=== PATIENT | female | born 1940 | race Caucasian/White ===

== ENCOUNTER 2018-12-08 07:58 | Inpatient (IN) ==
--- NOTE | 2018-11-23 13:06 | Anesthesiology Consultation ---
Date of Service November 23, 2018 Assessment & Plan (1) Encounter for pre-operative examination: Plan: Patient evaluated by PCP on 11/09/2018 and was medically cleared for surgery. Patient was added on Monday 11/20 for surgery to be done 11/24. Evaluated at PAT on 11/23/2018. Unable to reach cardiology office for most recent office note pacemaker check and cardiac testing. Was able to obtain most recent echo from PCP, as well as note from cardiology regarding patient's pacer check on . This was not a pacer check report, but does indicate that one was done. Messages left with pacemaker clinic in [place] trying to obtain pacer check. Initially, case discussed with Dr. Jernigan and patient felt to be okay surgical risk despite lack of pacemaker report. Subsequently, patient's lab work came back and showed potassium of 2.8. Discussed with Radha Spangler PA-C at surgeon's office. Patient will be postponed until potassium corrected and worked up by primary care. She will also obtain formal cardiology clearance. Most recent pacer check will need to be obtained prior to surgery when patient gets rescheduled. Chart Review Chart Review: Pending: Refer to Additional Notes / Consult section and Patient seen in Pre Admission Testing Teaching & Discussion Instructed NPO after midnight before surgery, except medications with 15 cc of water. Medication instructions provided according to the [facility] guidelines. History Surgery Operation Date: 11/24/18 08:20 Proposed Procedures p Left Foot Partial Fifth Ray Resection - Juan Hernandez MD Height/Weight Height: 5 ft 3.5 in Weight: 60.5 kg Allergies Allergy/AdvReac Type Severity Reaction Status Date / Time adhesive tape Allergy Intermediate Rash Verified 11/20/18 14:17 amoxicillin Allergy Intermediate Rash Verified 11/20/18 14:17 Medications Home Medications Medication Instructions Recorded Confirmed Last Taken diltiazem CD 240 mg 240 mg PO QPM 07/20/18 11/20/18 09/15/18 10:00 capsule,extended release 24 hr furosemide 20 mg tablet 20 mg PO QPM 07/20/18 11/20/18 09/15/18 10:00 lorazepam 1 mg tablet 0.5 mg PO BID PRN tab 07/20/18 11/20/18 Unknown metformin 500 mg tablet 500 mg PO BID 10/22/18 02/22/19 12/16/18 omeprazole 40 mg capsule,delayed 40 mg PO BID 07/20/18 11/20/18 09/15/18 18:30 release warfarin 2 mg tablet 2.5 mg PO QPM 07/20/18 11/20/18 09/13/18 guaifenesin ER 600 mg tablet, 600 mg PO Q12H PRN 07/27/18 11/20/18 09/15/18 22:00 extended release 12 hr metoprolol succinate ER 50 mg 75 mg PO HS tab 09/11/18 11/20/18 09/15/18 19:00 tablet,extended release 24 hr levothyroxine 88 mcg PO QPM 11/20/18 11/20/18 Unknown Past Medical History Medical History Osteomyelitis (Acute) Pressure ulcer (Acute) Diabetes mellitus (Chronic) On Metformin Diabetic neuropathy (Chronic) Hypothyroid (Chronic) PAD (peripheral artery disease) (Chronic) 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 ON WARFARIN. PPM placed 06/2018. Cardiac pacemaker in situ GERD (gastroesophageal reflux disease) Hypertension Mitral valve disorder Moderate mitral insufficiency and mild mitral stenosis per 12/2017 echo. On anticoagulant therapy Osteoarthritis Past Family History Family History Son Family history of diabetes mellitus Past Surgical History Surgical History S/P arterial stent (Resolved) BILAT LOWER LEGS S/P cardiac pacemaker procedure (Resolved) PLACED 3 MONTHS AGO FOR A FIB. S/P cataract extraction and insertion of intraocular lens (Resolved) R/L S/P left knee arthroscopy (Resolved) Past Anesthesia History No Hx of Anesthesia Complications and No Family Hx of Anesthesia Complications History of PONV No Motion Sickness Screening History of Motion Sickness: No Social History Smoking Status: Never smoker Do You Dip or Chew Tobacco: No Hx Alcohol Use: No Hx Substance Use: No substance use type: does not use Exercise / Class Metabolic Activity III < 4 Walking/Shop/Light housework (Denies CP with ambulation, occ SOB with ambulation, has improved since pacemaker.) Review of Systems Pt denies any recent chest pain, shortness of breath, palpitations, cough, fever or URI. +phlegm in AM, takes Mucinex, chronic. Physical Exam Vital Signs BP: 105/71 P: 72bpm SPO2: 99% RA T: 97.5 R: 16 ENMT Mouth: + dentures (full upper) and + poor dentition Thyromental Distance: > or= 3.5 Finger Breadths (3.5) Mallampati Class: II 6 teeth remain on bottom. Neck normal visual inspection and + limited neck extension Respiratory normal respiratory effort Auscultation: lungs clear to auscultation bilaterally Cardiovascular Rate/Rhythm: + abnormal rate and + abnormal rhythm Heart Sounds: no murmur Vessels: no carotid bruit Extremities: + edema (mild edema on operative foot) Testing Electrocardiogram Date: 11/23/18 Atrial fibrillation at 90 bpm with occasional ventricular paced complexes. Left axis deviation. Pulmonary disease pattern. Nonspecific ST and T wave abnormality. Prolonged QT. No previous EKGs available. *UNCONFIRMED. Echocardiogram Date: 01/26/18 ([facility]) EF: 50-55% Normal left ventricular systolic function. Mild concentric LVH. Dilated left atrium and right-sided chambers. Sclerosed mitral valve with mitral annular calcification and at least moderate 2-3+ mitral insufficiency and mild mitral stenosis. Moderate to severe tricuspid insufficiency related to dilated tricuspid annulus and evidence of mild to moderate pulmonary hypertension. Laboratory Results 11/23/18 15:02 11/23/18 15:02 PT 18.4 Seconds (9.0-12.0) H 11/23/18 15:02 INR 1.9 (0.9-1.1) H 11/23/18 15:02 APTT 31.1 Seconds (21.0-31.0) H 11/23/18 15:02
--- NOTE | 2018-11-23 14:20 | PAT Medication Instructions ---
Medication Instructions Date of Service November 23, 2018 Home Medications diltiazem CD 240 mg 240 mg PO QPM furosemide 20 mg tablet 20 mg PO QPM lorazepam 1 mg tablet 0.5 mg PO BID PRN metformin 500 mg tablet 500 mg PO BID omeprazole 40 mg capsule 40 mg PO BID warfarin 2 mg tablet 2.5 mg PO QPM guaifenesin ER 600 mg tablet, 600 mg PO Q12H PRN metoprolol succinate ER 50 mg 75 mg PO HS levothyroxine 88 mcg PO QPM ASK your surgeon for instructions warfarin 2 mg tablet 2.5 mg PO QPM DO NOT take the morning of surgery metformin 500 mg tablet 500 mg PO BID guaifenesin ER 600 mg tablet, 600 mg PO Q12H PRN Take morning of surgery With a small sip of water, OTHERWISE NOTHING TO EAT OR DRINK AFTER MIDNIGHT: lorazepam 1 mg tablet 0.5 mg PO BID PRN (if needed) omeprazole 40 mg capsule 40 mg PO BID Take evening before surgery diltiazem CD 240 mg 240 mg PO QPM furosemide 20 mg tablet 20 mg PO QPM lorazepam 1 mg tablet 0.5 mg PO BID PRN (if needed) metformin 500 mg tablet 500 mg PO BID omeprazole 40 mg capsule 40 mg PO BID guaifenesin ER 600 mg tablet, 600 mg PO Q12H PRN (if needed) metoprolol succinate ER 50 mg 75 mg PO HS levothyroxine 88 mcg PO QPM Other Notes If you have any questions please call us at [phone] or [phone] or [phone] or [phone]
[2018-11-23 15:37] LABS: Basophils # (auto) 0.01 K/uL (0-0.2); Basophils % (auto) 0.2 %; Eosinophils # (auto) 0.05 K/uL (0-0.5); Eosinophils % (auto) 1.2 %; Hematocrit (blood only) 36.3 % (37-47); Hemoglobin 11.6 g/dL (12.0-16.0); Immature Granulocytes # (auto) 0.01 K/uL (0.00-0.02); Immature Granulocytes % (auto) 0.2 %; Lymphocytes # (auto) 1.42 K/uL (1.2-3.4); Lymphocytes % (auto) 33.3 %; Mean Corpuscular Volume 80.5 fL (80-100); Mean Platelet Volume 9.6 fL (7.4-10.4); Monocytes # (auto) 0.38 K/uL (0.11-0.59); Monocytes % (auto) 8.9 %; Neutrophils # (auto) 2.39 K/uL (1.4-6.5); Neutrophils % (auto) 56.2 %; Platelet Count 162 K/uL (130-400); RDW Coefficient of Variation 20.2 % (11.5-14.5); RDW Standard Deviation 59.5 fL (36.4-46.3); Red Blood Count 4.51 M/uL (4.2-5.4); White Blood Count 4.26 K/uL (4.8-10.8)
[2018-11-23 15:42] LABS: BUN Creatinine Ratio 20.9 (10-20); Blood Urea Nitrogen 13 mg/dl (7-18); Calcium 8.7 mg/dl (8.5-10.1); Carbon Dioxide 30 mmol/L (21-32); Chloride 103 mmol/L (98-107); Creatinine Clr Calc Pharmacy 65.3 ml/min; Est GFR (African American) 101.2; Est GFR (Non-African American) 87.3; Glucose 84 mg/dl (70-99); Potassium 2.8 mmol/L (3.5-5.1); Sodium 139 mmol/L (136-145)
[2018-11-23 15:43] LABS: C Reactive Protein < 0.29 mg/dl (0-0.29)
[2018-11-23 15:55] LABS: INR 1.9 (0.9-1.1); Partial Thromboplastin Ratio 1.1; Partial Thromboplastin Time 31.1 Seconds (21.0-31.0); Prothrombin Time 18.4 Seconds (9.0-12.0)
[2018-11-23 16:00] LABS: Acanthocytes 1+; Anisocytosis Present
[2018-11-24 05:26] LABS: Estimated Average Glucose 100 mg/dl; Hemoglobin A1C 5.1 % (4.5-5.6)
[~2018-12-08 07:58] MED LIST: BUPIVACAINE/EPINEPHRINE 0.5% MPF 1:200,000 30 ML VIAL ONE; CEFAZOLIN 1000MG 1,000 MG/7.5 ML SYR IV SCH; CEFAZOLIN 2000MG 2,000 MG/15 ML SYR IV SCH; DEXAMETHASONE SOD INJ 4 MG/ML VIAL ONE; LACTATED RINGER'S 1,000 ML IV SCH
[2018-12-08 08:33] LABS: INR 1.3 (0.9-1.1); Prothrombin Time 12.9 Seconds (9.0-12.0)
[2018-12-08 08:34] LABS: Partial Thromboplastin Time 26.9 Seconds (21.0-31.0)
[2018-12-08 08:41] LABS: BUN Creatinine Ratio 17.1 (10-20); Calcium 9.1 mg/dl (8.5-10.1); Est GFR (African American) 96.2; Potassium 3.3 mmol/L (3.5-5.1)
[2018-12-08] MEDS ORDERED: BUPIVACAINE 0.5 % 5 MG/1 ML PF 10ML VIAL ONE (09:17)
--- NOTE | 2018-12-08 09:51 | History & Physical Bridge Note ---
Date of Service December 08, 2018 History & Physical Bridge Note I have examined the patient, reviewed the History & Physical and in the interval since the performance of the History & Physical I have noted the following changes of clinical significance: no changes noted
[2018-12-08] MEDS ORDERED: PROPOFOL IV EMULSION 10 MG/ML 20 ML VIAL IV ONE (10:05)
[2018-12-08] MEDS ORDERED: fentaNYL citrate 100 MCG/2 ML VIAL ONE (10:05)
[2018-12-08] MEDS ORDERED: LIDOCAINE HCL 2% 2 ML VIAL/AMP(20MG/ML) INFIL ONE (10:07)
[2018-12-08] MEDS ORDERED: SUCCINYLCHOLINE CHLORIDE 20 MG/ML 10 ML VIAL ONE (10:41)
[2018-12-08] MEDS ORDERED: DEXAMETHASONE SOD INJ 4 MG/ML VIAL ONE (10:46)
[2018-12-08] MEDS ORDERED: ONDANSETRON INJ 2 MG/ML 2 ML VIAL ONE (10:46)
[2018-12-08] MEDS ORDERED: fentaNYL citrate 100 MCG/2 ML VIAL IV PRN (10:54)
[2018-12-08] MEDS ORDERED: ePHEDrine sulfate 50 MG/ML AMP IV PRN (10:54)
[2018-12-08] MEDS ORDERED: PROMETHAZINE HCL 6.25 MG in SODIUM CHLORIDE 0.9% 50 ML IV PRN (10:54)
[2018-12-08] MEDS ORDERED: ATROPINE SULFATE 0.1 MG/ML 10ML SYR IV PRN (10:54)
[2018-12-08] MEDS ORDERED: ONDANSETRON INJ 2 MG/ML 2 ML VIAL IV PRN ×2 (10:54→12:54)
[2018-12-08] MEDS ORDERED: POVIDONE-IODINE OP SOLN 30 ML BTL ONE (11:07)
[2018-12-08] MEDS ORDERED: GLYCOPYRROLATE 0.2 MG/ML VIAL ONE (11:23)
[2018-12-08] MEDS ORDERED: NEOSTIGMINE METHYLSULFATE 5 MG/5 ML SYR ONE (11:23)
[2018-12-08] MEDS ORDERED: ESMOLOL HCL INJ 10 MG/ML 10ML VIAL IV ONE (11:23)
--- NOTE | 2018-12-08 11:23 | Post Operative Brief Note ---
Immediate Post Op Note v1 Date of Surgery December 08, 2018 Pre & Post Diagnosis Operation Date: 12/08/18 10:00 Pre-Op Diagnosis: Osteomyelitis Left Fifth Metatarsal Post-Op Diagnosis: Osteomyelitis Left Fifth Metatarsal head Procedure Operation Date: 12/08/18 10:00 Actual Procedures p Left Foot Partial Fifth Ray Resection(Left) - Juan Hernandez MD Surgeon Juan Hernandez MD Smocker benny Estimated Blood Loss 3 Findings Consistent with Post-Op Diagnosis Specimens left fooot partial fifth ray, culture Anesthesia Type General Regional Complications none Disposition Accompanied Patient To Recovery: No Disposition: Recovery Room
[2018-12-08] MEDS ORDERED: METOPROLOL TARTRATE 1 MG/ML VIAL IV ONE (11:32)
--- NOTE | 2018-12-08 11:32 | Operative Report ---
Post Operative Report Pre & Post Diagnosis Operation Date: 12/08/18 10:00 Pre-Op Diagnosis: Osteomyelitis Left Fifth Metatarsal Post-Op Diagnosis: Osteomyelitis Left Fifth Metatarsal head Procedure Operation Date: 12/08/18 10:00 Actual Procedures p Left Foot Partial Fifth Ray Resection(Left) - Juan Hernandez MD Surgeon Juan Hernandez M.D. [employer] Melissa Spangler PA-C Estimated Blood Loss 3 Findings Consistent with Post-Op Diagnosis Specimens right 5th ray Anesthesia Type General Regional Complications none Disposition Accompanied Patient To Recovery: No Disposition: Recovery Room Description of Procedure Patient was taken to the operating room, placed under general anesthesia, with peripheral nerve block. Time out performed, given 1gm IV ancef for surgical prophylaxis. She was prepped and draped in routine sterile fashion. I was present during the entire case, please see Dr. Hernandez's operative report for further detail. Patient was awakened and taken to the recovery room in stable condition. I attest to the content of the Intraoperative Record and any orders documented therein. Any exceptions are noted below.
--- NOTE | 2018-12-08 12:28 | Anesthesiology Progress Note ---
Date of Service December 08, 2018 Anesthesia Post Procedure Vital Signs Vital Signs: Temp Pulse Pulse Resp BP Pulse Ox 12/08/18 12:20 36.6 C 86 17 112/71 96 12/08/18 12:10 95 H 16 121/76 97 12/08/18 12:00 105 H 17 128/71 94 12/08/18 11:50 122 H 23 101/76 12/08/18 11:43 37.2 C 113 H 15 124/75 12/08/18 08:47 36.5 C 84 22 118/77 95 Pain Intensity Left Foot: Pain Intensity: 0 Notes Mental Status: alert / awake / arousable Patient Amnestic to Procedure: Yes Nausea / Vomiting: adequately controlled Pain: adequately controlled Airway Patency, RR, SpO2: stable & adequate BP & HR: stable & adequate Hydration State: stable & adequate Anesthetic Complications: no major complications apparent Notes: Block working well in pacu
[2018-12-08] MEDS ORDERED: SOD PHOSPHATE/SOD BIPHOSPHATE ENEMA 132 ML BTL PR PRN (12:54)
[2018-12-08] MEDS ORDERED: MAGNESIUM HYDROXIDE SUSP 30 ML UDC PO PRN (12:54)
[2018-12-08] MEDS ORDERED: LORazepam 0.5 MG TAB PO PRN (12:54)
[2018-12-08] MEDS ORDERED: TRAMADOL HCL 50 MG TABLET PO PRN (12:54)
[2018-12-08] MEDS ORDERED: HYDROmorphone INJ 0.5 MG/0.5 ML SYR IV PRN (12:54)
[2018-12-08] MEDS ORDERED: OXYCODONE HCL IR 5 MG TAB (IMMEDIATE RELEASE) PO PRN (12:54)
[2018-12-08] MEDS ORDERED: ACETAMINOPHEN 500 MG TAB PO PRN (12:54)
[2018-12-08] MEDS ORDERED: BISACODYL 10 MG SUPP PR PRN (12:54)
[2018-12-08] MEDS ORDERED: PHARMACY GLYCEMIC MGMT CONSULT SCH (13:15)
[2018-12-08] MEDS: CARBOHYDRATES FOR HYPOGLYCEMIA PO PRN ×3 (13:22→14:23)
[2018-12-08] MEDS ORDERED: GLUCOSE 40% GEL 15 GM TUBE PO PRN (13:30)
[2018-12-08] MEDS ORDERED: DEXTROSE 50% 50 ML SYRINGE IV PRN (13:30)
[2018-12-08] MEDS ORDERED: GLUCAGON FOR INJ 1 MG VIAL IM PRN (13:30)
[2018-12-08] MEDS ORDERED: GLUCOSE 10 TABS/TUBE PO PRN (13:30)
--- NOTE | 2018-12-08 14:00 | Operative Report ---
DATE OF OPERATION: 12/08/2018 PREOPERATIVE DIAGNOSES: Chronic wound left foot fifth metatarsophalangeal joint with suspected underlying osteomyelitis of the metatarsal head. POSTOPERATIVE DIAGNOSES: Chronic wound left foot fifth metatarsophalangeal joint with suspected underlying osteomyelitis of the metatarsal head. PROCEDURE: Partial resection of left foot fifth ray. SURGEON: Dr. Hernandez. HUMAN RESOURCES HR REPRESENTATIVE: Melissa Spangler PA-C. No resident or fellow available. ANESTHESIA: General with regional nerve ankle block done by Anesthesia. INDICATIONS FOR PROCEDURE: The patient is a 78-year-old female status post revascularization of her left foot and chronic treatments in the [facility] for a nonhealing fifth metatarsal ulcer. She is diabetic and dysvascular. She has a pacemaker and cannot have an MRI. CT scan suggests osteomyelitis and given the chronic nature of the wound, amputation is recommended. PROCEDURE IN DETAIL: Informed consent was obtained. The patient was identified. She identified the operative site as the left foot fifth ray which I marked with my initials. A preop surgical time out was performed and a preop dose of IV antibiotics was given. She was taken to the Operating Room, positioned supine on the OR table with a bump under the left hip. No tourniquet was applied due to her dysvascular and revascularization status. Dried skin was peeled off revealing a shallow ulceration over the fifth metatarsal head laterally about 5 mm in diameter and 3 mm deep. This probed directly down to the bone, but the bone itself was not exposed. There was no purulence, abscess or significant drainage evident. The leg was prescrubbed and prepped with Betadine in usual sterile fashion. She received a preop dose of IV antibiotics. She has been on chronic oral antibiotics. She has been seen and evaluated by Medicine preoperatively. Her Coumadin has been held for 5 days. INR is 1.4. Her potassium was low and this has been corrected and is currently 3.3. A tennis racquet type incision was made around the base of the toe ellipsing out the ulceration at its margins by several millimeters. This was then carried up the shaft dorsolaterally. Electrocautery was utilized to raise full thickness flaps subcutaneously, dorsally and plantarly. The flexor and extensor tendons were resected at the level of bone resection. Fluoroscopic image was utilized to confirm a resection about midway down the fifth metatarsal. This was cut with a saw beveling it lateral to medial and dorsal to plantar. This was then smoothed off with a rongeur. A human resources hr representative image was obtained. The toe was then removed on mass. No purulence was noted. A culture was obtained of the wound bed as well as of the deep tissues of the joint and fifth metatarsal head. The metatarsal head itself was not notably soft. Meticulous hemostasis was performed. There was minimal bleeding, but there was some punctate bleeding present. Tissue generally looked healthy. Betadine lavage irrigation was performed followed by sterile saline. The skin edges were trimmed in the mid portion to eliminate redundancy and then the wound was loosely reapproximated with 2-0 nylon using horizontal mattress and simple stitches. Abundant space was left in between stitches for drainage. I do not feel that antibiotic beads or a vacuum dressing or a drain were necessary. The leg was cleaned with wet and dry sponges and fluffs were placed between the toes along with a bulky soft sterile dressing, Xeroform, 4 x 4's, ABD, Gian wrap and a postop shoe. The patient was awakened from anesthesia without difficulty and taken to the Recovery Room in stable condition. There were no complications. Blood loss was 3 mL. The culture and resected digit were sent for specimen. Counts were correct. At the conclusion of the operation, I spoke to the patient's son and informed him of my findings and postoperative instructions were given. She will be continued on postoperative antibiotics. Her Coumadin will be restarted. Medicine and ID will be consulted. Her weightbearing will be limited and she will elevate the leg to minimize the swelling and wound problems. I attest to the content of the Intraoperative Record and any orders documented therein. Any exception s are noted below.
--- NOTE | 2018-12-08 14:21 | Infectious Disease Consult ---
Date of Consultation December 08, 2018 Assessment & Plan (1) Non-pressure chronic ulcer of other part of left foot limited to breakdown of skin: continue ancef for now, all previous cultures with skin lyudmila only. await OR culture results. History of Present Illness Attending Physician: Juan Hernandez MD pt admitted electively for left 5th toe amp. Has been following with ID for non healing wound. All previous cutlures grew corynebacterium only. She was on po abx emperically and those were stopped in late Sep. She states she has been off of abx since then. At last wound center visit a new ulceration was noted and she was sent to ortho for surgical management. She went to OR earlier today for amp. tolerated well. Intraoperative cutlure obtained, penidng. She was placed on ancef post op, tolerating well. Denies any pain, no drainage, no abx at home. no f/c. blood sugar low post op, but she denies dizziness, states she feels cold. no cp, sob, cough, n/v/d, abd pain. Allergies Allergy/AdvReac Type Severity Reaction Status Date / Time adhesive tape Allergy Intermediate Rash Verified 12/08/18 08:40 amoxicillin Allergy Intermediate Rash Verified 12/08/18 08:40 Home Medications Home Medications Medication Instructions Recorded Confirmed Type diltiazem CD 240 mg 240 mg PO QPM 07/20/18 12/08/18 History capsule,extended release 24 hr furosemide 20 mg tablet 20 mg PO QPM 07/20/18 12/08/18 History lorazepam 1 mg tablet 0.5 mg PO BID PRN tab 07/20/18 12/08/18 History metformin 500 mg tablet 500 mg PO BID 07/20/18 12/08/18 History omeprazole 40 mg capsule,delayed 40 mg PO BID 07/20/18 12/08/18 History release warfarin 2 mg tablet 2.5 mg PO QPM 07/20/18 12/08/18 History guaifenesin ER 600 mg tablet, 600 mg PO Q12H PRN 07/27/18 12/08/18 History extended release 12 hr metoprolol succinate ER 50 mg 75 mg PO HS tab 09/11/18 12/08/18 History tablet,extended release 24 hr levothyroxine 88 mcg PO QPM 11/20/18 12/08/18 History Patient History Medical History Osteomyelitis (Acute) Pressure ulcer (Acute) Diabetes mellitus (Chronic) On Metformin Diabetic neuropathy (Chronic) Hypothyroid (Chronic) PAD (peripheral artery disease) (Chronic) 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 ON WARFARIN. PPM placed 06/2018. Cardiac pacemaker in situ GERD (gastroesophageal reflux disease) Hypertension Mitral valve disorder Moderate mitral insufficiency and mild mitral stenosis per 12/2017 echo. On anticoagulant therapy Osteoarthritis Surgical History S/P arterial stent (Resolved) BILAT LOWER LEGS S/P cardiac pacemaker procedure (Resolved) PLACED 3 MONTHS AGO FOR A FIB. S/P cataract extraction and insertion of intraocular lens (Resolved) R/L S/P left knee arthroscopy (Resolved) Family History Son Family history of diabetes mellitus Social History Preferred Language: [place] Communication Ability: Effective Coordinating Producer Required: No Beliefs That Will Affect Care: None marital status: Current Living Situation: Alone Current Living Situation Comment: HAS FAMILY CLOSE TO CHECK IN , ALSO IS BEING SEEN CURRENTLY BY [facility] current occupational status: retired Other Information That Helps Us Care for You: No other: HAS A WALKER AND CANE THAT SHE DOESN'T USE OFTEN Feels Safe at Home: Yes Safety Concerns: Feels Safe At This Time Smoking Status: Never smoker Hx Alcohol Use: No Hx Substance Use: No well-balanced diet: about half the time during the past year weight has: remained stable Review of Systems all remaining ros reviewed and are negative Physical Exam Vital Signs (Past 24 Hours): Last Vital Signs Temp 36.4 C L 12/08/18 12:54 Pulse 74 12/08/18 13:40 Resp 18 12/08/18 13:40 BP 114/75 12/08/18 13:40 Pulse Ox 100 12/08/18 13:40 Constitutional: WD/WN, vitals as above Eyes: PERRL, conjunctivae normal, anicteric sclerae ENMT: external ear and nose normal, oropharynx normal Neck: normal visual inspection Respiratory: normal respiratory effort, lungs clear to auscultation Cardiovascular: Rate/Rhythm: regular rate Heart Sounds: + murmur Gastrointestinal (Abdomen): normal bowel sounds, soft, nontender, no hepatosplenomegaly Musculoskeletal: no cyanosis or clubbing, extremities motor strength 5/5 Skin: no rashes, warm and dry surgical dressing c/d/i Psychiatric: A+Ox3, euthymic affect
[2018-12-08] MEDS: POTASSIUM CHLORIDE 10 MEQ in SODIUM CHLORIDE 0.9% 1000ML 1,000 ML IV SCH ×2 (14:50→16:12)
[2018-12-08] MEDS ORDERED: DEXTROSE 5% 1,000 ML IV SCH (14:50)
--- NOTE | 2018-12-08 14:50 | Pharmacy Report ---
Glycemic Control Consultation - Date of Service December 08, 2018 - Scope Scope: Glycemic Pharmacist consulted by Melissa Spangler on 12/08/18 for glycemic control and to write orders per [facility] inpatient glycemic control protocol - Objective Weight: 61.32 kg Accuchecks BSG (last 24hrs): 12/08/18 12/08/18 12/08/18 08:15 08:30 11:58 Glucose 94 POC Glucose 61 L* 83 12/08/18 12/08/18 12/08/18 13:14 13:17 13:37 Glucose POC Glucose 33 L* 40 L* 20 L* 12/08/18 12/08/18 12/08/18 13:43 14:05 14:23 Glucose POC Glucose 30 L* 61 L* 47 L* Laboratory Data (last 24hrs): 12/08/18 08:15 Potassium 3.3 L Carbon Dioxide 28 Anion Gap 7.0 Creatinine 0.70 Est Cr Clr Drug Dosing 56.0 HbA1c: Hemoglobin A1c 5.1 % (4.5-5.6) 11/23/18 15:02 - Recent Pertinent Medications Outpatient Anti-diabetic Regimen: * Metformin 500mg BIDM * A1c = 5.1 % 11/23/18 - Assessment & Plan Assessment & Plan: ASSESSMENT/PLAN: * BSG upon admission to the floor: 33mg/dL. I asked Ms. Marinelli's nurse to please maintain q15 checks until BSGs >100mg/dL X2. BSGs continued to trend down as low as 20mg/dL. Uncertain etiology at this time. Different glucometers were utilized. She has not received any insulin today. Last home dose of Metformin was last night. * I did discuss with the admitting physician and suggested a more aggressive regimen: GCs or IVfs containing dextrose. We agreed upon D5 @ 75cc/hr for now. * Serum BSG is ordered * Please note that the plan above was derived based on current level of insulin resistance and hospital stress. These recommendations are appropriate for inpat ient admission only. Plan of care upon discharge will need to be reassessed to avoid potential outpatient hypo/hyperglycemia. Thank you.
[2018-12-08 15:20] LABS: Basophils # (auto) 0.01 K/uL (0-0.2); Basophils % (auto) 0.2 %; Eosinophils # (auto) 0.05 K/uL (0-0.5); Eosinophils % (auto) 1.1 %; Hematocrit (blood only) 36.6 % (37-47); Hemoglobin 11.6 g/dL (12.0-16.0); Immature Granulocytes # (auto) 0.01 K/uL (0.00-0.02); Immature Granulocytes % (auto) 0.2 %; Lymphocytes # (auto) 1.14 K/uL (1.2-3.4); Lymphocytes % (auto) 25.4 %; Mean Corpuscular Volume 84.3 fL (80-100); Mean Platelet Volume 9.5 fL (7.4-10.4); Monocytes # (auto) 0.26 K/uL (0.11-0.59); Monocytes % (auto) 5.8 %; Neutrophils # (auto) 3.01 K/uL (1.4-6.5); Neutrophils % (auto) 67.3 %; Platelet Count 168 K/uL (130-400); RDW Coefficient of Variation 19.3 % (11.5-14.5); RDW Standard Deviation 59.3 fL (36.4-46.3); Red Blood Count 4.34 M/uL (4.2-5.4); White Blood Count 4.48 K/uL (4.8-10.8)
[2018-12-08 15:36] LABS: BUN Creatinine Ratio 13.4 (10-20); Calcium 8.5 mg/dl (8.5-10.1); Creatinine Clr Calc Pharmacy 46.8 ml/min; Est GFR (African American) 79.4; Est GFR (Non-African American) 68.5; Magnesium 1.9 mg/dl (1.8-2.4); Potassium 3.6 mmol/L (3.5-5.1)
[2018-12-08 15:37] LABS: Phosphorus 3.8 mg/dl (2.5-4.9)
[2018-12-08 15:43] LABS: Mean Corpuscular Hgb Conc 31.7 g/dL (32-36)
--- NOTE | 2018-12-08 15:59 | Fluoroscopy Report ---
FL toe LT 2V CLINICAL HISTORY: LT 5TH METATARSAL PARTIAL AMP COMPARISON STUDY: November 20, 2018 FLUOROSCOPY TIME: 4 seconds. NUMBER OF FLUOROSCOPIC IMAGES: 1 FINDINGS: A single intraoperative fluoroscopic spot image demonstrates postsurgical changes of a fift h toe amputation at the mid metatarsal level. IMPRESSION: Left fifth toe transmetatarsal amputation. Electronically signed by: Jaime Kathleen M.D. 12/08/2018 3:58 PM
[2018-12-08] MEDS: guaiFENesin 600 MG TABCR PO PRN (16:04)
--- NOTE | 2018-12-08 16:20 | Orthopedic Progress Note ---
Date of Service December 08, 2018 Assessment & Plan (1) Diabetic foot ulcer: POD 0 - S/P left 5th ray resection Doing well, may be out of bed weight bearing as tolerated left foot on heel and with post op shoe on left foot Ice to left foot PRN Elevate left foot above heart to relieve pain/swelling Keep shoe on left foot at all times Heel precuations/pressure sore precautions PT/OT to start tomorrow Medicine,ID and Glycemic control consult Restart coumadin this evening diabetic diet Will re-eval in AM Case management for disposition. Present on Admission?: Yes Subjective Patient doing well, tolerated lunch today. Denies chest pain, shortness of breath. Denies pain in left foot. Left foot elevated on a pillow. Physical Exam Vital Signs (Past 24 Hours): Last Vital Signs Temp 36.4 C L 12/08/18 15:37 Pulse 83 12/08/18 15:37 Resp 18 12/08/18 15:37 BP 127/97 12/08/18 15:37 Pulse Ox 92 12/08/18 15:37 Physical Exam: Left foot boot in place, dressings in place. Able to wiggle toes, 3rd and 4th toes mildly numb. Good capillary refill. Toes warm. Patient seen by Dr. Hernandez (1) Diabetic foot ulcer Diabetic foot ulcer location: heel Diabetes mellitus type: type 2 Laterality: left Non-pressure ulcer stage: limited to breakdown of skin Qualified Code(s): E11.621 - Type 2 diabetes mellitus with foot ulcer; L97.421 - Non-pressure chronic ulcer of left heel and midfoot limited to breakdown of skin
[2018-12-08] MEDS: CEFAZOLIN 1000MG 1,000 MG/7.5 ML SYR IV SCH (18:10)
[2018-12-08] MEDS: WARFARIN SOD 2.5 MG TAB PO SCH (18:11)
--- NOTE | 2018-12-08 21:23 | Consultation ---
Date of Consultation December 08, 2018 Assessment & Plan (1) Diabetic foot ulcer: As per ortho Pre-op Hb 11.6 (2) DM type 2 (diabetes mellitus, type 2): Pt with multiple hypoglycemic episodes that were asx Started on dextrose continuous and improving Called by nursing later in the night for update: apparently they were not getting a good pulse ox on pt with fingertip monitor due to circulation issues, however O2 sats were WNL with forehead monitor Used BSG stick on upper arm and BS was much higher than readings done at the same time from fingerstick Venous draw was c/w upper arm BSG stick Dextrose has been stopped as those results were elevated in the 200s Most recent was low 100s SSI ordered by pharmacy--I have cx this given pt will likely moderate her BS given her only home DM medication is metformin and A1c is 5.1. It would likely become problematic to give insulin in this setting, especially with pt's volatile BS readings. It does appear that pt's circulation is poor enough that BSG fingersticks are not an appropriate way for her to measure her BS It appears a BSG stick in the upper arm has readings c/w venous draw--should be advised to check her BS that way moving forward. (3) Afib: Resume coumadin as per ortho On hold for the last 6 days pre-op (4) Hypothyroid: continue home meds (5) GERD (gastroesophageal reflux disease): continue home meds (6) DVT prophylaxis: As per ortho History of Present Illness Attending Physician: Juan Hernandez MD History of Present Illness 78 y/o F who was admitted on 12/08 s/p L foot surgery with Dr. Hernandez. Pt is feeling well post-op. Tolerating PO without issue. Pt denies fever, SOB, chest pain, abd pain, n/v/c/d, LE swelling. Was called by nursing for pt BS in the 20s and 30s. Pt is completely asx with this. VSS. Pt was given D5 with minimal response. At one point BS went to 60s, however dropped back down on repeat. Pt states that she takes metformin BID. She did take her dose last night and has not eaten all day today until just recently due to OR status. Allergies Allergy/AdvReac Type Severity Reaction Status Date / Time adhesive tape Allergy Intermediate Rash Verified 12/08/18 08:40 amoxicillin Allergy Intermediate Rash Verified 12/08/18 08:40 Home Medications Home Medications Medication Instructions Recorded Confirmed Type diltiazem CD 240 mg 240 mg PO QPM 07/20/18 12/08/18 History capsule,extended release 24 hr furosemide 20 mg tablet 20 mg PO QPM 07/20/18 12/08/18 History lorazepam 1 mg tablet 0.5 mg PO BID PRN tab 07/20/18 12/08/18 History metformin 500 mg tablet 500 mg PO BID 07/20/18 12/08/18 History omeprazole 40 mg capsule,delayed 40 mg PO BID 07/20/18 12/08/18 History release warfarin 2 mg tablet 2.5 mg PO QPM 07/20/18 12/08/18 History guaifenesin ER 600 mg tablet, 600 mg PO Q12H PRN 07/27/18 12/08/18 History extended release 12 hr metoprolol succinate ER 50 mg 75 mg PO HS tab 09/11/18 12/08/18 History tablet,extended release 24 hr levothyroxine 88 mcg PO QPM 11/20/18 12/08/18 History Patient History Medical History Osteomyelitis (Acute) Pressure ulcer (Acute) Diabetes mellitus (Chronic) On Metformin Diabetic neuropathy (Chronic) Hypothyroid (Chronic) PAD (peripheral artery disease) (Chronic) 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 ON WARFARIN. PPM placed 06/2018. Cardiac pacemaker in situ GERD (gastroesophageal reflux disease) Hypertension Mitral valve disorder Moderate mitral insufficiency and mild mitral stenosis per 12/2017 echo. On anticoagulant therapy Osteoarthritis Surgical History S/P arterial stent (Resolved) BILAT LOWER LEGS S/P cardiac pacemaker procedure (Resolved) PLACED 3 MONTHS AGO FOR A FIB. 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 Beliefs That Will Affect Care: None marital status: Current Living Situation: Alone Current Living Situation Comment: HAS FAMILY CLOSE TO CHECK IN , ALSO IS BEING SEEN CURRENTLY BY [facility] current occupational status: retired Other Information That Helps Us Care for You: No other: HAS A WALKER AND CANE THAT SHE DOESN'T USE OFTEN Feels Safe at Home: Yes Safety Concerns: Feels Safe At This Time Smoking Status: Never smoker Hx Alcohol Use: No Hx Substance Use: No well-balanced diet: about half the time during the past year weight has: remained stable Review of Systems Pertinent positives and negatives reviewed in HPI--all others negative Physical Exam Vital Signs (Past 24 Hours): Last Vital Signs Temp 36.8 C 12/08/18 19:23 Pulse 98 H 12/08/18 19:23 Resp 17 12/08/18 19:23 BP 110/67 12/08/18 19:23 Pulse Ox 92 12/08/18 19:23 Constitutional: WD/WN, vitals as above Eyes: normal visual mehta by confrontation and + anicteric sclerae Neck: normal visual inspection and trachea midline Respiratory: normal respiratory effort, lungs clear to auscultation Cardiovascular: Rate/Rhythm: regular rate and regular rhythm Gastrointestinal (Abdomen): Inspection/Auscultation: abdomen not distended Percussion/Palpation: abdomen soft; abdomen nontender Musculoskeletal: Head/Neck/Chest: normocephalic and head atraumatic negative for edema, peripheral pulses intact Skin: no rashes, warm and dry Neurologic: awake; not confused Speech / Cognition: normal speech Psychiatric: A+Ox3, euthymic affect (1) Diabetic foot ulcer Diabetic foot ulcer location: heel Diabetes mellitus type: type 2 Laterality: left Non-pressure ulcer stage: limited to breakdown of skin Qualified Code(s): E11.621 - Type 2 diabetes mellitus with foot ulcer; L97.421 - Non-pressure chronic ulcer of left heel and midfoot limited to breakdown of skin
[2018-12-08] MEDS: METOPROLOL SUCC 50MG EXT REL TAB PO SCH (22:14)
[2018-12-08] MEDS: DOCUSATE SODIUM 100 MG CAP PO SCH (22:14)
[2018-12-08] MEDS: LEVOTHYROXINE SODIUM 88 MCG TABLET PO SCH (22:15)
[2018-12-08] MEDS: PANTOprazole 40 MG TAB PO SCH (22:16)
[2018-12-08] MEDS: dilTIAZem HCL 240 MG CAPCR PO SCH (22:16)
[2018-12-08] MEDS: FUROSEMIDE 20 MG TAB PO SCH (22:17)
[2018-12-09] MEDS: POTASSIUM CHLORIDE 10 MEQ in SODIUM CHLORIDE 0.9% 1000ML 1,000 ML IV SCH (01:53)
[2018-12-09] MEDS: CEFAZOLIN 1000MG 1,000 MG/7.5 ML SYR IV SCH ×3 (01:54→23:43)
[2018-12-09] MEDS: LEVOTHYROXINE SODIUM 88 MCG TABLET PO SCH (05:13)
[2018-12-09 06:40] LABS: Basophils # (auto) 0.01 K/uL (0-0.2); Basophils % (auto) 0.2 %; Eosinophils # (auto) 0.11 K/uL (0-0.5); Eosinophils % (auto) 2.2 %; Hematocrit (blood only) 34.1 % (37-47); Hemoglobin 10.8 g/dL (12.0-16.0); Immature Granulocytes # (auto) 0.01 K/uL (0.00-0.02); Immature Granulocytes % (auto) 0.2 %; Lymphocytes # (auto) 1.81 K/uL (1.2-3.4); Lymphocytes % (auto) 36.9 %; Mean Corpuscular Hgb Conc 31.7 g/dL (32-36); Mean Platelet Volume 9.4 fL (7.4-10.4); Monocytes # (auto) 0.41 K/uL (0.11-0.59); Monocytes % (auto) 8.4 %; Neutrophils # (auto) 2.56 K/uL (1.4-6.5); Neutrophils % (auto) 52.1 %; Platelet Count 174 K/uL (130-400); RDW Coefficient of Variation 19.2 % (11.5-14.5); RDW Standard Deviation 59.1 fL (36.4-46.3); Red Blood Count 4.06 M/uL (4.2-5.4); White Blood Count 4.91 K/uL (4.8-10.8)
[2018-12-09 06:52] LABS: INR 1.2 (0.9-1.1); Prothrombin Time 12.4 Seconds (9.0-12.0)
[2018-12-09 07:08] LABS: BUN Creatinine Ratio 12.2 (10-20); Calcium 8.2 mg/dl (8.5-10.1); Creatinine Clr Calc Pharmacy 45.7 ml/min; Est GFR (African American) 77.2; Est GFR (Non-African American) 66.6; Potassium 4.1 mmol/L (3.5-5.1)
--- NOTE | 2018-12-09 07:55 | Anesthesiology Progress Note ---
Date of Service December 09, 2018 Anesthesia Post Procedure Vital Signs Vital Signs: Temp Pulse Pulse Pulse Pulse Resp BP 12/09/18 07:23 37.0 C 96 H 16 101/70 12/09/18 05:15 106 H 12/09/18 03:10 36.4 C L 118 H 16 108/76 12/09/18 00:00 76 12/08/18 23:12 36.9 C 108/84 12/08/18 21:39 12/08/18 19:23 36.8 C 98 H 17 110/67 12/08/18 15:37 36.4 C L 83 18 12/08/18 14:40 81 16 12/08/18 13:40 74 18 12/08/18 13:10 73 15 12/08/18 12:54 36.4 C L 83 16 12/08/18 12:30 78 12 12/08/18 12:20 36.6 C 86 17 12/08/18 12:10 95 H 16 12/08/18 12:00 105 H 17 12/08/18 11:50 122 H 23 12/08/18 11:43 37.2 C 113 H 15 12/08/18 08:47 36.5 C 84 22 BP Pulse Ox 12/09/18 07:23 95 12/09/18 05:15 12/09/18 03:10 92 12/09/18 00:00 12/08/18 23:12 92 12/08/18 21:39 93 12/08/18 19:23 92 12/08/18 15:37 127/97 92 12/08/18 14:40 130/89 91 12/08/18 13:40 114/75 100 12/08/18 13:10 110/75 100 12/08/18 12:54 106/68 95 12/08/18 12:30 125/70 100 12/08/18 12:20 112/71 96 12/08/18 12:10 121/76 97 12/08/18 12:00 128/71 94 12/08/18 11:50 101/76 12/08/18 11:43 124/75 12/08/18 08:47 118/77 95 Pain Intensity Left Foot: Pain Intensity: 0 Notes Mental Status: alert / awake / arousable and participated in evaluation Patient Amnestic to Procedure: Yes Nausea / Vomiting: adequately controlled Pain: adequately controlled Airway Patency, RR, SpO2: stable & adequate BP & HR: stable & adequate Hydration State: stable & adequate Anesthetic Complications: no major complications apparent
[2018-12-09] MEDS: MULTIVITAMIN TAB PO SCH (08:58)
[2018-12-09] MEDS: PANTOprazole 40 MG TAB PO SCH ×2 (08:58→20:44)
[2018-12-09] MEDS: DOCUSATE SODIUM 100 MG CAP PO SCH ×2 (08:58→20:43)
[2018-12-09] MEDS: guaiFENesin 600 MG TABCR PO PRN (10:28)
--- NOTE | 2018-12-09 11:00 | Orthopedic Progress Note ---
Date of Service December 09, 2018 Assessment & Plan (1) Diabetic foot ulcer: POD 1 - S/P left 5th ray resection Doing well, may be out of bed weight bearing as tolerated left foot on heel and with post op shoe on left foot Ice to left foot PRN. Encouraged elevation of her left foot above heart to relieve pain/swelling Keep shoe on left foot at all times Heel Precautions/pressure sore precautions PT/OT to start Today Medicine,ID and Glycemic control consult-Appreciated assistance Coumadin resumed, follow PT/INR daily during inpatient stay Continue diabetic diet - Tolerating well We will Hep-Lock IV. Will re-eval in AM, And plan for dressing change. Dr. Hernandez present for today's visit. Case management for disposition. - Plan for discharge to home tomorrow with in- home nursing. Subjective She sitting up in a chair. She denies any pain in her left foot. She states that she feels that she is doing very well. She currently meeting with social sciences department chair. She would like to go home as she has had in-home therapy and nursing in the past. Physical Exam Vital Signs (Past 24 Hours): Last Vital Signs Temp 36.6 C 12/09/18 10:41 Pulse 80 12/09/18 10:41 Resp 16 12/09/18 10:41 BP 98/66 L 12/09/18 10:41 Pulse Ox 95 12/09/18 10:41 Physical Exam: Exam of her left foot: She does have some moderate Edema. Calf is nontender to palpation. No pitting. Her left foot dressings are clean, dry and intact. Her left foot is in the postop shoe. She is able to wiggle her toes. Capillary refill is brisk. Distal sensation is normal on the great toe and the second toe. The third and fourth toes are mildly decreased sensation Most likely due to the nerve block. Left foot elevated on a stool. Results & Data Laboratory Results 12/09/18 12/09/18 12/09/18 Range/Units 06:16 06:16 06:16 WBC 4.91 (4.8-10.8) K/uL RBC 4.06 L (4.2-5.4) M/uL Hgb 10.8 L (12.0-16.0) g/dL Hct 34.1 L (37-47) % MCV 84.0 (80-100) fL MCH 26.6 (25-34) pg MCHC 31.7 L (32-36) g/dL RDW Std Deviation 59.1 H (36.4-46.3) fL RDW Coeff of Lucas 19.2 H (11.5-14.5) % Plt Count 174 (130-400) K/uL MPV 9.4 (7.4-10.4) fL Immature Gran % (Auto) 0.2 % Neut % (Auto) 52.1 % Lymph % (Auto) 36.9 % [place] % (Auto) 8.4 % Eos % (Auto) 2.2 % Baso % (Auto) 0.2 % Immature Gran # (Auto) 0.01 (0.00-0.02) K/uL Neut # (Auto) 2.56 (1.4-6.5) K/uL Lymph # (Auto) 1.81 (1.2-3.4) K/uL [place] # (Auto) 0.41 (0.11-0.59) K/uL Eos # (Auto) 0.11 (0-0.5) K/uL Baso # (Auto) 0.01 (0-0.2) K/uL PT 12.4 H (9.0-12.0) Seconds INR 1.2 H (0.9-1.1) Sodium 137 (136-145) mmol/L Potassium 4.1 (3.5-5.1) mmol/L Chloride 107 (98-107) mmol/L Carbon Dioxide 25 (21-32) mmol/L Anion Gap 5.0 (3-11) BUN 10 (7-18) mg/dl Creatinine 0.84 (0.6-1.2) mg/dl Est Cr Clr Drug Dosing 45.7 ml/min Est GFR ( Amer) 77.2 Est GFR (Non-Af Amer) 66.6 BUN/Creatinine Ratio 12.2 (10-20) Glucose 92 (70-99) mg/dl POC Glucose (70-99) Calcium 8.2 L (8.5-10.1) mg/dl Phosphorus (2.5-4.9) mg/dl Magnesium (1.8-2.4) mg/dl 12/08/18 12/08/18 12/08/18 Range/Units 21:22 21:18 21:17 WBC (4.8-10.8) K/uL RBC (4.2-5.4) M/uL Hgb (12.0-16.0) g/dL Hct (37-47) % MCV (80-100) fL MCH (25-34) pg MCHC (32-36) g/dL RDW Std Deviation (36.4-46.3) fL RDW Coeff of Lucas (11.5-14.5) % Plt Count (130-400) K/uL MPV (7.4-10.4) fL Immature Gran % (Auto) % Neut % (Auto) % Lymph % (Auto) % [place] % (Auto) % Eos % (Auto) % Baso % (Auto) % Immature Gran # (Auto) (0.00-0.02) K/uL Neut # (Auto) (1.4-6.5) K/uL Lymph # (Auto) (1.2-3.4) K/uL [place] # (Auto) (0.11-0.59) K/uL Eos # (Auto) (0-0.5) K/uL Baso # (Auto) (0-0.2) K/uL PT (9.0-12.0) Seconds INR (0.9-1.1) Sodium (136-145) mmol/L Potassium (3.5-5.1) mmol/L Chloride (98-107) mmol/L Carbon Dioxide (21-32) mmol/L Anion Gap (3-11) BUN (7-18) mg/dl Creatinine (0.6-1.2) mg/dl Est Cr Clr Drug Dosing ml/min Est GFR ( Amer) Est GFR (Non-Af Amer) BUN/Creatinine Ratio (10-20) Glucose 102 H (70-99) mg/dl POC Glucose 53 L* 107 H (70-99) Calcium (8.5-10.1) mg/dl Phosphorus (2.5-4.9) mg/dl Magnesium (1.8-2.4) mg/dl 12/08/18 12/08/18 12/08/18 Range/Units 17:15 15:59 15:18 WBC (4.8-10.8) K/uL RBC (4.2-5.4) M/uL Hgb (12.0-16.0) g/dL Hct (37-47) % MCV (80-100) fL MCH (25-34) pg MCHC (32-36) g/dL RDW Std Deviation (36.4-46.3) fL RDW Coeff of Lucas (11.5-14.5) % Plt Count (130-400) K/uL MPV (7.4-10.4) fL Immature Gran % (Auto) % Neut % (Auto) % Lymph % (Auto) % [place] % (Auto) % Eos % (Auto) % Baso % (Auto) % Immature Gran # (Auto) (0.00-0.02) K/uL Neut # (Auto) (1.4-6.5) K/uL Lymph # (Auto) (1.2-3.4) K/uL [place] # (Auto) (0.11-0.59) K/uL Eos # (Auto) (0-0.5) K/uL Baso # (Auto) (0-0.2) K/uL PT (9.0-12.0) Seconds INR (0.9-1.1) Sodium (136-145) mmol/L Potassium (3.5-5.1) mmol/L Chloride (98-107) mmol/L Carbon Dioxide (21-32) mmol/L Anion Gap (3-11) BUN (7-18) mg/dl Creatinine (0.6-1.2) mg/dl Est Cr Clr Drug Dosing ml/min Est GFR ( Amer) Est GFR (Non-Af Amer) BUN/Creatinine Ratio (10-20) Glucose (70-99) mg/dl POC Glucose 91 154 H 110 H (70-99) Calcium (8.5-10.1) mg/dl Phosphorus (2.5-4.9) mg/dl Magnesium (1.8-2.4) mg/dl 12/08/18 12/08/18 12/08/18 Range/Units 15:09 15:08 15:08 WBC 4.48 L (4.8-10.8) K/uL RBC 4.34 (4.2-5.4) M/uL Hgb 11.6 L (12.0-16.0) g/dL Hct 36.6 L (37-47) % MCV 84.3 (80-100) fL MCH 26.7 (25-34) pg MCHC 31.7 L (32-36) g/dL RDW Std Deviation 59.3 H (36.4-46.3) fL RDW Coeff of Lucas 19.3 H (11.5-14.5) % Plt Count 168 (130-400) K/uL MPV 9.5 (7.4-10.4) fL Immature Gran % (Auto) 0.2 % Neut % (Auto) 67.3 % Lymph % (Auto) 25.4 % [place] % (Auto) 5.8 % Eos % (Auto) 1.1 % Baso % (Auto) 0.2 % Immature Gran # (Auto) 0.01 (0.00-0.02) K/uL Neut # (Auto) 3.01 (1.4-6.5) K/uL Lymph # (Auto) 1.14 L (1.2-3.4) K/uL [place] # (Auto) 0.26 (0.11-0.59) K/uL Eos # (Auto) 0.05 (0-0.5) K/uL Baso # (Auto) 0.01 (0-0.2) K/uL PT (9.0-12.0) Seconds INR (0.9-1.1) Sodium 136 (136-145) mmol/L Potassium 3.6 (3.5-5.1) mmol/L Chloride 103 (98-107) mmol/L Carbon Dioxide 27 (21-32) mmol/L Anion Gap 6.0 (3-11) BUN 11 (7-18) mg/dl Creatinine 0.82 (0.6-1.2) mg/dl Est Cr Clr Drug Dosing 46.8 ml/min Est GFR ( Amer) 79.4 Est GFR (Non-Af Amer) 68.5 BUN/Creatinine Ratio 13.4 (10-20) Glucose 201 H (70-99) mg/dl POC Glucose 85 (70-99) Calcium 8.5 (8.5-10.1) mg/dl Phosphorus 3.8 (2.5-4.9) mg/dl Magnesium 1.9 (1.8-2.4) mg/dl 12/08/18 12/08/18 12/08/18 Range/Units 15:07 14:52 14:42 WBC (4.8-10.8) K/uL RBC (4.2-5.4) M/uL Hgb (12.0-16.0) g/dL Hct (37-47) % MCV (80-100) fL MCH (25-34) pg MCHC (32-36) g/dL RDW Std Deviation (36.4-46.3) fL RDW Coeff of Lucas (11.5-14.5) % Plt Count (130-400) K/uL MPV (7.4-10.4) fL Immature Gran % (Auto) % Neut % (Auto) % Lymph % (Auto) % [place] % (Auto) % Eos % (Auto) % Baso % (Auto) % Immature Gran # (Auto) (0.00-0.02) K/uL Neut # (Auto) (1.4-6.5) K/uL Lymph # (Auto) (1.2-3.4) K/uL [place] # (Auto) (0.11-0.59) K/uL Eos # (Auto) (0-0.5) K/uL Baso # (Auto) (0-0.2) K/uL PT (9.0-12.0) Seconds INR (0.9-1.1) Sodium (136-145) mmol/L Potassium (3.5-5.1) mmol/L Chloride (98-107) mmol/L Carbon Dioxide (21-32) mmol/L Anion Gap (3-11) BUN (7-18) mg/dl Creatinine (0.6-1.2) mg/dl Est Cr Clr Drug Dosing ml/min Est GFR ( Amer) Est GFR (Non-Af Amer) BUN/Creatinine Ratio (10-20) Glucose (70-99) mg/dl POC Glucose 203 H 61 L* 47 L* (70-99) Calcium (8.5-10.1) mg/dl Phosphorus (2.5-4.9) mg/dl Magnesium (1.8-2.4) mg/dl 12/08/18 12/08/18 12/08/18 Range/Units 14:23 14:05 13:43 WBC (4.8-10.8) K/uL RBC (4.2-5.4) M/uL Hgb (12.0-16.0) g/dL Hct (37-47) % MCV (80-100) fL MCH (25-34) pg MCHC (32-36) g/dL RDW Std Deviation (36.4-46.3) fL RDW Coeff of Lucas (11.5-14.5) % Plt Count (130-400) K/uL MPV (7.4-10.4) fL Immature Gran % (Auto) % Neut % (Auto) % Lymph % (Auto) % [place] % (Auto) % Eos % (Auto) % Baso % (Auto) % Immature Gran # (Auto) (0.00-0.02) K/uL Neut # (Auto) (1.4-6.5) K/uL Lymph # (Auto) (1.2-3.4) K/uL [place] # (Auto) (0.11-0.59) K/uL Eos # (Auto) (0-0.5) K/uL Baso # (Auto) (0-0.2) K/uL PT (9.0-12.0) Seconds INR (0.9-1.1) Sodium (136-145) mmol/L Potassium (3.5-5.1) mmol/L Chloride (98-107) mmol/L Carbon Dioxide (21-32) mmol/L Anion Gap (3-11) BUN (7-18) mg/dl Creatinine (0.6-1.2) mg/dl Est Cr Clr Drug Dosing ml/min Est GFR ( Amer) Est GFR (Non-Af Amer) BUN/Creatinine Ratio (10-20) Glucose (70-99) mg/dl POC Glucose 47 L* 61 L* 30 L* (70-99) Calcium (8.5-10.1) mg/dl Phosphorus (2.5-4.9) mg/dl Magnesium (1.8-2.4) mg/dl 12/08/18 12/08/18 12/08/18 Range/Units 13:37 13:17 13:14 WBC (4.8-10.8) K/uL RBC (4.2-5.4) M/uL Hgb (12.0-16.0) g/dL Hct (37-47) % MCV (80-100) fL MCH (25-34) pg MCHC (32-36) g/dL RDW Std Deviation (36.4-46.3) fL RDW Coeff of Lucas (11.5-14.5) % Plt Count (130-400) K/uL MPV (7.4-10.4) fL Immature Gran % (Auto) % Neut % (Auto) % Lymph % (Auto) % [place] % (Auto) % Eos % (Auto) % Baso % (Auto) % Immature Gran # (Auto) (0.00-0.02) K/uL Neut # (Auto) (1.4-6.5) K/uL Lymph # (Auto) (1.2-3.4) K/uL [place] # (Auto) (0.11-0.59) K/uL Eos # (Auto) (0-0.5) K/uL Baso # (Auto) (0-0.2) K/uL PT (9.0-12.0) Seconds INR (0.9-1.1) Sodium (136-145) mmol/L Potassium (3.5-5.1) mmol/L Chloride (98-107) mmol/L Carbon Dioxide (21-32) mmol/L Anion Gap (3-11) BUN (7-18) mg/dl Creatinine (0.6-1.2) mg/dl Est Cr Clr Drug Dosing ml/min Est GFR ( Amer) Est GFR (Non-Af Amer) BUN/Creatinine Ratio (10-20) Glucose (70-99) mg/dl POC Glucose 20 L* 40 L* 33 L* (70-99) Calcium (8.5-10.1) mg/dl Phosphorus (2.5-4.9) mg/dl Magnesium (1.8-2.4) mg/dl 12/08/18 Range/Units 11:58 WBC (4.8-10.8) K/uL RBC (4.2-5.4) M/uL Hgb (12.0-16.0) g/dL Hct (37-47) % MCV (80-100) fL MCH (25-34) pg MCHC (32-36) g/dL RDW Std Deviation (36.4-46.3) fL RDW Coeff of Lucas (11.5-14.5) % Plt Count (130-400) K/uL MPV (7.4-10.4) fL Immature Gran % (Auto) % Neut % (Auto) % Lymph % (Auto) % [place] % (Auto) % Eos % (Auto) % Baso % (Auto) % Immature Gran # (Auto) (0.00-0.02) K/uL Neut # (Auto) (1.4-6.5) K/uL Lymph # (Auto) (1.2-3.4) K/uL [place] # (Auto) (0.11-0.59) K/uL Eos # (Auto) (0-0.5) K/uL Baso # (Auto) (0-0.2) K/uL PT (9.0-12.0) Seconds INR (0.9-1.1) Sodium (136-145) mmol/L Potassium (3.5-5.1) mmol/L Chloride (98-107) mmol/L Carbon Dioxide (21-32) mmol/L Anion Gap (3-11) BUN (7-18) mg/dl Creatinine (0.6-1.2) mg/dl Est Cr Clr Drug Dosing ml/min Est GFR ( Amer) Est GFR (Non-Af Amer) BUN/Creatinine Ratio (10-20) Glucose (70-99) mg/dl POC Glucose 83 (70-99) Calcium (8.5-10.1) mg/dl Phosphorus (2.5-4.9) mg/dl Magnesium (1.8-2.4) mg/dl (1) Diabetic foot ulcer Diabetic foot ulcer location: heel Diabetes mellitus type: type 2 Laterality: left Non-pressure ulcer stage: limited to breakdown of skin Qualified Code(s): E11.621 - Type 2 diabetes mellitus with foot ulcer; L97.421 - Non-pressure chronic ulcer of left heel and midfoot limited to breakdown of skin
--- NOTE | 2018-12-09 14:00 | Infectious Disease Progress Nt ---
Date of Service December 09, 2018 Assessment & Plan (1) Non-pressure chronic ulcer of other part of left foot limited to breakdown of skin: continue ancef for now, all previous cultures with skin lyudmila only. await OR culture results. Subjective OR cultures pending, no wbc, rare gpc on gram stain. off of abx. afebrile. wbc 4.9. afebrile overnight. Physical Exam Vital Signs (Past 24 Hours): Last Vital Signs Temp 36.6 C 12/09/18 10:41 Pulse 80 12/09/18 10:41 Resp 16 12/09/18 10:41 BP 98/66 L 12/09/18 10:41 Pulse Ox 95 12/09/18 10:41 Results & Data Laboratory Results Microbiology 12/08/18 Unknown Toe,Left Fifth Gram Stain - Final
--- NOTE | 2018-12-09 16:03 | Pharmacy Report ---
Pharmacy Glycemic Short Note 2 - Date of Service December 09, 2018 - Glycemic Short BSG Results (Last 24 hours): 12/08/18 12/08/18 12/08/18 15:59 17:15 21:17 Glucose POC Glucose 154 H 91 107 H 12/08/18 12/08/18 12/09/18 21:18 21:22 06:16 Glucose 102 H 92 POC Glucose 53 L* 12/09/18 12:31 Glucose POC Glucose 118 H OUTPATIENT ANTIDIABETIC REGIMEN: * Metformin 500 mg PO BID * 5.1% (11/23/18) ASSESSMENT: * Dionne is a 78 yr old T2DM female admitted for toe resection * Yesterday POC BSGs were mostly below goal. It was determined that POC results have been unreliable due to poor circulation. Last evening, venous glucose draws and draws from arm were taken to verify the accuracy of POC. Results taken from arm were very similar to lab draws. * Fasting BSG of 92 mg/dL today (venous draw) is at goal. Patient has required no insulin thus far this admission. * Patient is tolerating an oral diet, Scr is at baseline, and she will likely be discharged tomorrow, therefore I will resume home dose of metformin. PLAN FOR INPATIENT GLYCEMIC CONTROL: * Resume metformin 500 mg PO BID thank you.
[2018-12-09] MEDS: METFORMIN HCL 500 MG TAB PO SCH (17:47)
[2018-12-09] MEDS: WARFARIN SOD 2.5 MG TAB PO SCH (17:48)
[2018-12-09] MEDS: dilTIAZem HCL 240 MG CAPCR PO SCH (20:43)
[2018-12-09] MEDS: FUROSEMIDE 20 MG TAB PO SCH (20:43)
[2018-12-09] MEDS: METOPROLOL SUCC 50MG EXT REL TAB PO SCH (20:44)
--- NOTE | 2018-12-09 21:44 | Hospitalist Progress Note ---
Date of Service December 09, 2018 Assessment & Plan (1) Diabetic foot ulcer: s/p left foot 5th ray resection management per orthopedics (2) DM type 2 (diabetes mellitus, type 2): hemoglobin a1c is 5.1% she has lost a considerable amount of weight in the last year - thus, her DM has resolved she is not even a prediabetic would NOT continue metformin at discharge with respect to "hypoglycemia" episodes yesterday --- this was ruled out venipuncture serum glucose levels were much higher than FSBS I am uncertain why the fingersticks were reading low blood glucose levels today and fingersticks are normal would d/c all fingersticks (3) Afib: continue diltiazem and metoprolol xl coumadin resumed INR in am (4) Hypothyroid: continue synthroid (5) GERD (gastroesophageal reflux disease): continue PPI (6) DVT prophylaxis: coumadin (7) Chronic kidney disease, stage 3a: creatinine is stable BMP in am Subjective patient feeling well during my visit denies any complaint except for mild foot pain denies fever/chills Constitutional: + weight loss (lost 40 pounds in the last year - unintentional) Respiratory: no dyspnea Cardiovascular: no chest pain Gastrointestinal: no abdominal pain, no nausea and no vomiting Physical Exam Vital Signs (Past 24 Hours): Last Vital Signs Temp 36.5 C 12/09/18 15:30 Pulse 85 12/09/18 20:42 Resp 17 12/09/18 15:30 BP 127/90 12/09/18 20:42 Pulse Ox 95 12/09/18 10:41 Constitutional: well developed, well nourished and average body habitus; no acute distress and no altered mental status ENMT: external ear and nose normal, oropharynx normal Respiratory: normal respiratory effort, lungs clear to auscultation Cardiovascular: Rate/Rhythm: regular rate; + abnormal rhythm (irregular ) Heart Sounds: normal S1 and normal S2 Vessels: posterior tibial pulses present and dorsalis pedis pulses present; no JVD Gastrointestinal (Abdomen): normal bowel sounds, soft, nontender, no hepatosplenomegaly Skin: left foot wrapped in dressing; cap refill of exposed toes < sec Psychiatric: A+Ox3, euthymic affect Results & Data Laboratory Results Laboratory Results - last 24 hr 12/08/18 12/09/18 12/09/18 21:18 06:16 06:16 WBC 4.91 RBC 4.06 L Hgb 10.8 L Hct 34.1 L MCV 84.0 MCH 26.6 MCHC 31.7 L RDW Std Deviation 59.1 H RDW Coeff of Lucas 19.2 H Plt Count 174 MPV 9.4 Immature Gran % (Auto) 0.2 Neut % (Auto) 52.1 Lymph % (Auto) 36.9 [place] % (Auto) 8.4 Eos % (Auto) 2.2 Baso % (Auto) 0.2 Immature Gran # (Auto) 0.01 Neut # (Auto) 2.56 Lymph # (Auto) 1.81 [place] # (Auto) 0.41 Eos # (Auto) 0.11 Baso # (Auto) 0.01 PT 12.4 H INR 1.2 H Sodium Potassium Chloride Carbon Dioxide Anion Gap BUN Creatinine Est Cr Clr Drug Dosing Est GFR ( Amer) Est GFR (Non-Af Amer) BUN/Creatinine Ratio Glucose 102 H POC Glucose Calcium 12/09/18 12/09/18 06:16 12:31 WBC RBC Hgb Hct MCV MCH MCHC RDW Std Deviation RDW Coeff of Lucas Plt Count MPV Immature Gran % (Auto) Neut % (Auto) Lymph % (Auto) [place] % (Auto) Eos % (Auto) Baso % (Auto) Immature Gran # (Auto) Neut # (Auto) Lymph # (Auto) [place] # (Auto) Eos # (Auto) Baso # (Auto) PT INR Sodium 137 Potassium 4.1 Chloride 107 Carbon Dioxide 25 Anion Gap 5.0 BUN 10 Creatinine 0.84 Est Cr Clr Drug Dosing 45.7 Est GFR ( Amer) 77.2 Est GFR (Non-Af Amer) 66.6 BUN/Creatinine Ratio 12.2 Glucose 92 POC Glucose 118 H Calcium 8.2 L (1) Diabetic foot ulcer Diabetic foot ulcer location: heel Diabetes mellitus type: type 2 Laterality: left Non-pressure ulcer stage: limited to breakdown of skin Qualified Code(s): E11.621 - Type 2 diabetes mellitus with foot ulcer; L97.421 - Non-pressure chronic ulcer of left heel and midfoot limited to breakdown of skin (2) DM type 2 (diabetes mellitus, type 2) Diabetes mellitus alf insulin use: without termite renewal inspector use Diabetes mellitus complication status: without complication Qualified Code(s): E11.9 - Type 2 diabetes mellitus without complications (3) Afib Atrial fibrillation type: chronic Qualified Code(s): I48.2 - Chronic atrial fibrillation (4) Hypothyroid Hypothyroidism type: acquired Qualified Code(s): E03.9 - Hypothyroidism, unspecified (5) GERD (gastroesophageal reflux disease) Esophagitis presence: esophagitis presence not specified Qualified Code(s): K21.9 - Gastro-esophageal reflux disease without esophagitis
[2018-12-10] MEDS: LEVOTHYROXINE SODIUM 88 MCG TABLET PO SCH (05:34)
[2018-12-10 06:29] LABS: INR 1.4 (0.9-1.1); Prothrombin Time 14.1 Seconds (9.0-12.0)
[2018-12-10] MEDS: CEFAZOLIN 1000MG 1,000 MG/7.5 ML SYR IV SCH (07:27)
[2018-12-10] MEDS: METFORMIN HCL 500 MG TAB PO SCH (07:27)
[2018-12-10] MEDS: DOCUSATE SODIUM 100 MG CAP PO SCH (08:34)
[2018-12-10] MEDS: MULTIVITAMIN TAB PO SCH (08:34)
[2018-12-10] MEDS: PANTOprazole 40 MG TAB PO SCH (08:34)
--- NOTE | 2018-12-10 10:26 | Pharmacy Report ---
Pharmacy Glycemic Sign Off Nt - Date of Service December 10, 2018 - Assessment & Plan ASSESSMENT: * Pharmacy was consulted by Geni Spangler on 12/08/18 for glycemic control and to write orders per [facility] inpatient glycemic control protocol. * Patient has not required insulin in the last 48 hrs to maintain glycemic control * Metformin was resumed, at home dosage, yesterday * Do not anticipate further changes in patient status that would quickly deteriorate glycemic control * Provider has d/c'd BSG checks PLAN FOR INPATIENT GLYCEMIC CONTROL: No changes needed to current regimen. * Continue metformin 500mg PO BID * Pharmacy is signing off of glycemic consult and will no longer be making adjustments to inpatient regimen. Please feel free to re-consult if needed. Thank you.
--- NOTE | 2018-12-10 11:36 | Orthopedic Progress Note ---
Date of Service December 10, 2018 Assessment & Plan (1) Diabetic foot ulcer: POD 2 - S/P left 5th ray resection Doing well, may be out of bed weight bearing as tolerated left foot on heel and with post op shoe on left foot Ice to left foot PRN. Encouraged elevation of her left foot above heart to relieve pain/swelling most of the time Keep shoe on left foot at all times Heel Precautions/pressure sore precautions PT/OT to start Today Medicine,ID and Glycemic control consult-Appreciated assistance Coumadin resumed, follow PT/INR daily during inpatient stay Continue diabetic diet - Tolerating well Dr. Hernandez present for today's visit. Case management for disposition. - Plan for discharge to home today with in-home nursing and therapy. Discussed with ID culture results recommended Doxycycline 100mg po BID x 30 days, follow up with them in 10-14 days. Subjective Patient is sitting up in her chair at bedside. She states she did develop some pain last night when she rested her foot on the outer side. She took some Tylenol which did relieve her pain. She otherwise is doing well to go home today. She is tolerating a regular diet. She denies any chest pain or shortness of breath. Physical Exam Vital Signs (Past 24 Hours): Last Vital Signs Temp 36.9 C 12/10/18 06:58 Pulse 104 H 12/10/18 06:58 Resp 15 12/10/18 06:58 BP 107/71 12/10/18 06:58 Pulse Ox 91 12/10/18 06:58 Physical Exam: Patient was seen and evaluated by Dr. Hernandez today. Her dressings on her left foot were removed and new dressings were applied. Her incision is clean dry and intact with mild dried bloody drainage. There is no active bleeding. Sutures are retained. Skin edges are approximated. Mild edema of her left foot. She is able to wiggle her toes with good capillary refill. New dressings were applied as well as her postop shoe. Results & Data Laboratory Results 12/10/18 12/09/18 Range/Units 05:47 12:31 PT 14.1 H (9.0-12.0) Seconds INR 1.4 H (0.9-1.1) POC Glucose 118 H (70-99) Microbiology 12/08/18 Unknown Gram Stain - Final Toe,Left Fifth Aerobic and Anaerobic Culture - Preliminary Corynebacterium species (1) Diabetic foot ulcer Diabetic foot ulcer location: heel Diabetes mellitus type: type 2 Laterality: left Non-pressure ulcer stage: limited to breakdown of skin Qualified Code(s): E11.621 - Type 2 diabetes mellitus with foot ulcer; L97.421 - Non-pressure chronic ulcer of left heel and midfoot limited to breakdown of skin
--- NOTE | 2018-12-10 12:48 | Hospitalist Progress Note ---
Date of Service December 10, 2018 Assessment & Plan (1) Diabetic foot ulcer: s/p left foot 5th ray resection management per orthopedics antibiotics per ID & ortho (2) DM type 2 (diabetes mellitus, type 2): hemoglobin a1c is 5.1% she has lost a considerable amount of weight in the last year - thus, her DM has resolved she is not even a prediabetic would NOT continue metformin at discharge I wrote this recommendation down in the d/c instructions also advised periodic fingersticks at home just to keep an eye on things but she doesn't have to do this daily (3) Afib: continue diltiazem and metoprolol xl coumadin resumed INR 1.4 today recommended repeat INR in 2-3 days as outpatient (4) Hypothyroid: continue synthroid (5) GERD (gastroesophageal reflux disease): continue PPI (6) DVT prophylaxis: coumadin (7) Chronic kidney disease, stage 3a: creatinine stable while hospitalized I also discussed a bowel regimen with patient f/u with PCP within 1-2 weeks to discuss weight loss issue ok from medical standpoint to d/c home Subjective no new issues overnight feeling good anticipates d/c to home today we discussed f/u with PCP to obtain testing in light of significant weight loss no bowel movement but passing flatus Constitutional: no fever, no chills and no anorexia Respiratory: no cough and no dyspnea Cardiovascular: no chest pain Gastrointestinal: no abdominal pain, no nausea and no vomiting Physical Exam Vital Signs (Past 24 Hours): Last Vital Signs Temp 36.9 C 12/10/18 11:57 Pulse 83 12/10/18 11:57 Resp 15 12/10/18 11:57 BP 106/72 12/10/18 11:57 Pulse Ox 91 12/10/18 11:57 Constitutional: well developed, well nourished and average body habitus; no acute distress and no altered mental status ENMT: external ear and nose normal, oropharynx normal Respiratory: normal respiratory effort, lungs clear to auscultation Cardiovascular: Rate/Rhythm: regular rate; + abnormal rhythm (irregular ) Heart Sounds: normal S1 and normal S2 Vessels: posterior tibial pulses present and dorsalis pedis pulses present; no JVD Gastrointestinal (Abdomen): normal bowel sounds, soft, nontender, no hepatosplenomegaly Skin: left foot wrapped in dressing; no bleeding; cap refill < 2 sec Psychiatric: A+Ox3, euthymic affect Results & Data Laboratory Results Laboratory Results - last 24 hr 12/10/18 05:47 PT 14.1 H INR 1.4 H (1) Diabetic foot ulcer Diabetic foot ulcer location: heel Diabetes mellitus type: type 2 Laterality: left Non-pressure ulcer stage: limited to breakdown of skin Qualified Code(s): E11.621 - Type 2 diabetes mellitus with foot ulcer; L97.421 - Non-pressure chronic ulcer of left heel and midfoot limited to breakdown of skin (2) DM type 2 (diabetes mellitus, type 2) Diabetes mellitus oysterman insulin use: without oysterman use Diabetes mellitus complication status: without complication Qualified Code(s): E11.9 - Type 2 diabetes mellitus without complications (3) Afib Atrial fibrillation type: chronic Qualified Code(s): I48.2 - Chronic atrial fibrillation (4) Hypothyroid Hypothyroidism type: acquired Qualified Code(s): E03.9 - Hypothyroidism, unspecified (5) GERD (gastroesophageal reflux disease) Esophagitis presence: esophagitis presence not specified Qualified Code(s): K21.9 - Gastro-esophageal reflux disease without esophagitis
--- NOTE | 2018-12-10 13:56 | Discharge Summary ---
Date of Service December 10, 2018 Discharge Data Consultations 12/08/18 12:54 Consult Case Management - Discharge Planning Routine Consult Hospitalist Routine Consult Infectious Diseases Routine Procedures Performed Operation Date: 12/08/18 10:00 Actual Procedures p Left Foot Partial Fifth Ray Resection(Left) - Juan Hernandez MD Hospital Course (1) Osteomyelitis: [facility] undergoing a left fifth ray resection for osteomyelitis of her metatarsal head with Dr. Juan Hernandez on December 08, 2018. She tolerated the procedure well without any intraoperative complications. Surgery was performed with general anesthesia in peripheral nerve block. She was given 1 g of IV Ancef for surgical prophylaxis, Which was continued after her surgery. This operatively she was admitted to the hospital for pain control and physical therapy, occupational therapy case m anagement and medical management. She did well out of bed with the assistance of a walker. She was allowed to weight-bear as tolerated on her left heel with the postop shoe on her left foot at all times. She was all on to weight-bear fully onto her left foot. Elevation was encouraged during her entire patient stay. She tolerated her regular diabetic diet. Her diabetes was relatively well controlled during her stay. She actually had low blood sugars. Her potassium remained normal during the impatience stay. Her Coumadin was resumed to her regular home dosage. She was also given HARLEY stockings and AV foot pumps for DVT prophylaxis. He did not develop any postoperative complications. She was safe in physical therapy and occupational therapy and ambulated throughout the halls with the assistance of a walker. Her lab work and PT/INRs were followed closely. Her intraoperative cultures grew out Corynebacterium no sensitivities to follow. Infectious disease was consult and recommended doxycycline 100 mg twice a day 30 days with outpatient follow-up. Her vital signs remained stable during her stay. On postoperative day 2 her dressings were changed on her left foot, new dressings were applied. Her pain was controlled with oral Tylenol. She was seen by case management and has in-home nursing coming to her house of routinely and this was continued. She felt safe and comfortable to go home. She was deemed safe for discharge and was discharged to her home in stable condition on December 10, 2018. All questions were answered and discharge instructions were reviewed and provided.
== END 2018-12-10 13:44 | disposition home health service (06) | DRG 617 ==
LOC: ASU 07:58 → 3E 11:51

== ENCOUNTER 2021-10-09 05:30 | Observation (INO) ==
--- NOTE | 2021-10-02 14:52 | PAT Medication Instructions ---
Medication Instructions Date of Service October 02, 2021 Home Medications diltiazem HCl 240 mg capsule,extended release 24 hr (Cartia XT) 240 mg PO QPM omeprazole 40 mg capsule,delayed release 40 mg PO DAILY digoxin 125 mcg (0.125 mg) tablet 125 mcg PO DAILY furosemide 20 mg tablet (Lasix) 40 mg PO DAILY metformin 500 mg tablet 1,000 mg PO DAILY clopidogrel 75 mg tablet (Plavix) 75 mg PO DAILY gabapentin 100 mg capsule 100 mg PO BID hydrocodone 5 mg-acetaminophen 325 mg tablet 1 tab PO DAILY PRN levothyroxine 100 mcg capsule 100 mcg PO DAILY rivaroxaban 20 mg tablet (Xarelto) 20 mg PO HS metoprolol succinate 50 mg tablet,extended release 24 hr 150 mg PO DAILY multivitamin (Daily Multi-Vitamin) 1 tab PO DAILY acetaminophen 325 mg tablet 650 mg PO Q6 PRN bisacodyl 10 mg rectal suppository (Dulcolax (bisacodyl)) 10 mg SD Q3D PRN famotidine 10 mg tablet 10 mg PO HS loperamide 2 mg tablet 2 mg PO Q4H PRN magnesium hydroxide 400 mg/5 mL oral suspension (Milk of Magnesia) 30 ml PO DAILY PRN povidone-iodine 10 % topical swab (Betadine Swabsticks) 1 applic TOPICAL DAILY sodium phosphates 19 gram-7 gram/118 mL enema (Fleet Enema) 118 ml SD UD PRN ASK your surgeon for instructions povidone-iodine 10 % topical swab (Betadine Swabsticks) 1 applic TOPICAL DAILY ASK your prescriber and surgeon clopidogrel 75 mg tablet (Plavix) 75 mg PO DAILY rivaroxaban 20 mg tablet (Xarelto) 20 mg PO HS DO NOT take the morning of surgery furosemide 20 mg tablet (Lasix) 40 mg PO DAILY metformin 500 mg tablet 1,000 mg PO DAILY multivitamin (Daily Multi-Vitamin) 1 tab PO DAILY bisacodyl 10 mg rectal suppository (Dulcolax (bisacodyl)) 10 mg SD Q3D PRN loperamide 2 mg tablet 2 mg PO Q4H PRN magnesium hydroxide 400 mg/5 mL oral suspension (Milk of Magnesia) 30 ml PO DAILY PRN sodium phosphates 19 gram-7 gram/118 mL enema (Fleet Enema) 118 ml SD UD PRN Take morning of surgery With a small sip of water, OTHERWISE NOTHING TO EAT OR DRINK AFTER MIDNIGHT: omeprazole 40 mg capsule,delayed release 40 mg PO DAILY digoxin 125 mcg (0.125 mg) tablet 125 mcg PO DAILY gabapentin 100 mg capsule 100 mg PO BID hydrocodone 5 mg-acetaminophen 325 mg tablet 1 tab PO DAILY PRN(okay to take up to 4 hours prior to surgery if needed). levothyroxine 100 mcg capsule 100 mcg PO DAILY metoprolol succinate 50 mg tablet,extended release 24 hr 150 mg PO DAILY acetaminophen 325 mg tablet 650 mg PO Q6 PRN(okay to take up to 4 hours prior to surgery if needed). Take evening before surgery diltiazem HCl 240 mg capsule,extended release 24 hr (Cartia XT) 240 mg PO QPM gabapentin 100 mg capsule 100 mg PO BID hydrocodone 5 mg-acetaminophen 325 mg tablet 1 tab PO DAILY PRN(if needed) acetaminophen 325 mg tablet 650 mg PO Q6 PRN(if needed) famotidine 10 mg tablet 10 mg PO HS Other Notes If you have any questions please call us at [phone] or [phone] or [phone] or [phone]
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
[2021-10-09] MEDS ORDERED: ceFAZolin 1000MG 1,000 MG/7.5 ML SYR IV SCH (06:00)
[2021-10-09] MEDS ORDERED: LACTATED RINGER'S 1,000 ML IV SCH (06:00)
[2021-10-09] MEDS ORDERED: EPINEPHrine INJ 1 MG/ML AMP ONE ×2 (06:18→07:07)
[2021-10-09] MEDS ORDERED: BUPIVACAINE 0.5 % 5 MG/1 ML MPF 30ML VIAL ONE ×2 (06:18→06:44)
[2021-10-09] MEDS ORDERED: LIDOCAINE 1% LOCAL 20 ML VIAL ONE (06:44)
--- NOTE | 2021-10-09 06:54 | History & Physical Bridge Note ---
Date of Service October 09, 2021 History & Physical Bridge Note I have examined the patient, reviewed the History & Physical and in the interval since the performance of the History & Physical I have noted the following changes of clinical significance: no changes noted
[2021-10-09] MEDS ORDERED: PROPOFOL IV EMULSION 10 MG/ML 20 ML VIAL IV ONE (06:56)
[2021-10-09] MEDS ORDERED: fentaNYL citrate 100 MCG/2 ML VIAL ONE (06:58)
[2021-10-09] MEDS ORDERED: ONDANSETRON INJ 2 MG/ML 2 ML VIAL ONE (07:36)
--- NOTE | 2021-10-09 08:17 | Fluoroscopy Report ---
FL toe LT 2V HISTORY: 81 years-old Female 4TH TOE AMP COMPARISON: Radiographs of the left foot 09/11/2021 TECHNIQUE: One spot fluoroscopic image of the left foot was obtained utilizing 4.3 seconds fluoroscop y time FINDINGS: Interval amputation of the fourth digit at the level of the mid diaphyseal metatarsal. Soft tissue sw elling with deep tissue air within the surgical bed. Prior dictation of the fifth digit the level of the mid metatarsal. Fracture defect involving the base of the fifth metatarsal is unchanged. Flatteni ng of the second metatarsal head. Multifocal osteoarthritis. IMPRESSION: Fluoroscopic assistance as above. ACT 112: Negative or not required by law. The above report was generated using voice recognition software. It may contain grammatical, syntax o r spelling errors. Electronically signed by: Florentino Chester M.D. 10/09/2021 8:16 AM
[2021-10-09] MEDS ORDERED: FLUMAZENIL 0.1 MG/1 ML 10 ML VIAL IV PRN (08:37)
[2021-10-09] MEDS ORDERED: LABETALOL HCL IV 5 MG/ML 20ML IV PRN (08:37)
[2021-10-09] MEDS ORDERED: PROMETHAZINE HCL 12.5 MG in SODIUM CHLORIDE 0.9% 50 ML IV PRN (08:37)
[2021-10-09] MEDS ORDERED: fentaNYL citrate 100 MCG/2 ML VIAL IV PRN (08:37)
[2021-10-09] MEDS ORDERED: ONDANSETRON INJ 2 MG/ML 2 ML VIAL IV PRN ×2 (08:37→09:59)
[2021-10-09] MEDS ORDERED: NALOXONE HCL 0.4 MG/1 ML VIAL/CARP IV PRN ×2 (08:37→09:59)
[2021-10-09] MEDS ORDERED: ePHEDrine sulfate 50 MG/ML AMP IV PRN (08:37)
[2021-10-09] MEDS ORDERED: ATROPINE SULFATE 0.1 MG/ML 10ML SYR IV PRN (08:37)
--- NOTE | 2021-10-09 08:45 | Operative Report ---
Post Operative Report Pre & Post Diagnosis Operation Date: 10/09/21 07:00 Pre-Op Diagnosis: Ischemic Necrosis, Left Fourth Toe Post-Op Diagnosis: Ischemic Necrosis, Left Fourth Toe I identified the patient and participated in the time-out.: Yes Procedure Operation Date: 10/09/21 07:00 Actual Procedures p Left Fourth Toe Amputation(Left) - Juan Hernandez MD Surgeon Juan Hernandez MD Animal Husbandry Manager Melissa Spangler no resident or fellow available Estimated Blood Loss 1 Findings Consistent with Post-Op Diagnosis Specimens Left fourth toe Anesthesia Type MAC Regional Complications none Disposition Accompanied Patient To Recovery: No Disposition: Recovery Room Indications Dionne is 81. She has peripheral vascular disease and impaired circulation of her left foot. She is also diabetic. She has developed ischemic necrosis of her left fourth toe which has well demarcated. She has been seen by vascular and has had the appropriate procedures done it is thought to affect healing. She has been seeing Dr. Reagan. The plan at this point is to remove her toe and anticipate healing. Her blood thinners have been held preoperatively. Description of Procedure Informed consent obtained. Patient identified. She identified the operative site as the left foot fourth toe. I marked with my initials. A preoperative surgical timeout was performed. A preop dose of IV antibiotics was given. She was taken to the operating room positioned supine on the OR table with a bump under the left hip. 2 no tourniquet was utilized. The leg was prescribed and then prepped and draped with Betadine in the usual sterile fashion. DVT prophylaxis with mechanical devices intraoperatively and postoperatively we will put her back on her blood thinner and get her on her feet as well as use the mechanical devices. The left fourth toe was black and hard. The ischemia extended to the base of the toe medially and plantar early but there was more healthy skin dorsally and laterally. She had been status post 1/5 toe resection in the past. There was a callus city at the tip of the second toe and a 1 x 1.5 cm area of superficial eschar over the lateral heel. Her foot was edematous 1+ with dependent rubor. There was no purulent drainage and no abscess was noted. Elevation of the foot caused skin wrinkles to appear in the rubor dissipated. I went ahead and made a incision just at the margin of the healthy and skin circumferentially around the toe. I then extended this proximally up the shaft of the third metatarsal. The extensor tendon was identified and resected proximally. Fluoroscopic guidance was utilized to identify the proximal resection point which was just distal to the fifth metatarsal resection. Subperiosteal exposure of the metatarsal was performed using blunt dissection and electrocautery. A saw was utilized to transect the bone beveling it from dorsal to plantar and lateral to medial. The bone was very soft. I was able to then use a combination of blunt and sharp dissection and remove the toe as well as the metatarsal phalangeal joint and the metatarsal shaft in several large pieces. The flexor tendon was transected at the level of the bone and allowed to retract. Any small extraneous pieces of bone or unhealthy tissue were sharply debrided. I had to debride a little bit more of the medial skin which essentially took this flush with the fourth toe. The wound was then irrigated with a liter of sterile saline followed by Betadine lavage for another liter and flushed out with sterile saline after that. Prior to the start of the procedure local anesthesia was performed using 1% lidocaine and half percent Marcaine with epinephrine for a field block along the course of the fourth metatarsal. Bleeding was well-controlled during surgery and there was some bleeding along the margins of the wound particularly distal and plantar. I went ahead and reapproximated the longitudinal dorsal incision with interrupted horizontal mattress sutures. I then took several 3-0 nylon's and reapproximated the lateral distal to the medial distal which was at the base of the fourth toe. This was loosely reapproximated to allow drainage to occur. I wanted to avoid a wound VAC if possible as I think she would have low tolerance for this and the hole opening is only about 1/2 cm in diameter. Careful handling of the soft tissues at all times. The leg was cleaned with wet and dry sponges fluffs were carefully placed between the toes and a bulky soft sterile dressing Xeroform 4 x 4's ABD soft wrap Gian wrap and postop shoe. Patient awakened from anesthesia without difficulty taken to recovery room in stable condition. The resected toe was sent for specimen. After the amputation was performed I took a culture of the distal wound bed and sent for Gram stain aerobic and anaerobic. There were no complications and counts were correct blood loss is estimated to be 1 cc. At the conclusion the operation I spoke to patient's granddaughter informed her of my findings and discussed the postoperative plan. The patient will be admitted to the hospital overnight for observation and intravenous antibiotics. We will restart her blood thinner the morning after surgery. Medicine consult. The bone in general was soft. The toe was necrotic including the bone. I attest to the content of the Intraoperative Record and any orders documented therein. Any exceptions are noted below.
--- NOTE | 2021-10-09 08:51 | Operative Report ---
Post Operative Report Pre & Post Diagnosis Operation Date: 10/09/21 07:00 Pre-Op Diagnosis: Ischemic Necrosis, Left Fourth Toe Post-Op Diagnosis: Ischemic Necrosis, Left Fourth Toe I identified the patient and participated in the time-out.: Yes Procedure Operation Date: 10/09/21 07:00 Actual Procedures p Left Fourth Toe Amputation(Left) - Juan Hernandez MD Surgeon Juan Hernandez M.D. Application Security Consultant Melissa Spangler PA-C, no resident or fellow available Estimated Blood Loss 1 Findings Consistent with Post-Op Diagnosis necrosis left 4th toe Specimens left 4th toe Anesthesia Type MAC Regional Description of Procedure Patient was taken to the operating room, placed under general anesthesia. She was given 1 gm IV Ancef for surgical prophylaxis. Time out performed, prepped and draped in routine sterile fashion. I was present during the entire case, please see Dr. Hernandez's operative report for further detail. I assisted with positioning, tissue retraction, irrigation, debridement, dressings and closure. Please see Dr. Hernandez's operative report for further detail. I attest to the content of the Intraoperative Record and any orders documented therein. Any exceptions are noted below.
--- NOTE | 2021-10-09 09:43 | Anesthesiology Progress Note ---
Date of Service October 09, 2021 Anesthesia Post Procedure Vital Signs Vital Signs: Temp Pulse Pulse Resp BP Pulse Ox 10/09/21 09:35 70 18 139/66 97 10/09/21 09:25 36.3 C L 70 14 138/69 95 10/09/21 09:15 70 13 140/68 99 10/09/21 09:05 70 16 150/73 H 99 10/09/21 08:55 70 14 145/73 H 97 10/09/21 08:45 70 14 139/68 97 10/09/21 08:38 36.3 C L 70 13 118/65 95 10/09/21 05:49 36.8 C 76 20 122/82 96 Pain Intensity Left Foot: Pain Intensity: 2 Transfer of Care Handoff Completed per policy Notes Mental Status: alert / awake / arousable Patient Amnestic to Procedure: Yes Nausea / Vomiting: adequately controlled Pain: adequately controlled Airway Patency, RR, SpO2: stable & adequate BP & HR: stable & adequate Hydration State: stable & adequate Anesthetic Complications: no major complications apparent
[2021-10-09] MEDS ORDERED: METOCLOPRAMIDE HCL INJ 5 MG/ML 2 ML VIAL IV PRN (09:59)
[2021-10-09] MEDS ORDERED: bisacodyL 10 MG SUPP PR PRN (09:59)
[2021-10-09] MEDS ORDERED: SOD PHOSPHATE/SOD BIPHOSPHATE ENEMA 132 ML BTL PR PRN (09:59)
[2021-10-09] MEDS ORDERED: MAGNESIUM HYDROXIDE SUSP 30 ML UDC PO PRN (09:59)
[2021-10-09] MEDS ORDERED: ACETAMINOPHEN 325 MG TAB PO PRN (09:59)
[2021-10-09] MEDS ORDERED: NON-FORMULARY MEDICATION (Multivitamin [Daily Multi-Vitamin] tablet) PO SCH (09:59)
[2021-10-09] MEDS ORDERED: LOPERAMIDE HCL 2 MG CAP PO PRN (10:10)
[2021-10-09] MEDS ORDERED: AMPICILLIN/SULBACTAM SOD 1,500 MG in 0.9 % SODIUM CHLORIDE 100 ML IV ONE (10:15)
[2021-10-09 11:08] LABS: Creatinine Clr Calc Pharmacy 39.2 ml/min; Est GFR (African American) 70.4 ml/min; Est GFR (Non-African American) 60.8 ml/min
--- NOTE | 2021-10-09 11:26 | Hospitalist Consultation ---
Date of Consultation October 09, 2021 Assessment & Plan (1) Amputation of toe of left foot: s/p left fourth toe amputation due to ischemia antibiotics and IV fluids management per orthopedics on appropriate bowel regimen defer analgesia to primary service, adequate at this time with rescue agent (2) Peripheral arterial disease: will defer to orthopedic surgery regarding restarting plavix upon achieving hemostasis, could be today but may be tomorrow (3) Afib: continue digoxin, diltiazem, and metoprolol xl as prescribed recommend restarting xarelto tomorrow, 10/10, will defer to primary team when hemostasis is achieved VVI 70 pacemaker present digoxin level 1.1 (4) Chronic kidney disease, stage 3a: creatinine stable at pt's baseline (5) DM type 2 (diabetes mellitus, type 2): HgbA1c on 10/03/21 was 5.9, BGM this AM was 76 recommend holding metformin during hospitalization, defer to PCP for decision regarding continuation alert hospitalist if BGM > 180 continue gabapentin (6) Hypothyroid: continue Synthroid (7) GERD (gastroesophageal reflux disease): continue omeprazole and famotidine (8) DVT prophylaxis: SCDs in place recommend restarting xarelto tomorrow, 10/10, will defer to primary team when hemostasis is achieved Supervising Physician Co-Signing Physician Notes Patient was seen and examined independently I discussed the case with Cheryl MARTÍNEZ I reviewed pertinent past medical social family history and also the plan of care and agree with the plan of care. Patient was seen postoperatively she is pleasantly confused she mostly argued with me and wanted me to stay away from her. She has no focal complaints except that she wished to find her teeth which eventually were found. Card exam is regular with exploit S2 lungs are clear her left extremity has a boot in place capillary refill on the exposed toes were delayed Patient stable in the postoperative period continue all home medications with exception of metformin as she is got a low A1c. Monitor her glucose at this time and likely recommend to her primary care provider to consider the need for Leukos lowering medications with such a low A1c. We will follow her for typical postoperative changes hopefully have her rehabilitate back to [facility] in the near future Any exceptions will be noted below History of Present Illness Reason for Consultation: Medical management Requesting Physician: Juan Hernandez MD Attending Physician: Juan Hernandez MD History of Present Illness Patient is an 81 y/o female with PMH of PAD post angioplasty to left GIL/DPA and left fifth toe amputation, a fibb with pacemaker in place, diabetes mellitus, CKD3a, and hypothyroidism. She was admitted today 10/09 s/p left fourth toe amputation today, performed by Dr. Hernandez. Pt is confused at baseline and a generally poor historian, but is without complaints and is eager to eat breakfast. BGM prior to breakfast 76. VSS. Information was obtained from chart review. Allergies Allergy/AdvReac Type Severity Reaction Status Date / Time adhesive tape Allergy Intermediate Rash Verified 10/09/21 05:59 amoxicillin Allergy Intermediate Rash Verified 10/09/21 05:59 latex Allergy Unknown unknown, Verified 10/09/21 05:59 per [facility] record Home Medications Medication Instructions Recorded Confirmed Type diltiazem HCl 240 mg 240 mg PO QPM 07/20/18 10/09/21 History capsule,extended release 24 hr (Cartia XT) omeprazole 40 mg capsule,delayed 40 mg PO DAILY 07/20/18 10/09/21 History release digoxin 125 mcg (0.125 mg) tablet 125 mcg PO DAILY 08/12/19 10/09/21 History furosemide 20 mg tablet (Lasix) 40 mg PO DAILY tab 08/12/19 10/09/21 History metformin 500 mg tablet 1,000 mg PO DAILY 08/12/19 10/09/21 History clopidogrel 75 mg tablet (Plavix) 75 mg PO DAILY 04/04/21 10/09/21 History gabapentin 100 mg capsule 100 mg PO BID 04/04/21 10/09/21 History hydrocodone 5 mg-acetaminophen 325 1 tab PO DAILY PRN tab 04/04/21 10/09/21 History mg tablet levothyroxine 100 mcg capsule 100 mcg PO DAILY 04/04/21 10/09/21 History rivaroxaban 20 mg tablet (Xarelto) 20 mg PO HS 04/04/21 10/09/21 History metoprolol succinate 50 mg 150 mg PO DAILY 09/03/21 10/09/21 History tablet,extended release 24 hr multivitamin (Daily Multi-Vitamin) 1 tab PO DAILY 09/03/21 10/09/21 History acetaminophen 325 mg tablet 650 mg PO Q6 PRN 10/02/21 10/09/21 History bisacodyl 10 mg rectal suppository 10 mg AK Q3D PRN 10/02/21 10/09/21 History (Dulcolax (bisacodyl)) famotidine 10 mg tablet 10 mg PO HS 10/02/21 10/09/21 History loperamide 2 mg tablet 2 mg PO Q4H PRN 10/02/21 10/09/21 History magnesium hydroxide 400 mg/5 mL 30 ml PO DAILY PRN 10/02/21 10/09/21 History oral suspension (Milk of Magnesia) povidone-iodine 10 % topical swab 1 applic TOPICAL DAILY 10/02/21 10/09/21 History (Betadine Swabsticks) sodium phosphates 19 gram-7 118 ml AK UD PRN 10/02/21 10/09/21 History gram/118 mL enema (Fleet Enema) Patient History Medical History Adult failure to thrive Atrial fibrillation 12/28/2017 DX'D. On Xarelto Pacemaker placed 2017 Cardiac pacemaker in situ Chronic kidney disease, stage 3 Diabetes mellitus On Metformin Diabetic neuropathy GERD (gastroesophageal reflux disease) Hyperlipemia Hypertension Hypothyroid Iron deficiency anemia Mitral valve disorder Moderate mitral insufficiency and mild mitral stenosis per 12/2017 echo. 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 S/P cataract extraction and insertion of intraocular lens R/L S/P left knee arthroscopy Family History Son Family history of diabetes mellitus Social History Smoking Status: Unknown if ever smoked Preferred Language: Spanish Communication Ability: Effective Visual Impairment: Limited Hearing Ability: Normal Supervisor Park Workers Required: No Beliefs That Will Affect Care: None marital status: Current Living Situation: Other Current Living Situation Comment: [facility] current occupational status: retired Other Information That Helps Us Care for You: No other: HAS A WALKER AND CANE THAT SHE DOESN'T USE OFTEN during the past year weight has: remained stable Assistive Devices: Walker Review of Systems Review of Systems: Unobtainable due to cognitive status Physical Exam Constitutional: WD/WN, vitals as above Eyes: PERRL, conjunctivae normal, anicteric sclerae ENMT: external ear and nose normal, oropharynx normal Neck: trachea midline, no thyromegaly normal visual inspection Respiratory: normal respiratory effort, lungs clear to auscultation Cardiovascular: RRR, no murmur, no edema Gastrointestinal (Abdomen): normal bowel sounds, soft, nontender, no hepatosplenomegaly Inspection/Auscultation: abdomen normal to inspection Musculoskeletal: Head/Neck/Chest: normocephalic and head atraumatic Extremities: + amputation noted (L fifth toe, L fourth toe) Left foot wrapped in SANDY wrap, in boot s/p fourth toe amputation Skin: no rashes, warm and dry Neurologic: normal touch/pain/proprioception and moves all extremities Psychiatric: Orientation: alert, oriented to person and cooperative consistent with pt's baseline Results & Data Results & Data ([facility]) Vital Signs (Past 12 Hours) Vital Signs Temp Pulse Pulse Pulse Resp BP BP 10/09/21 10:52 69 16 118/69 10/09/21 10:18 70 16 133/78 10/09/21 09:50 36.5 C 70 16 128/76 10/09/21 09:35 70 18 139/66 10/09/21 09:25 36.3 C L 70 14 138/69 10/09/21 09:15 70 13 140/68 10/09/21 09:05 70 16 150/73 H 10/09/21 08:55 70 14 145/73 H 10/09/21 08:45 70 14 139/68 10/09/21 08:38 36.3 C L 70 13 118/65 10/09/21 05:49 36.8 C 76 20 122/82 Pulse Ox 10/09/21 10:52 100 10/09/21 10:18 99 10/09/21 09:50 99 10/09/21 09:35 97 10/09/21 09:25 95 10/09/21 09:15 99 10/09/21 09:05 99 10/09/21 08:55 97 10/09/21 08:45 97 10/09/21 08:38 95 10/09/21 05:49 96 Laboratory Results Lab Results 10/09/21 10/09/21 10/09/21 Range/Units 06:01 08:38 10:25 Creatinine 0.89 (0.6-1.2) mg/dl Est Cr Clr Drug Dosing 39.2 ml/min Est GFR ( Amer) 70.4 ml/min Est GFR (Non-Af Amer) 60.8 ml/min POC Glucose 113 H 93 (70-99) mg/dl Digoxin (0.8-2.0) ng/ml SARS-CoV-2, RNA, NAAT (NEGATIVE) 10/09/21 10/09/21 10/09/21 Range/Units 10:25 10:47 Unknown Creatinine (0.6-1.2) mg/dl Est Cr Clr Drug Dosing ml/min Est GFR ( Amer) ml/min Est GFR (Non-Af Amer) ml/min POC Glucose 76 (70-99) mg/dl Digoxin 1.1 (0.8-2.0) ng/ml SARS-CoV-2, RNA, NAAT NEGATIVE (NEGATIVE) Abnormal lab results 10/09/21 Range/Units 06:01 POC Glucose 113 H (70-99) mg/dl Diagnostic Findings Toe X-Ray 10/09/21 07:00 FL toe LT 2V HISTORY: 81 years-old Female 4TH TOE AMP COMPARISON: Radiographs of the left foot 09/11/2021 TECHNIQUE: One spot fluoroscopic image of the left foot was obtained utilizing 4.3 seconds fluoroscopy time FINDINGS: Interval amputation of the fourth digit at the level of the mid diaphyseal metatarsal. Soft tissue swelling with deep tissue air within the surgical bed. Prior dictation of the fifth digit the level of the mid metatarsal. Fracture defect involving the base of the fifth metatarsal is unchanged. Flattening of the second metatarsal head. Multifocal osteoarthritis. IMPRESSION: Fluoroscopic assistance as above. ACT 112: Negative or not required by law. The above report was generated using voice recognition software. It may contain grammatical, syntax or spelling errors. Electronically signed by: Florentino Chester M.D. 10/09/2021 8:16 AM PG Care Time/CCT Total # of Minutes Spent Total Time Spent with Patient: Total time spent is greater than 50% in coordination of care (as documented) at patient's floor/unit and/or counseling patient: Coding Level of Care Code 47742 Inpt Consult Level 3 Diagnoses Peripheral arterial disease I73.9 GERD (gastroesophageal reflux disease) K21.9 Esophagitis presence: esophagitis presence not specified Hypothyroid E03.9 Hypothyroidism type: acquired DVT prophylaxis Z29.9 DM type 2 (diabetes mellitus, type 2) E11.9 Diabetes mellitus complication status: without complication Diabetes mellitus alf insulin use: without termite treater helper use Afib I48.21 Atrial fibrillation type: permanent Chronic kidney disease, stage 3a N18.3 Amputation of toe of left foot S98.132A (1) DM type 2 (diabetes mellitus, type 2) Diabetes mellitus complication status: without complication Diabetes mellitus alf insulin use: without alf use Qualified Code(s): E11.9 - Type 2 diabetes mellitus without complications (2) Afib Atrial fibrillation type: permanent Qualified Code(s): I48.21 - Permanent atrial fibrillation (3) Hypothyroid Hypothyroidism type: acquired Qualified Code(s): E03.9 - Hypothyroidism, unspecified (4) GERD (gastroesophageal reflux disease) Esophagitis presence: esophagitis presence not specified Qualified Code(s): K21.9 - Gastro-esophageal reflux disease without esophagitis
[2021-10-09] MEDS ORDERED: metFORMIN HCL 500 MG TAB PO SCH (11:30)
[2021-10-09] MEDS: SODIUM CHLORIDE 0.9% 1000ML 1,000 ML IV SCH ×2 (11:30→20:59)
[2021-10-09] MEDS: PANTOprazole 40 MG TAB PO SCH (11:33)
[2021-10-09] MEDS: MULTIVITAMIN TAB PO SCH (11:33)
[2021-10-09] MEDS: METOPROLOL SUCC 50MG EXT REL TAB PO SCH (11:33)
[2021-10-09] MEDS: LEVOTHYROXINE SODIUM 100 MCG TABLET PO SCH (11:33)
[2021-10-09] MEDS: DOCUSATE SODIUM 100 MG CAP PO SCH ×2 (11:33→20:59)
[2021-10-09] MEDS: FUROSEMIDE 40 MG TAB PO SCH (11:34)
[2021-10-09] MEDS: GABAPENTIN 100 MG CAP PO SCH ×2 (11:34→20:59)
[2021-10-09] MEDS: DIGOXIN 0.125 MG TAB PO SCH (11:51)
[2021-10-09] MEDS: HYDROCODONE/ACETAMOPHEN 5/325MG TAB PO PRN (13:51)
[2021-10-09] MEDS: AMPICILLIN/SULBACTAM SOD 1,500 MG in 0.9 % SODIUM CHLORIDE 100 ML IV SCH ×2 (17:41→22:43)
[2021-10-09] MEDS: traMADol HCL 50 MG TABLET PO PRN (19:40)
[2021-10-09] MEDS ORDERED: SENNA 8.6 MG TAB PO SCH (21:00)
[2021-10-09] MEDS ORDERED: FAMOTIDINE 10 MG TABLET PO SCH (21:00)
[2021-10-09] MEDS ORDERED: dilTIAZem HCL 240 MG CAPCR PO SCH (21:00)
[2021-10-10] MEDS: HYDROCODONE/ACETAMOPHEN 5/325MG TAB PO PRN (04:17)
[2021-10-10] MEDS: AMPICILLIN/SULBACTAM SOD 1,500 MG in 0.9 % SODIUM CHLORIDE 100 ML IV SCH ×2 (04:32→11:02)
[2021-10-10] MEDS: LEVOTHYROXINE SODIUM 100 MCG TABLET PO SCH (05:30)
[2021-10-10 05:45] LABS: Hematocrit (blood only) 36.9 % (37-47); Hemoglobin 12.7 g/dL (12.0-16.0); Mean Corpuscular Hgb Conc 34.4 g/dL (32-36); Mean Corpuscular Volume 98.9 fL (80-100); Mean Platelet Volume 10.5 fL (7.4-10.4); Platelet Count 169 K/uL (130-400); RDW Standard Deviation 53.7 fL (36.4-46.3); Red Blood Count 3.73 M/uL (4.2-5.4); White Blood Count 5.98 K/uL (4.8-10.8)
[2021-10-10 06:06] LABS: BUN Creatinine Ratio 11.6 (10-20); Calcium 8.3 mg/dl (8.5-10.1); Creatinine Clr Calc Pharmacy 36.7 ml/min; Est GFR (African American) 65.1 ml/min; Est GFR (Non-African American) 56.2 ml/min; Potassium 3.6 mmol/L (3.5-5.1)
[2021-10-10] MEDS: GABAPENTIN 100 MG CAP PO SCH (08:36)
[2021-10-10] MEDS: traMADol HCL 50 MG TABLET PO PRN (08:36)
[2021-10-10] MEDS: PANTOprazole 40 MG TAB PO SCH (08:37)
[2021-10-10] MEDS: MULTIVITAMIN TAB PO SCH (08:37)
[2021-10-10] MEDS: DOCUSATE SODIUM 100 MG CAP PO SCH (08:37)
[2021-10-10] MEDS: DIGOXIN 0.125 MG TAB PO SCH (08:37)
[2021-10-10] MEDS ORDERED: CLOPIDOGREL BISULFATE 75 MG TAB PO SCH (09:00)
[2021-10-10] MEDS: FUROSEMIDE 40 MG TAB PO SCH (09:37)
[2021-10-10] MEDS: METOPROLOL SUCC 50MG EXT REL TAB PO SCH (09:38)
--- NOTE | 2021-10-10 10:45 | Orthopedic Progress Note ---
Date of Service October 10, 2021 Assessment & Plan (1) Amputation of toe of left foot: Plan: POD 1- s/p left 4th toe amputation due to necrosis She may be out of bed, weight bear as tolerated left heel with assistance of walker/wheelchair. Transfer from bed to chair with assistance. Post op shoe on left foot when out of bed for transfers and ambulation. Ice and elevation to aid with swelling. Keep dressings in place left foot, reinforce as needed. Continue Plavix and Xarelto today. Out of bed with PT/OT Case management for discharge arrangements. Discharge to [facility] today. Appreciate medicine assistance. Dr. Hernandez present for today's visit. Follow up on 10/15/21 as scheduled. Admission and Anticipated Discharge Date Admission Date: October 09, 2021 Subjective Patient sitting in chair, doing well. No complaints of pain left foot. States feels much better after surgery. Boot and dressings in place. Physical Exam Musculoskeletal: Left foot dressings in place left foot, mild bloody drainage thru top of dressings, reinforced today with light gauze dressing and another SANDY bandage. Able to actively move ankle up and down on command. No pain with palpation toes left foot. Tolerated full ROM left knee, no distal edema. Results & Data ([facility]) Vital Signs (Past 12 Hours) Vital Signs Temp Pulse Pulse Pulse Resp BP BP 10/10/21 08:45 36.6 C 69 17 118/60 10/10/21 08:37 71 10/10/21 07:16 90/53 L 10/10/21 07:04 37.0 C 70 16 83/54 L 10/10/21 04:12 36.7 C 69 18 115/73 Pulse Ox 10/10/21 08:45 90 10/10/21 08:37 10/10/21 07:16 10/10/21 07:04 90 10/10/21 04:12 94 Laboratory Results 10/10/21 10/10/21 10/10/21 Range/Units 08:10 05:16 05:16 WBC 5.98 (4.8-10.8) K/uL RBC 3.73 L (4.2-5.4) M/uL Hgb 12.7 (12.0-16.0) g/dL Hct 36.9 L (37-47) % MCV 98.9 (80-100) fL MCH 34.0 (25-34) pg MCHC 34.4 (32-36) g/dL RDW Std Deviation 53.7 H (36.4-46.3) fL RDW Coeff of Lucas 15.0 H (11.5-14.5) % Plt Count 169 (130-400) K/uL MPV 10.5 H (7.4-10.4) fL Sodium 140 (136-145) mmol/L Potassium 3.6 (3.5-5.1) mmol/L Chloride 105 (98-107) mmol/L Carbon Dioxide 27 (21-32) mmol/L Anion Gap 8 (3-11) BUN 11 (6-23) mg/dl Creatinine 0.95 (0.6-1.2) mg/dl Est Cr Clr Drug Dosing 36.7 ml/min Est GFR ( Amer) 65.1 ml/min Est GFR (Non-Af Amer) 56.2 ml/min BUN/Creatinine Ratio 11.6 (10-20) Glucose 95 (70-99) mg/dl POC Glucose 76 (70-99) mg/dl Calcium 8.3 L (8.5-10.1) mg/dl Nasal Screen MRSA (PCR) (Negative) Digoxin (0.8-2.0) ng/ml 10/09/21 10/09/21 10/09/21 Range/Units 20:30 16:54 12:14 WBC (4.8-10.8) K/uL RBC (4.2-5.4) M/uL Hgb (12.0-16.0) g/dL Hct (37-47) % MCV (80-100) fL MCH (25-34) pg MCHC (32-36) g/dL RDW Std Deviation (36.4-46.3) fL RDW Coeff of Lucas (11.5-14.5) % Plt Count (130-400) K/uL MPV (7.4-10.4) fL Sodium (136-145) mmol/L Potassium (3.5-5.1) mmol/L Chloride (98-107) mmol/L Carbon Dioxide (21-32) mmol/L Anion Gap (3-11) BUN (6-23) mg/dl Creatinine (0.6-1.2) mg/dl Est Cr Clr Drug Dosing ml/min Est GFR ( Amer) ml/min Est GFR (Non-Af Amer) ml/min BUN/Creatinine Ratio (10-20) Glucose (70-99) mg/dl POC Glucose 130 H 100 H 77 (70-99) mg/dl Calcium (8.5-10.1) mg/dl Nasal Screen MRSA (PCR) (Negative) Digoxin (0.8-2.0) ng/ml 10/09/21 10/09/21 10/09/21 Range/Units 11:14 10:47 10:25 WBC (4.8-10.8) K/uL RBC (4.2-5.4) M/uL Hgb (12.0-16.0) g/dL Hct (37-47) % MCV (80-100) fL MCH (25-34) pg MCHC (32-36) g/dL RDW Std Deviation (36.4-46.3) fL RDW Coeff of Lucas (11.5-14.5) % Plt Count (130-400) K/uL MPV (7.4-10.4) fL Sodium (136-145) mmol/L Potassium (3.5-5.1) mmol/L Chloride (98-107) mmol/L Carbon Dioxide (21-32) mmol/L Anion Gap (3-11) BUN (6-23) mg/dl Creatinine (0.6-1.2) mg/dl Est Cr Clr Drug Dosing ml/min Est GFR ( Amer) ml/min Est GFR (Non-Af Amer) ml/min BUN/Creatinine Ratio (10-20) Glucose (70-99) mg/dl POC Glucose 76 (70-99) mg/dl Calcium (8.5-10.1) mg/dl Nasal Screen MRSA (PCR) Negative (Negative) Digoxin 1.1 (0.8-2.0) ng/ml 10/09/21 Range/Units 10:25 WBC (4.8-10.8) K/uL RBC (4.2-5.4) M/uL Hgb (12.0-16.0) g/dL Hct (37-47) % MCV (80-100) fL MCH (25-34) pg MCHC (32-36) g/dL RDW Std Deviation (36.4-46.3) fL RDW Coeff of Lucas (11.5-14.5) % Plt Count (130-400) K/uL MPV (7.4-10.4) fL Sodium (136-145) mmol/L Potassium (3.5-5.1) mmol/L Chloride (98-107) mmol/L Carbon Dioxide (21-32) mmol/L Anion Gap (3-11) BUN (6-23) mg/dl Creatinine 0.89 (0.6-1.2) mg/dl Est Cr Clr Drug Dosing 39.2 ml/min Est GFR ( Amer) 70.4 ml/min Est GFR (Non-Af Amer) 60.8 ml/min BUN/Creatinine Ratio (10-20) Glucose (70-99) mg/dl POC Glucose (70-99) mg/dl Calcium (8.5-10.1) mg/dl Nasal Screen MRSA (PCR) (Negative) Digoxin (0.8-2.0) ng/ml
--- NOTE | 2021-10-10 10:57 | Discharge Summary ---
Date of Service October 10, 2021 Discharge Data Consultations 10/09/21 09:59 Consult Hospitalist Routine Procedures Performed Operation Date: 10/09/21 07:00 Actual Procedures p Left Fourth Toe Amputation(Left) - Juan Hernandez MD Hospital Course (1) Amputation of toe of left foot: Patient was brought into [facility] and underwent an elective left fourth toe amputation by Dr. Hernandez on October 09, 2021. This was performed in the operating room with IV sedation and local anesthetic. She tolerated the procedure well. She was given 1 g of IV Ancef for surgical prophylaxis prior to her surgery. She was then switched to IV Unasyn 1500 mg every 6 hours postoperatively for broad-spectrum coverage. Intraoperative cultures and tissue sample was sent to pathology. Not have any intraoperative complications. She was awakened and taken to the recovery room in stable condition. Postoperatively she was admitted for observation to [facility]. She was allowed out of bed, weight-bear as tolerated on her left heel with a postop shoe on when out of bed. Occupational Therapy and physical therapy consultations were placed. Hospitalist consult was placed for postoperative medical management. Or at home medications were continued except for her Plavix and Xarelto which were held for the following day. They were resumed on October 10, 2021. She tolerated her regular diet as an inpatient. Her pain was well controlled and did not require any postoperative pain medication. Postoperative day 1 her dressings on her left foot were reinforced. She was given a postop shoe postoperatively. Postop day 1 laboratory data showed normal lab function and kidney function. [facility] on October [facility], 2021 in stable condition. She was discharged with oral Augmentin for 2 weeks after surgery. Her cultures showed no growth and will be followed until finalized. She will follow-up as scheduled on October 15, 2021 with [facility] orthopedics at 1 PM. All questions were answered today.
--- NOTE | 2021-10-10 12:02 | Hospitalist Progress Note ---
Date of Service October 10, 2021 Assessment & Plan (1) Amputation of toe of left foot: Plan: s/p left fourth toe amputation due to ischemia, pod #1 on appropriate bowel regimen defer analgesia to primary service, adequate at this time with rescue agent appears no intention to continue abx as outpatient f/u with ortho as outpatient (2) Peripheral arterial disease: Plan: resume Plavix as prescribed, as orthopedics agreeable (3) Afib: Plan: continue digoxin, diltiazem, and metoprolol xl as prescribed resume Xarelto (appropriate as it has been >8 hours since surgery) VVI 70 pacemaker present digoxin level 1.1 (4) Chronic kidney disease, stage 3a: Plan: creatinine stable at pt's baseline (5) DM type 2 (diabetes mellitus, type 2): Plan: HgbA1c on 10/03/21 was 5.9, BGM this AM was 76 recommend holding metformin during hospitalization, defer to PCP for decision regarding continuation continue gabapentin (6) Hypothyroid: Plan: continue Synthroid (7) GERD (gastroesophageal reflux disease): Plan: continue omeprazole and famotidine (8) DVT prophylaxis: Plan: SCDs in place resume xarelto Plan: No additional recommendations at this time. Pt is medically stable for discharge once primary service deems appropriate. Will sign off, please feel free to reconsult if the need should arise. Thank you in allowing us to participate in this patient's care during her hospital stay. Admission and Anticipated Discharge Date Admission Date: October 09, 2021 Subjective Patient seen on rounds this morning. She is sitting up in bed eating breakfast. She is s/p left 4th toe amputation pod#1. She denies pain in her foot, chest pain, dyspnea, n/v/d, f/c, headache, or gu symptoms. Only requested some "ice cold water." No issues verbalized by RN. Review of Systems Review of Systems: CONSTITUTIONAL: Denies weight loss/gain, fever and chills, fatigue, malaise, generalized weakness. HEENT: Denies changes in vision and hearing. RESPIRATORY: Denies SOB, cough, wheezing. CV: Denies palpitations, CP, lower extremity edema, orthopnea, PND. GI: Denies abdominal pain, nausea, vomiting and diarrhea. : Denies dysuria and urinary frequency, urgency, hesitancy. MUSCULOSKELETAL: Denies myalgia and joint pain. SKIN: Denies rash and pruritus. NEUROLOGICAL: Denies headache, syncope, focal weakness, numbness, tingling. PSYCHIATRIC: Denies recent changes in mood. Denies anxiety and depression. Physical Exam Physical Exam: GENERAL: 81 yoWell-developed, well-nourished elderly WF. NAD. LUNGS: Clear to auscultation bilaterally. No accessory muscle use. No W/R/R. CARDIOVASCULAR: Regular rate and rhythm. No M/G/R. No JVD. ABDOMEN: Soft, non-tender and non-distended. No palpable masses. Bowel sounds normoactive x 4 quad. EXTREMITIES: No edema. Non-tender. Peripheral pulses +2/4. NEUROLOGIC: A&O x3. No focal neurological deficits. CN II-XII grossly intact. PSYCHIATRIC: Cooperative. Appropriate mood and affect. SKIN: Warm, dry, intact. No rashes or lesions. Results & Data Results & Data ([facility]) Vital Signs (Past 12 Hours) Vital Signs Temp Pulse Pulse Pulse Resp BP BP 10/10/21 08:45 36.6 C 69 17 118/60 10/10/21 08:37 71 10/10/21 07:16 90/53 L 10/10/21 07:04 37.0 C 70 16 83/54 L 10/10/21 04:12 36.7 C 69 18 115/73 Pulse Ox 10/10/21 08:45 90 10/10/21 08:37 10/10/21 07:16 10/10/21 07:04 90 10/10/21 04:12 94 Laboratory Results 10/10/21 05:16 10/10/21 05:16 PG Care Time/CCT Total # of Minutes Spent Total Time Spent with Patient: Total time spent is greater than 50% in coordination of care (as documented) at patient's floor/unit and/or counseling patient: Coding Level of Care Code 98476 Subseq Hosp Care Lvl 2 Diagnoses Amputation of toe of left foot S98.132A Peripheral arterial disease I73.9 Afib I48.21 Atrial fibrillation type: permanent Chronic kidney disease, stage 3a N18.3 DM type 2 (diabetes mellitus, type 2) E11.9 Diabetes mellitus ferry terminal supervisor insulin use: without ferry terminal supervisor use Diabetes mellitus complication status: without complication Hypothyroid E03.9 Hypothyroidism type: acquired GERD (gastroesophageal reflux disease) K21.9 Esophagitis presence: esophagitis presence not specified DVT prophylaxis Z29.9 (1) Afib Atrial fibrillation type: permanent Qualified Code(s): I48.21 - Permanent atrial fibrillation (2) DM type 2 (diabetes mellitus, type 2) Diabetes mellitus shelter insulin use: without ferry terminal supervisor use Diabetes mellitus complication status: without complication Qualified Code(s): E11.9 - Type 2 diabetes mellitus without complications (3) Hypothyroid Hypothyroidism type: acquired Qualified Code(s): E03.9 - Hypothyroidism, unspecified (4) GERD (gastroesophageal reflux disease) Esophagitis presence: esophagitis presence not specified Qualified Code(s): K21.9 - Gastro-esophageal reflux disease without esophagitis
[2021-10-10] MEDS ORDERED: RIVAROXABAN 15 MG TAB PO SCH (16:30)
== END 2021-10-10 14:10 ==
LOC: 3E 05:30 → ASU 05:30

== ENCOUNTER 2021-11-06 05:30 | Inpatient (IN) ==
--- NOTE | 2021-11-01 12:31 | PAT Medication Instructions ---
Medication Instructions Date of Service November 01, 2021 Home Medications diltiazem HCl 240 mg capsule,extended release 24 hr (Cartia XT) 240 mg PO QPM omeprazole 40 mg capsule,delayed release 40 mg PO DAILY digoxin 125 mcg (0.125 mg) tablet 125 mcg PO DAILY furosemide 20 mg tablet (Lasix) 40 mg PO DAILY metformin 500 mg tablet 1,000 mg PO DAILY gabapentin 100 mg capsule 100 mg PO BID hydrocodone 5 mg-acetaminophen 325 mg tablet 1 tab PO Q4H PRN rivaroxaban 20 mg tablet (Xarelto) 20 mg PO HS metoprolol succinate 50 mg tablet,extended release 24 hr 150 mg PO DAILY multivitamin (Daily Multi-Vitamin) 1 tab PO DAILY acetaminophen 325 mg tablet 650 mg PO Q6 PRN bisacodyl 10 mg rectal suppository (Dulcolax (bisacodyl)) 10 mg DC Q3D PRN famotidine 10 mg tablet 10 mg PO HS loperamide 2 mg tablet 2 mg PO Q4H PRN magnesium hydroxide 400 mg/5 mL oral suspension (Milk of Magnesia) 30 ml PO DAILY PRN povidone-iodine 10 % topical swab (Betadine Swabsticks) 1 applic TOPICAL DAILY sodium phosphates 19 gram-7 gram/118 mL enema (Fleet Enema) 118 ml DC UD PRN hydrocodone 5 mg-acetaminophen 325 mg tablet 1 tab PO BID levothyroxine 125 mcg tablet 125 mcg PO DAILY menthol 0.44 %-zinc oxide 20.6 % topical ointment (Calmoseptine) 1 applic TOPICAL TID metoprolol succinate 100 mg tablet,extended release 24 hr 100 mg PO DAILY ASK your surgeon for instructions povidone-iodine 10 % topical swab (Betadine Swabsticks) 1 applic TOPICAL DAILY ASK your prescriber and surgeon rivaroxaban 20 mg tablet (Xarelto) 20 mg PO HS STOP taking 24 hours before surgery menthol 0.44 %-zinc oxide 20.6 % topical ointment (Calmoseptine) 1 applic TOPICAL TID DO NOT take the morning of surgery furosemide 20 mg tablet (Lasix) 40 mg PO DAILY metformin 500 mg tablet 1,000 mg PO DAILY multivitamin (Daily Multi-Vitamin) 1 tab PO DAILY bisacodyl 10 mg rectal suppository (Dulcolax (bisacodyl)) 10 mg DC Q3D PRN loperamide 2 mg tablet 2 mg PO Q4H PRN magnesium hydroxide 400 mg/5 mL oral suspension (Milk of Magnesia) 30 ml PO DAILY PRN sodium phosphates 19 gram-7 gram/118 mL enema (Fleet Enema) 118 ml DC UD PRN Take morning of surgery With a small sip of water, OTHERWISE NOTHING TO EAT OR DRINK AFTER MIDNIGHT: omeprazole 40 mg capsule,delayed release 40 mg PO DAILY digoxin 125 mcg (0.125 mg) tablet 125 mcg PO DAILY gabapentin 100 mg capsule 100 mg PO BID hydrocodone 5 mg-acetaminophen 325 mg tablet 1 tab PO Q4H PRN (okay to take up to 4 hours prior to surgery if needed) metoprolol succinate 50 mg tablet,extended release 24 hr 150 mg PO DAILY acetaminophen 325 mg tablet 650 mg PO Q6 PRN (okay to take up to 4 hours prior to surgery if needed) hydrocodone 5 mg-acetaminophen 325 mg tablet 1 tab PO BID (okay to take up to 4 hours prior to surgery if needed) levothyroxine 125 mcg tablet 125 mcg PO DAILY metoprolol succinate 100 mg tablet,extended release 24 hr 100 mg PO DAILY Take evening before surgery diltiazem HCl 240 mg capsule,extended release 24 hr (Cartia XT) 240 mg PO QPM gabapentin 100 mg capsule 100 mg PO BID hydrocodone 5 mg-acetaminophen 325 mg tablet 1 tab PO Q4H PRN (if needed) acetaminophen 325 mg tablet 650 mg PO Q6 PRN (if needed) bisacodyl 10 mg rectal suppository (Dulcolax (bisacodyl)) 10 mg DC Q3D PRN (if needed) famotidine 10 mg tablet 10 mg PO HS loperamide 2 mg tablet 2 mg PO Q4H PRN (if needed) magnesium hydroxide 400 mg/5 mL oral suspension (Milk of Magnesia) 30 ml PO DAILY PRN (if needed) sodium phosphates 19 gram-7 gram/118 mL enema (Fleet Enema) 118 ml DC UD PRN (if needed) hydrocodone 5 mg-acetaminophen 325 mg tablet 1 tab PO BID Other Notes If you have any questions please call us at [phone] or [phone] or [phone] or [phone]
--- NOTE | 2021-11-01 12:54 | Anesthesiology Consultation ---
Date of Service November 01, 2021 Assessment & Plan (1) Encounter for pre-operative examination: Chart Review Chart Review: Acceptable Risk for Surgery (pending preop Covid testing results ) and Patient NOT seen in Pre Admission Testing -Pacemaker check 7 months old- per cardio office- no more recent pacer checks- discussed with Dr. Guevara- last pacer check showed good battery life- due to nature of procedure- pt can proced as scheduled - Check BSG AM DOS Per nursing assessment 11/01/21, pt resides at [facility]. No recent travel. No current Covid positive patients in facility. No known Covid positive exposures or Covid related symptoms. No known Covid infection in the past 90 days. Pt is fully vaccinated for Covid. Preop Covid testing scheduled 11/02/21= will await results Pt seen by vascular 10/22/21 at [facility]= pt seen for angiogram. "Patient with signs of chronic ischemia/gangrene involving recent left fourth toe amputation surgical site. Foot may not be salvageable. We will plan to proceed with angiogram to evaluate if any "last ditch" tibial options to improve chances of limb salvage." (See angiogram results in Testing section). Per vascular post op= "Has now had multiple endovascular interventions over the last 2 years for critical limb ischemia. No real additional revascularization options. Additional follow-up with orthopedics for consideration of amputation if no wound improvement." Patient seen by [facility] Physician 10/05/21 (prior to 10/09/21 toe amputation) = aware of upcoming left 4th toe amputation procedure- secondary to necrosis and gangrene. Had left 5th toe amputation in the past for similar reasons. "No medical contraindication to proceeding with amputation, Xarelto held for 3 days and Plavix held for 7 days prior to surgery, re-eval these post op, labs and EKG reviewed today, acceptable." Dementia severe and poor, decline expected and unavoidable. DM- continue meds. A fib- continue meds- Xarelto on hold for surgery. CKD- stable. Hypothyroid/HTN- continue meds. Seen by EP 04/04/21=Single-chamber pacemaker: Evaluation of the pacemaker was performed with interrogation of data, evaluation of battery longevity and threshold measurements. Electrical characteristics are stable, battery longevity is acceptable and no significant arrhythmias were identified. A fib- pacing most of the time- continue AC. Currently on Xarelto an seems to be doing well. Follow up in six months (Next EP follow up 12/2021) Left fourth toe amputation 10/09/21= Done under MAC Left foot partial fifth Ray Resection 12/08/18= Done under GA With Grade 1 view with Cuevas #2. ETT #7.0. History Surgery Operation Date: 11/06/21 10:20 Proposed Procedures p Left Above Knee Amputation - Juan Hernandez MD Height/Weight Height: 5 ft 2 in Weight: 60.781 kg Allergies Allergy/AdvReac Type Severity Reaction Status Date / Time adhesive tape Allergy Intermediate Rash Verified 10/22/21 10:53 amoxicillin Allergy Intermediate Rash Verified 10/22/21 10:53 latex Allergy Unknown unknown, Verified 10/22/21 10:53 per [facility] record Medications Home Medications Medication Instructions Recorded Confirmed Last Taken diltiazem HCl 240 mg 240 mg PO QPM 07/20/18 11/01/21 10/08/21 11:00 capsule,extended release 24 hr (Cartia XT) omeprazole 40 mg capsule,delayed 40 mg PO DAILY 07/20/18 11/01/21 10/07/21 20:30 release digoxin 125 mcg (0.125 mg) tablet 125 mcg PO DAILY 08/12/19 11/01/21 10/08/21 11:00 furosemide 20 mg tablet (Lasix) 40 mg PO DAILY tab 08/12/19 11/01/21 10/08/21 11:00 metformin 500 mg tablet 1,000 mg PO DAILY 08/12/19 11/01/21 10/07/21 20:30 gabapentin 100 mg capsule 100 mg PO BID 04/04/21 11/01/21 10/08/21 11:00 hydrocodone 5 mg-acetaminophen 325 1 tab PO Q4H PRN tab 04/04/21 11/01/21 10/08/21 08:30 mg tablet rivaroxaban 20 mg tablet (Xarelto) 20 mg PO HS 04/04/21 11/01/21 10/01/21 20:30 metoprolol succinate 50 mg 150 mg PO DAILY 09/03/21 11/01/21 10/07/21 20:30 tablet,extended release 24 hr multivitamin (Daily Multi-Vitamin) 1 tab PO DAILY 1211/01/21 10/08/21 20:00 acetaminophen 325 mg tablet 650 mg PO Q6 PRN 10/02/21 11/01/21 Unknown bisacodyl 10 mg rectal suppository 10 mg KY Q3D PRN 10/02/21 11/01/21 Unknown (Dulcolax (bisacodyl)) famotidine 10 mg tablet 10 mg PO HS 10/02/21 11/01/21 10/07/21 20:30 loperamide 2 mg tablet 2 mg PO Q4H PRN 10/02/21 11/01/21 Unknown magnesium hydroxide 400 mg/5 mL 30 ml PO DAILY PRN 10/02/21 11/01/21 Unknown oral suspension (Milk of Magnesia) povidone-iodine 10 % topical swab 1 applic TOPICAL DAILY 10/02/21 11/01/21 Unknown (Betadine Swabsticks) sodium phosphates 19 gram-7 118 ml KY UD PRN 10/02/21 11/01/21 Unknown gram/118 mL enema (Fleet Enema) hydrocodone 5 mg-acetaminophen 325 1 tab PO BID 11/01/21 11/01/21 Unknown mg tablet levothyroxine 125 mcg tablet 125 mcg PO DAILY 11/01/21 11/01/21 Unknown menthol 0.44 %-zinc oxide 20.6 % 1 applic TOPICAL TID 11/01/21 11/01/21 Unknown topical ointment (Calmoseptine) metoprolol succinate 100 mg 100 mg PO DAILY 11/01/21 11/01/21 Unknown tablet,extended release 24 hr Past Medical History Medical History (Updated 11/01/21 @ 13:46 by Roxanne Grimaldo PA-C) Adult failure to thrive Per records Atrial fibrillation 12/28/2017 DX'D. On Xarelto Pacemaker placed 2017 Cardiac pacemaker in situ Chronic kidney disease, stage 3 Diabetes mellitus On Metformin Diabetic neuropathy GERD (gastroesophageal reflux disease) Hyperlipemia Hypertension Hypothyroid Iron deficiency anemia Mitral valve disorder Moderate mitral insufficiency and mild mitral stenosis per 12/2017 echo. 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 S/P cataract extraction and insertion of intraocular lens R/L S/P left knee arthroscopy Social History Smoking Status: Unknown if ever smoked Hx Substance Use: No (unknown, info obtained from [facility] record) substance use type: does not use Lab Results Anesthesia Preop Results Results Anesthesia Widget: 2 WBC 9.90 K/uL (4.8-10.8) 10/19/21 Hgb 12.3 g/dL (12.0-16.0) 10/19/21 Hct 37.1 % (37-47) 10/19/21 Plt 256 K/uL (130-400) 10/19/21 Na 134 mmol/L (136-145) L 10/24/21 K 3.8 mmol/L (3.5-5.1) 10/24/21 Cl 99 mmol/L (98-107) 10/24/21 CO2 28 mmol/L (21-32) 10/24/21 BUN 21 mg/dl (6-23) 10/24/21 Creat 0.93 mg/dl (0.6-1.2) 10/24/21 Glucose Level 104 mg/dl (70-99(Fasting)) H 10/24/21 PT 12.8 Seconds (9.0-12.0) H 10/03/21 PTT 34.4 Seconds (21.0-31.0) H 10/03/21 INR 1.3 (0.9-1.1) H 10/03/21 TSH 7.157 uIu/ml (0.300-4.500) H 10/19/21 HA1c 5.9 % (4.5-5.6) H 10/03/21 Urine Color Dark Yellow 10/19/21 Urine Appearance Clear (Clear) 10/19/21 Urine pH 6.5 (4.5-7.5) 10/19/21 Urine Specific [place] 1.020 (1.000-1.030) 10/19/21 Urine Protein Negative (Negative) 10/19/21 Urine Glucose (UA) Negative (Negative) 10/19/21 Urine Ketones Negative (Negative) 10/19/21 Urine Blood Negative (Negative) 10/19/21 Urine Nitrite Negative (Negative) 10/19/21 Urine Bilirubin Negative (Negative) 10/19/21 Urine Urobilinogen Negative (Negative) 10/19/21 Urine Leukocyte Esterase 1+ (Negative) H 10/19/21 Urine WBC (Auto) 5-10 /hpf (0-5) H 10/19/21 Urine RBC (Auto) 0-4 /hpf (0-4) 10/19/21 Urine Hyaline Casts (Auto) 1-5 /lpf (0-5) 10/19/21 Urine Epithelial Cells (Auto) >30 /lpf (0-5) H 10/19/21 Urine Bacteria (Auto) Negative (Negative) 10/19/21 Testing Electrocardiogram Date: 10/04/21 Per interpretation report on EKG 10/03/21= Ventricular pacemaker rhythm at 72bpm. Tracing included under additional tab on 10/03/21 Echocardiogram Date:01/26/18 ([facility]) EF:50-55% Grade 1 diastolic dysfunction. Normal left ventricular systolic function. Mild concentric LVH. Left atrium moderately dilated. Right-sided chambers were at least moderately dilated. RV function is mildly depressed. Aortic valve trileaflet with moderate sclerosis. Sclerosed mitral valve with mitral annular calcification and at least moderate 2-3+ mitral insufficiency and mild mitral stenosis. Moderate to severe tricuspid insufficiency related to dilated tricuspid annulus and evidence of mild to moderate pulmonary hypertension (40-45 mmHg). Other Testing Angiogram of LE 10/22/21= Findings See Below Left lower extremity-- -SFA80% mid segment in-stent restenosis, mild diffuse distal disease -Poplitealdiffuse 50 to 60% disease -ATAproximal stent widely patent, diffuse moderate mid to distal disease, 100% distal occlusion above the ankle -CLASSROOM TECHNOLOGY COACH 100% occluded Peronealsevere diffuse disease, occluded in mid segment, reconstitutes at the ankle via collaterals -DPA fills via collaterals from peroneal Medial/lateral plantar arteries partially fill via collaterals from peroneal Summary: 1. Left lower extremity --80% mid SFA in-stent restenosis, 55% diffuse popliteal, patent proximal GIL stent, 100% occluded distal GIL. Known CLASSROOM TECHNOLOGY COACH, peroneal chronic occlusions. 2. Successful angioplasty left GIL into DPA with 2.0 and 2.5 balloons 3. Successful angioplasty of left popliteal artery with 4.0 x 150 mm Lutonix drug-eluting balloon 4. Successful angioplasty of left mid SFA in-stent restenosis with 5.0 x 60 mm Lutonix drug-eluting balloon Final result: Brisk single-vessel runoff to the foot via GIL. Pacemaker Check 04/04/21= PolarTechtronic pacemaker. Implanted 07/02/18. Battery longevity 9.5-9.8 years. Pacemaker Mode: VVI. AUTO BODY TECHNICIAN: 81%. No alerts.
[2021-11-06] MEDS ORDERED: TRANEXAMIC ACID 1,000 MG in SODIUM CHLORIDE 0.9% 50 ML IV ONE (06:00)
[2021-11-06] MEDS ORDERED: ceFAZolin 1000MG 1,000 MG/7.5 ML SYR IV SCH (06:00)
[2021-11-06] MEDS ORDERED: TRANEXAMIC ACID 1,000 MG **IV Pre-op IV SCH (06:00)
[2021-11-06] MEDS ORDERED: LR 15ML/HR IV SCH (06:00)
[2021-11-06] MEDS ORDERED: ROPIVACAINE 0.5% 5 MG/ML 30 ML VIAL ONE (06:29)
[2021-11-06] MEDS ORDERED: LIDOCAINE 2% 2 ML VIAL/AMP(20MG/ML) INFIL ONE (06:45)
[2021-11-06] MEDS ORDERED: PROPOFOL IV EMULSION 10 MG/ML 20 ML VIAL IV ONE (06:45)
[2021-11-06] MEDS ORDERED: ONDANSETRON INJ 2 MG/ML 2 ML VIAL ONE (06:45)
[2021-11-06] MEDS ORDERED: fentaNYL citrate 100 MCG/2 ML VIAL ONE (06:45)
[2021-11-06] MEDS ORDERED: DEXAMETHASONE SOD INJ 4 MG/ML VIAL ONE (06:45)
--- NOTE | 2021-11-06 06:59 | History & Physical Bridge Note ---
Date of Service November 06, 2021 History & Physical Bridge Note I have examined the patient, reviewed the History & Physical and in the interval since the performance of the History & Physical I have noted the following changes of clinical significance: no changes noted
[2021-11-06] MEDS ORDERED: fentaNYL citrate 100 MCG/2 ML VIAL IV PRN (07:39)
[2021-11-06] MEDS ORDERED: ATROPINE SULFATE 0.1 MG/ML 10ML SYR IV PRN (07:39)
[2021-11-06] MEDS ORDERED: ONDANSETRON INJ 2 MG/ML 2 ML VIAL IV PRN ×2 (07:39→11:14)
[2021-11-06] MEDS ORDERED: ePHEDrine sulfate 50 MG/ML AMP IV PRN (07:39)
[2021-11-06] MEDS ORDERED: PHENYLEPHRINE 100MCG/ML 5ML SYR ONE (08:16)
[2021-11-06] MEDS ORDERED: BUPIVACAINE 0.5 % 5 MG/1 ML MPF 30ML VIAL ONE (09:26)
[2021-11-06] MEDS ORDERED: LIDOCAINE 1% LOCAL 20 ML VIAL ONE (09:26)
--- NOTE | 2021-11-06 09:44 | Operative Report ---
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 Fitting Room Maintenance Mechanic Melissa Spangler PA-C Estimated Blood Loss 5 Findings Consistent with Post-Op Diagnosis Specimens Left lower leg Anesthesia Type General Regional Description of Procedure Patient was taken to the operating room, placed under general anesthesia. Time out performed, prepped and draped in routine sterile fashion. Given 1gm IV ancef for surgical prophylaxis. I was present during the entire case and assisted with positioning, tissue retraction, hemostasis, amputation of leg and closure. Please see Dr. Hernandez's operative report for further details. I attest to the content of the Intraoperative Record and any orders documented therein. Any exceptions are noted below.
--- NOTE | 2021-11-06 09:48 | Operative Report ---
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 She is several weeks status post a left foot partial fourth ray resection for ischemic necrosis secondary to peripheral artery disease. She was felt to have adequate blood supply for healing. Unfortunately the the wound necrosis and she underwent an angioplasty which has improved her circulation but she has a large area of necrosis over the dorsal lateral and plantar aspect of the left foot. There is also a ischemic ulcer 3 cm in diameter over the left lateral heel and one about 5 cm in diameter over the left lateral mid leg. I discussed the treatment options with the patient's family as she has dementia and is not capable of making her own decisions. I do not think that a transmetatarsal amputation would be of viable. Her function is low and she is minimal if at all ambulator. Functionally a transfemoral amputation is equivalent to a transtibial amputation for her. After weighing out the risks benefits and alternatives the patient family elected to do the above-knee amputation which would increase the likelihood of a single procedure to affect healing and eliminate the problem. Description of Procedure Informed consent obtained. Patient identified. Her granddaughter identified the operative site as the left femur. I marked with my initials. A preoperative surgical timeout was performed and preop dose of IV antibiotics and TXA was given. She was taken to the operating room positioned supine on the OR table. The leg was prescribed and then prepped and draped in usual sterile fashion. We prepped down to the ankle however a occlusive stockinette was utilized up to the level of the knee. DVT prophylaxis with mechanical devices and postoperatively she will be started back on her blood thinner. Her care has been coordinated with Dr. Luna at [facility] and her Plavix and blood thinner has been held. The exam before surgery demonstrated the ulceration about 5 cm in diameter with full-thickness skin necrosis and a large black eschar about five or 6 cm in diameter mid lateral leg. There is another one 3 cm over the left lateral heel. There was a full-thickness necrosis of the lateral distal portion of the forefoot and when elevated there was purulence underneath this. Fluoroscopic guidance was utilized throughout the procedure. The limb was exsanguinated with gravity. I did apply a very loose Esmarch from the calf up to the thigh. A sterile tourniquet was applied and inflated to 250 mmHg. Using fluoroscopic guidance I marked out the desired level of the transfemoral amputation. The diameter of the thigh was about 14 cm so we selected skin flaps in a [place] fashion extending distally anterior and posterior to the femoral resection level of 7 cm. The skin was incised along this line. Cautery was utilized to go down through the subcutaneous tissues. The muscles were transected paralleling the incision. The femur was identified and the soft tissues were elevated proximally. Laterally and posteriorly the same was performed. The skin was incised. Electrocautery was utilized down to subcutaneous tissues. The muscles were then divided after isolating them using a clamp. The saphenous neurovascular structures were not readily encountered. Care was taken medially to release the abductor musculature and the vastus medialis. Once the right hand had been released from the soft tissues and muscle perspective in a circumferential fashion I identified the femoral neurovascular bundle. I palpated this stent that was in place and just distal to this I applied a clamp. I did a single 2-0 silk tie distally and a 222 0 s ilk tie proximally on the artery which was then cut. I did a single tied distally on the vein and a double tie proximally. The sciatic nerve was identified singly ligated as far proximal as possible. Pulled into the wound amputated with electrocautery and allowed to retract. The femur was then transected at the predetermined level with just enough shortening to allow soft tissue closure. This cut was made with an oscillating saw perpendicular to the long axis of the femur and the specimen was removed. At this time the tourniquet was let down and there was no significant bleeding. The femoral neurovascular bundle was completely dry. There was some punctate bleeding which was controlled with electrocautery but in general very little bleeding at all. Care was taken to protect the soft tissues at all times. The wound was then copiously irrigated. I then took the muscular fascia anteriorly and posteriorly and reapproximated this over the stump with #1 Vicryl. Subsequent to that the subcutaneous tissues were closed with 0 Vicryl to limit the space followed by 2-0 Vicryl. Several near far far near retention sutures were applied with #1 nylon followed by a 2-0 nylon horizontal mattress sutures to close the skin in a tension-free fashion. Local anesthetic 0.5% Marcaine and 1% lidocaine was injected into the skin and subcutaneous tissues. The leg was cleaned wet and dry sponges and a soft sterile dressing was applied Xeroform 4 x 4's ABD and an Gian wrap. Patient was awake from anesthesia without difficulty taken to the recovery room in stable condition. The resected the limb was sent for specimen. Counts are correct blood loss is estimated to be 5 cc. At the conclusion the operation spoke the patient's family, her granddaughter and informed her of my findings. Patient will be admitted to the hospital given routine postop antibiotics. Medicine will be consulted. Glycemic index consult. Plan is if she is stable to transfer back to [facility] tomorrow. We will resume her blood thinners in the morning. I attest to the content of the Intraoperative Record and any orders documented therein. Any exceptions are noted below.
--- NOTE | 2021-11-06 10:10 | Anesthesia Procedure Note ---
Date of Service November 06, 2021 Anesthesia Post Epidural Note Vital Signs Vital Signs: Temp Pulse Resp BP Pulse Ox 97.9 F 72 17 106/52 L 99 11/06/21 09:45 11/06/21 10:05 11/06/21 10:05 11/06/21 10:05 11/06/21 10:05 Notes Mental Status: alert / awake / arousable and participated in evaluation Nausea / Vomiting: adequately controlled Pain: adequately controlled Airway Patency, RR, SpO2: stable & adequate BP & HR: stable & adequate Hydration State: stable & adequate Neuraxial Anesthesia: was administered and sensory block is resolving Anesthetic Complications: no major complications apparent and Pt Satisfied with anesthetic care Epidural: Removed without complications and With tip intact
--- NOTE | 2021-11-06 11:03 | Fluoroscopy Report ---
FL knee LT 1 or 2V CLINICAL HISTORY: Left above-knee amputation. COMPARISON STUDY: Left femur radiographs October 30, 2021. FLUOROSCOPY TIME: 3 seconds. FLUOROSCOPIC IMAGES: 2 FINDINGS: Fluoroscopy was provided during left above-knee amputation. Expected postoperative findings are noted. IMPRESSION: Fluoroscopy provided during left above-knee amputation. ACT 112: Negative or not required by law. Electronically signed by: Miguelangel Roche M.D. 11/06/2021 11:01 AM
[2021-11-06] MEDS ORDERED: SOD PHOSPHATE/SOD BIPHOSPHATE ENEMA 132 ML BTL PR PRN (11:14)
[2021-11-06] MEDS ORDERED: PHARMACY GLYCEMIC MGMT CONSULT PRN (11:14)
[2021-11-06] MEDS ORDERED: traMADol HCL 50 MG TABLET PO PRN (11:14)
[2021-11-06] MEDS ORDERED: MAGNESIUM HYDROXIDE SUSP 30 ML UDC PO PRN (11:14)
[2021-11-06] MEDS ORDERED: NALOXONE HCL 0.4 MG/1 ML VIAL/CARP IV PRN (11:14)
[2021-11-06] MEDS ORDERED: METOCLOPRAMIDE HCL INJ 5 MG/ML 2 ML VIAL IV PRN (11:14)
[2021-11-06] MEDS ORDERED: bisacodyL 10 MG SUPP PR PRN (11:14)
--- NOTE | 2021-11-06 11:52 | Pharmacy Report ---
Glycemic Ortho Sign Off Note - Date of Service November 06, 2021 - Scope Glycemic Pharmacist consulted for glycemic control and to write orders per [facility] inpatient glycemic control protocol. - Objective Accuchecks BSG (last 24hrs):: 11/06/21 11/06/21 05:45 09:46 POC Glucose 74 93 - Assessment * Pt is maintained on oral antidiabeticagent[s]as anoutpatient with excellent control per recent A1c * Oral agents are not recommended for inpatient use d/t drug interactions, changing PO intake, and difficulty titrating for acute hyper/hypoglycemia. * Recommended regimen for inpatient use is SQ insulin * Low stress weight based insulin dosing appropriate since patient has minimal risk factors for insulin resistance (i.e. no steroids). * Appropriate to DC insulin and resume outpatient antidiabetic regimen at discharge * Goal is to maintain BSGs <200 mg/dl (ideally <150 mg/dl) to prevent post op complications - Plan For Inpatient Glycemic Control * Basal insulin * Not needed based on A1c, pre-op BSGs, and minimal risk factors for insulin resistance * Bolus insulin * Utilize low stress weight based NovoLog parameters per scale ACHS * Pharmacy has entered glycemic orders and is signing off of the glycemic consult. We will no longer be making adjustments to inpatient regimen. Please feel free to re-consult if needed. Thank you.
[2021-11-06] MEDS ORDERED: LOPERAMIDE HCL 2 MG CAP PO PRN (11:54)
[2021-11-06] MEDS: SODIUM CHLORIDE 0.9% 1000ML 1,000 ML IV SCH ×2 (13:54→21:55)
[2021-11-06] MEDS: INSULIN ASPART PER UNIT SC SCH ×3 (15:23→21:54)
[2021-11-06] MEDS: ACETAMINOPHEN 500 MG TAB PO SCH ×2 (15:29→21:57)
--- NOTE | 2021-11-06 15:47 | Orthopedic Progress Note ---
Date of Service November 06, 2021 Assessment & Plan (1) Above knee amputation of left lower extremity: Plan: POD 0 - s/p left AKA with Dr. Hernandez She seems to be doing well. Slightly confused, but this is her baseline. Does not appear to be in pain and doesn't state that she's having pain. Attempting to eat lunch, but states that she doesn't want it. She may be out of bed to chair with assistance only. Needs to maintain NWB LLE at all times. PT/OT consulted. Hospitalist consulted for post op medical management - appreciate assitance. If does well overnight and doing well tomorrow morning will consider discharge to [facility] tomorrow. Surgical findings discussed with family. Xarelto and Plavix (on both at [facility]) to be resumed tomorrow. Admission and Anticipated Discharge Date Admission Date: November 06, 2021 Subjective Patient sitting in bed, confused, but awake. Attempting to eat her lunch. Requested a drink of water. Physical Exam Musculoskeletal: Patient seen and evaluated today by myself and Dr. Hernandez. Left leg elevated on a pillow. Does not seem to be in pain. Gave her a drink of water, dressings intact and dry. Results & Data ([facility]) Vital Signs (Past 12 Hours) Vital Signs Temp Pulse Pulse Resp BP Pulse Ox 11/06/21 14:50 36.3 C L 72 16 122/66 90 11/06/21 14:20 36.5 C 70 16 115/68 100 11/06/21 13:50 36.5 C 70 16 102/65 93 11/06/21 13:30 70 18 113/70 98 11/06/21 13:15 70 18 111/59 L 100 11/06/21 13:00 70 17 107/69 97 11/06/21 12:45 70 20 104/68 99 11/06/21 12:30 72 16 120/63 100 11/06/21 12:15 70 16 115/58 L 98 11/06/21 12:00 36.6 C 69 16 111/65 97 11/06/21 11:45 70 16 130/56 L 99 11/06/21 11:30 73 16 112/68 97 11/06/21 11:15 36.5 C 70 16 111/61 97 11/06/21 11:00 70 17 116/55 L 99 11/06/21 10:45 72 17 97/68 L 97 11/06/21 10:35 36.4 C L 70 17 112/62 100 11/06/21 10:25 70 17 89/63 L 100 11/06/21 10:15 79 18 104/63 100 11/06/21 10:05 72 17 106/52 L 99 11/06/21 09:55 70 19 109/59 L 98 11/06/21 09:45 36.6 C 70 20 133/66 100 11/06/21 06:04 36.5 C 67 16 162/87 H 99
[2021-11-06] MEDS ORDERED: TRANEXAMIC ACID / 0.7% NACL 1,000 MG/100 ML BAG IV SCH (16:00)
[2021-11-06] MEDS: MENTHOL-ZINC OXIDE 360 APPLN/120 GM TUBE EXT SCH ×2 (16:00→21:55)
[2021-11-06] MEDS: DIGOXIN 0.125 MG TAB PO SCH (16:01)
--- NOTE | 2021-11-06 16:14 | Hospitalist Consultation ---
Date of Consultation November 06, 2021 Assessment & Plan (1) Above knee amputation of left lower extremity: AKA performed by Dr. Hernandez secondary to chronic ischemia/necrosis of the left foot and leg - Dressing per primary Orthopaedics - ABX per primary Orthopaedics service - Pain control reviewed appropriate with rescue Narcan available - SCDs in place - Maintenance IVF per primary Orthopaedics service - ICE per primary service - Stool softeners/enema in place - OT/PT consult already in place (2) Afib: Afib with pacemaker- - On digoxin and Metoprolol as outpatient- continue as hemodynamics allow - Follow digoxin with renal function - Doses continued through postoperative phase- appropriate - She has functioning VVI pacemaker in place - follow hemodynamics- currently stable - Restart her Xarelto when primary service feels hemostasis is achieved- currently scheduled to resume 11/07/21 at PM (3) DM type 2 (diabetes mellitus, type 2): Transitioned to Insulin Aspart by primary service with CF 30 and Carb ratio 0 - Follow patient nutritional intake- she may need assistance with feedings - Goal <180 (4) Chronic kidney disease, stage 3a: BMP in the morning - follow - Continue Lasix if renal function stable postoperatively - adjust medications if needed (5) Cardiac pacemaker: VVI placed for afib and rate control - She is rate controlled with digoxin and Metoprolol - Continue (6) Peripheral arterial disease: As above - Plavix to restart when primary serviced feels hemostasis is achieved- scheduled to start [id number]@ [id number] - agree (7) Anticoagulant long-term use: Xarelto and Plavix- see above (8) Hypothyroid: Continue Synthroid dose - follow up with PCP (9) Dementia: Chronic - Follow for delirium - no reported history of behavioral issues or combativness (10) GERD (gastroesophageal reflux disease): Continue Famotidine Supervising Physician Co-Signing Physician Notes Attending Attestation and Consult Note - Pt seen/examined, chart reviewed, care plan d/w ROSSY Powell. I agree with the castro components of his documentation. 81yo female with dementia, a.fib on xarelto, PAD, T2DM, hypothyroidism, pacer - underwent left AKA today by Dr Juan Hernandez for nonhealing left leg wounds despite attempts at more conservative measures in the recent past. I saw Ms Marinelli on the med/surg floor later in the day. She was pleasantly confused but resting comfortably. She was unable to offer any meaningful history or ROS due to her dementia. PMH/PSH/allergies/meds/sochx/famhx - reviewed VSS, afebrile gen - NAD, confused mouth - MMM neck - no JVD heart - RRR, s1 s2 lungs - cta b/l abd - mildly distended, BS+, NT ext - left leg stump wrapped in large dressings and compressive dressing; right foot pulses 1-2+, no edema psych - oriented to person only labs reviewed op note reviewed A/P: 1. s/p left AKA 2. abdominal distension - likely constipation, but need to watch carefully for ileus - add senna, add miralax, serial exams. 3. hypothyroidism - TSH in Sep 2021 was mildly elevated; consider repeat this admission, adjust synthroid if TSH still high. 4. a.fib - xarelto on hold due to #1 - resume xarelto when ok with orthopedics. 5. dementia - avoid sedatives, etc that can precipitate delirium. 6. pacemaker status. Marques Hall MD History of Present Illness Reason for Consultation: Medical managment Requesting Physician: Dr. Toscano Attending Physician: Juan Hernandez MD History of Present Illness 81 YOF with past medical history of: Afib, VVI pacemaker, PAD, dementia, s/p left 4th toe amputation Oct 09, osteomyelitis, DM II, hypothyroidism, CKD. She is a resident of [facility]. For her AFIB she is on Xarelto for her PAD she is on Plavix. She had stopped her Xarelto and Plavix 72 hours prior to surgery per chart review and recommendation by her PCP. She was having worsening wounds/necrosis/pain following Oct 09 procedure with remainin eschar to her lateral mid calf and heel. She proceeded today for a left AKA by Dr. Hernandez. She had neuraxial anesthesia. Hospitalist was consulted for medical management for patient postoperative period. Patient was evaluated in her room postoperatively, she was accompanied by her grand-daughter who was useful in identifying patient's underlying dementia as well as her physical and ADL needs. Patient was awake, pleasantly confused, speech clear but inappropriate. Per the grand-daughter, this is her normal conversation and ramblings. She has good days and bad days, but denies that she has any acting out or delirium. She also endorses that she has not had any difficulties following anesthesia with nausea or overly sedated in the past. The patient is on room air and is oxygenating well, her HR is slightly irregular, and blood pressure is with adequate systolic and MAP. She has no Abdi catheter in and is on maintenance IVF. She tolerated small lunch with coffee and some fruit and a bit of her sandwich. Patient leg wound is intact and covered with web gauze dressing, no drainage noted, surrounding tissue is soft and not pain with palpation. Allergies Allergy/AdvReac Type Severity Reaction Status Date / Time adhesive tape Allergy Intermediate Rash Verified 11/06/21 06:03 amoxicillin Allergy Intermediate Rash Verified 11/06/21 06:03 latex Allergy Unknown unknown, Verified 11/06/21 06:03 per [facility] record Home Medications Medication Instructions Recorded Confirmed Type diltiazem HCl 240 mg 240 mg PO QPM 07/20/18 11/06/21 History capsule,extended release 24 hr (Cartia XT) omeprazole 40 mg capsule,delayed 40 mg PO DAILY 07/20/18 11/06/21 History release digoxin 125 mcg (0.125 mg) tablet 125 mcg PO DAILY 08/12/19 11/06/21 History furosemide 20 mg tablet (Lasix) 40 mg PO DAILY tab 08/12/19 11/06/21 History metformin 500 mg tablet 1,000 mg PO DAILY 08/12/19 11/06/21 History gabapentin 100 mg capsule 100 mg PO BID 04/04/21 11/06/21 History hydrocodone 5 mg-acetaminophen 325 1 tab PO Q4H PRN tab 04/04/21 11/06/21 History mg tablet rivaroxaban 20 mg tablet (Xarelto) 20 mg PO HS 04/04/21 11/06/21 History metoprolol succinate 50 mg 150 mg PO DAILY 09/03/21 11/06/21 History tablet,extended release 24 hr multivitamin (Daily Multi-Vitamin) 1 tab PO DAILY 09/03/21 11/06/21 History acetaminophen 325 mg tablet 650 mg PO Q6 PRN 10/02/21 11/06/21 History bisacodyl 10 mg rectal suppository 10 mg KS Q3D PRN 10/02/21 11/06/21 History (Dulcolax (bisacodyl)) famotidine 10 mg tablet 10 mg PO HS 10/02/21 11/06/21 History loperamide 2 mg tablet 2 mg PO Q4H PRN 10/02/21 11/06/21 History magnesium hydroxide 400 mg/5 mL 30 ml PO DAILY PRN 10/02/21 11/06/21 History oral suspension (Milk of Magnesia) povidone-iodine 10 % topical swab 1 applic TOPICAL DAILY 10/02/21 11/06/21 History (Betadine Swabsticks) sodium phosphates 19 gram-7 118 ml KS UD PRN 10/02/21 11/06/21 History gram/118 mL enema (Fleet Enema) hydrocodone 5 mg-acetaminophen 325 1 tab PO BID 11/01/21 11/06/21 History mg tablet levothyroxine 125 mcg tablet 125 mcg PO DAILY 11/01/21 11/06/21 History menthol 0.44 %-zinc oxide 20.6 % 1 applic TOPICAL TID 11/01/21 11/06/21 History topical ointment (Calmoseptine) metoprolol succinate 100 mg 100 mg PO DAILY 11/01/21 11/06/21 History tablet,extended release 24 hr Patient History Medical History Adult failure to thrive Per records Atrial fibrillation 12/28/2017 DX'D. On Xarelto Pacemaker placed 2017 Cardiac pacemaker in situ Chronic kidney disease, stage 3 Diabetes mellitus On Metformin Diabetic neuropathy GERD (gastroesophageal reflux disease) Hyperlipemia Hypertension Hypothyroid Iron deficiency anemia Mitral valve disorder Moderate mitral insufficiency and mild mitral stenosis per 12/2017 echo. 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 S/P cataract extraction and insertion of intraocular lens R/L S/P left knee arthroscopy Family History Son Family history of diabetes mellitus Social History Smoking Status: Never smoker Hx Alcohol Use: No Hx Substance Use: No Preferred Language: British Communication Ability: Impaired Communication Ability Comment: pt disoriented Visual Impairment: Limited Hearing Ability: Normal Classroom Aide Required: No Beliefs That Will Affect Care: None marital status: / Current Living Situation: [facility] Current Living Situation Comment: [facility] current occupational status: retired How many Children do You have: 2 Other Information That Helps Us Care for You: No other: HAS A WALKER AND CANE THAT SHE DOESN'T USE OFTEN Feels Safe at Home: Yes during the past year weight has: remained stable Assistive Devices: Glasses Review of Systems Review of Systems: unable to obtain full ROS secondary to patient dementia Physical Exam Physical Exam: PHYSICAL EXAM: General: awake, alert, conversant Head: Normocephalic, atraumatic ENT: PERRLA, mucous membranes moist Neuro: AAO to person, speech clear and inappropriate, strength intact bilaterally 5/5, localizes pain Chest: equal rise and fall of the chest, no accessory muscle use, no heaves or thrills, scattered fine crackles in the bases, on room air Cardiac: slightly irregular rhythm, regular rate, skin warm dry, cap refill <3 seconds, no murmur, pulse right leg 1+, radial pulses 2+ GI: NABS x 4 quadrants, soft, nontender to palpation, no rebound, guarding or tenderness : Spontaneously voiding, no pain, no CVA tenderness, Extremities: Left AKA with gauze dressing- no drainage Psych: Normal mood and affect Skin: no rash or erythema Results & Data Results & Data ([facility]) Vital Signs (Past 12 Hours) Vital Signs Temp Pulse Pulse Pulse Resp BP Pulse Ox 11/06/21 16:01 70 11/06/21 15:50 36.7 C 70 16 129/67 99 11/06/21 14:50 36.3 C L 72 16 122/66 90 11/06/21 14:20 36.5 C 70 16 115/68 100 11/06/21 13:50 36.5 C 70 16 102/65 93 11/06/21 13:30 70 18 113/70 98 11/06/21 13:15 70 18 111/59 L 100 11/06/21 13:00 70 17 107/69 97 11/06/21 12:45 70 20 104/68 99 11/06/21 12:30 72 16 120/63 100 11/06/21 12:15 70 16 115/58 L 98 11/06/21 12:00 36.6 C 69 16 111/65 97 11/06/21 11:45 70 16 130/56 L 99 11/06/21 11:30 73 16 112/68 97 11/06/21 11:15 36.5 C 70 16 111/61 97 11/06/21 11:00 70 17 116/55 L 99 11/06/21 10:45 72 17 97/68 L 97 11/06/21 10:35 36.4 C L 70 17 112/62 100 11/06/21 10:25 70 17 89/63 L 100 11/06/21 10:15 79 18 104/63 100 11/06/21 10:05 72 17 106/52 L 99 11/06/21 09:55 70 19 109/59 L 98 11/06/21 09:45 36.6 C 70 20 133/66 100 11/06/21 06:04 36.5 C 67 16 162/87 H 99 Laboratory Results Reviewed from Pre-op 10/24 ECG Additional Comments: VVI ventricular paced 100% PG Care Time/CCT Total # of Minutes Spent Total Time Spent with Patient: Total time spent is greater than 50% in coordination of care (as documented) at patient's floor/unit and/or counseling patient: Coding Level of Care Code 22716 Office/OBS Consult Lvl 3 Diagnoses Above knee amputation of left lower extremity S78.112A Afib I48.21 Atrial fibrillation type: permanent DM type 2 (diabetes mellitus, type 2) E11.9 Diabetes mellitus complication status: without complication Diabetes mellitus senior living insulin use: without terminal gauger use Chronic kidney disease, stage 3a N18.3 Cardiac pacemaker Z95.0 Anticoagulant long-term use Z79.01 Hypothyroid E03.9 Hypothyroidism type: acquired Peripheral arterial disease I73.9 Dementia F03.90 GERD (gastroesophageal reflux disease) K21.9 Esophagitis presence: esophagitis presence not specified (1) DM type 2 (diabetes mellitus, type 2) Diabetes mellitus complication status: without complication Diabetes mellitus terminal gauger insulin use: without senior living use Qualified Code(s): E11.9 - Type 2 diabetes mellitus without complications (2) Afib Atrial fibrillation type: permanent Qualified Code(s): I48.21 - Permanent atrial fibrillation (3) Hypothyroid Hypothyroidism type: acquired Qualified Code(s): E03.9 - Hypothyroidism, unspecified (4) GERD (gastroesophageal reflux disease) Esophagitis presence: esophagitis presence not specified Qualified Code(s): K21.9 - Gastro-esophageal reflux disease without esophagitis
[2021-11-06] MEDS: ceFAZolin 1000MG 1,000 MG/7.5 ML SYR IV SCH (16:41)
[2021-11-06] MEDS: FAMOTIDINE 10 MG TABLET PO SCH (21:54)
[2021-11-06] MEDS: GABAPENTIN 100 MG CAP PO SCH (21:54)
[2021-11-07] MEDS: ceFAZolin 1000MG 1,000 MG/7.5 ML SYR IV SCH (00:28)
[2021-11-07] MEDS: HYDROCODONE/ACETAMOPHEN 5/325MG TAB PO PRN ×2 (02:30→23:05)
[2021-11-07] MEDS: ACETAMINOPHEN 500 MG TAB PO SCH ×3 (05:45→23:09)
[2021-11-07] MEDS: LEVOTHYROXINE SODIUM 125 MCG TABLET PO SCH (05:45)
[2021-11-07 07:07] LABS: Hemoglobin 12.2 g/dL (12.0-16.0); Mean Corpuscular Hemoglobin 31.7 pg (25-34); Mean Corpuscular Volume 96.1 fL (80-100); Mean Platelet Volume 10.3 fL (7.4-10.4); Platelet Count 183 K/uL (130-400); Red Blood Count 3.85 M/uL (4.2-5.4); White Blood Count 8.83 K/uL (4.8-10.8)
[2021-11-07 07:27] LABS: BUN Creatinine Ratio 20.7 (10-20); Calcium 8.1 mg/dl (8.5-10.1); Creatinine Clr Calc Pharmacy 65.8 ml/min; Est GFR (African American) 100.2 ml/min; Est GFR (Non-African American) 86.4 ml/min; Potassium 3.4 mmol/L (3.5-5.1)
[2021-11-07] MEDS: MENTHOL-ZINC OXIDE 360 APPLN/120 GM TUBE EXT SCH ×2 (08:43→15:50)
[2021-11-07] MEDS: INSULIN ASPART PER UNIT SC SCH ×4 (08:50→21:56)
[2021-11-07] MEDS ORDERED: metFORMIN HCL 500 MG TAB PO SCH (09:00)
[2021-11-07] MEDS ORDERED: METOPROLOL SUCC 50MG EXT REL TAB PO SCH (09:00)
--- NOTE | 2021-11-07 10:12 | Orthopedic Progress Note ---
Date of Service November 07, 2021 Assessment & Plan (1) Above knee amputation of left lower extremity: Plan: POD 1 - s/p left AKA with Dr. Hernandez She Is groggy today but recently had a [place] this morning which nursing confirmed with daughter that it does seem to make her more sleepy. Confused, but this is her baseline. She may be out of bed to chair with assistance only. Needs to maintain NWB LLE at all times. PT/OT consulted. Hospitalist consulted for post op medical management - appreciate Assistance. May be out of bed to chair if tolerated or at least sitting up at bedside. We'll plan for continued inpatient stay for pain control and monitoring. We'll plan to change her dressings tomorrow and if stable will [facility] after the dressing change. Case management for disposition needs. Xarelto and Plavix (on both at [facility]) to be resumed today. Admission and Anticipated Discharge Date Admission Date: November 06, 2021 Subjective In bed for visit, she is very sleepy. Hard to open her eyes, but she does a few times during our visit. She is confused, but seems to be at her baseline. Physical Exam Musculoskeletal: Patient seen and evaluated today by myself as well as Dr. Hernandez. Her left lower extremity is elevated on a pillow. The dressings are clean, dry and intact. She does have pain with palpation. Results & Data ([facility]) Vital Signs (Past 12 Hours) Vital Signs Temp Pulse Resp BP Pulse Ox 11/07/21 07:05 36.5 C 83 16 121/72 92 11/07/21 02:15 36.6 C 77 16 134/61 93 11/06/21 22:20 36.8 C 71 18 138/77 99 Laboratory Results 11/07/21 11/07/21 11/07/21 Range/Units 08:00 06:42 06:42 WBC 8.83 (4.8-10.8) K/uL RBC 3.85 L (4.2-5.4) M/uL Hgb 12.2 (12.0-16.0) g/dL Hct 37.0 (37-47) % MCV 96.1 (80-100) fL MCH 31.7 (25-34) pg MCHC 33.0 (32-36) g/dL RDW Std Deviation 53.0 H (36.4-46.3) fL RDW Coeff of Lucas 15.0 H (11.5-14.5) % Plt Count 183 (130-400) K/uL MPV 10.3 (7.4-10.4) fL Sodium 138 (136-145) mmol/L Potassium 3.4 L (3.5-5.1) mmol/L Chloride 106 (98-107) mmol/L Carbon Dioxide 24 (21-32) mmol/L Anion Gap 8 (3-11) BUN 12 (6-23) mg/dl Creatinine 0.58 L (0.6-1.2) mg/dl Est Cr Clr Drug Dosing 65.8 ml/min Est GFR ( Amer) 100.2 ml/min Est GFR (Non-Af Amer) 86.4 ml/min BUN/Creatinine Ratio 20.7 H (10-20) Glucose 109 H (70-99(Fasting)) mg/dl POC Glucose 99 (70-99) mg/dl Calcium 8.1 L (8.5-10.1) mg/dl Nasal Screen MRSA (PCR) (Negative) 11/06/21 11/06/21 11/06/21 Range/Units 20:50 17:22 16:45 WBC (4.8-10.8) K/uL RBC (4.2-5.4) M/uL Hgb (12.0-16.0) g/dL Hct (37-47) % MCV (80-100) fL MCH (25-34) pg MCHC (32-36) g/dL RDW Std Deviation (36.4-46.3) fL RDW Coeff of Lucas (11.5-14.5) % Plt Count (130-400) K/uL MPV (7.4-10.4) fL Sodium (136-145) mmol/L Potassium (3.5-5.1) mmol/L Chloride (98-107) mmol/L Carbon Dioxide (21-32) mmol/L Anion Gap (3-11) BUN (6-23) mg/dl Creatinine (0.6-1.2) mg/dl Est Cr Clr Drug Dosing ml/min Est GFR ( Amer) ml/min Est GFR (Non-Af Amer) ml/min BUN/Creatinine Ratio (10-20) Glucose (70-99(Fasting)) mg/dl POC Glucose 112 H 146 H (70-99) mg/dl Calcium (8.5-10.1) mg/dl Nasal Screen MRSA (PCR) Negative (Negative) 11/06/21 Range/Units 14:21 WBC (4.8-10.8) K/uL RBC (4.2-5.4) M/uL Hgb (12.0-16.0) g/dL Hct (37-47) % MCV (80-100) fL MCH (25-34) pg MCHC (32-36) g/dL RDW Std Deviation (36.4-46.3) fL RDW Coeff of Lucas (11.5-14.5) % Plt Count (130-400) K/uL MPV (7.4-10.4) fL Sodium (136-145) mmol/L Potassium (3.5-5.1) mmol/L Chloride (98-107) mmol/L Carbon Dioxide (21-32) mmol/L Anion Gap (3-11) BUN (6-23) mg/dl Creatinine (0.6-1.2) mg/dl Est Cr Clr Drug Dosing ml/min Est GFR ( Amer) ml/min Est GFR (Non-Af Amer) ml/min BUN/Creatinine Ratio (10-20) Glucose (70-99(Fasting)) mg/dl POC Glucose 135 H (70-99) mg/dl Calcium (8.5-10.1) mg/dl Nasal Screen MRSA (PCR) (Negative)
[2021-11-07] MEDS: GABAPENTIN 100 MG CAP PO SCH ×2 (12:21→21:56)
[2021-11-07] MEDS: CLOPIDOGREL BISULFATE 75 MG TAB PO SCH (12:21)
[2021-11-07] MEDS: FUROSEMIDE 40 MG TAB PO SCH (12:26)
[2021-11-07] MEDS: METOPROLOL SUCC 50MG EXT REL TAB PO SCH (12:26)
[2021-11-07] MEDS: MULTIVITAMIN TAB PO SCH (12:27)
[2021-11-07] MEDS: SENNA 8.6 MG TAB PO SCH (12:27)
[2021-11-07] MEDS: POLYETHYLENE (MIRALAX) 17 GM PACK PO SCH (12:27)
[2021-11-07] MEDS: PANTOprazole 40 MG TAB PO SCH (12:27)
[2021-11-07] MEDS ORDERED: LACTATED RINGER'S 1,000 ML IV SCH (16:00)
[2021-11-07] MEDS: DIGOXIN 0.125 MG TAB PO SCH (16:08)
[2021-11-07] MEDS ORDERED: RIVAROXABAN 20 MG TAB PO SCH (21:00)
[2021-11-07] MEDS: FAMOTIDINE 10 MG TABLET PO SCH (21:56)
[2021-11-08] MEDS: LEVOTHYROXINE SODIUM 125 MCG TABLET PO SCH ×2 (06:13→06:24)
[2021-11-08] MEDS: ACETAMINOPHEN 500 MG TAB PO SCH ×2 (06:14→06:23)
[2021-11-08] MEDS: GABAPENTIN 100 MG CAP PO SCH ×2 (09:15→09:28)
[2021-11-08] MEDS: INSULIN ASPART PER UNIT SC SCH ×2 (09:15→12:16)
[2021-11-08] MEDS: METOPROLOL SUCC 50MG EXT REL TAB PO SCH ×2 (09:16→09:28)
[2021-11-08] MEDS: FUROSEMIDE 40 MG TAB PO SCH ×2 (09:16→09:29)
[2021-11-08] MEDS: SENNA 8.6 MG TAB PO SCH ×2 (09:16→09:28)
[2021-11-08] MEDS: CLOPIDOGREL BISULFATE 75 MG TAB PO SCH ×2 (09:16→09:29)
[2021-11-08] MEDS: POLYETHYLENE (MIRALAX) 17 GM PACK PO SCH (09:16)
[2021-11-08] MEDS: MULTIVITAMIN TAB PO SCH (09:16)
[2021-11-08] MEDS: PANTOprazole 40 MG TAB PO SCH (09:16)
--- NOTE | 2021-11-08 12:23 | Orthopedic Progress Note ---
Date of Service November 08, 2021 Assessment & Plan (1) Above knee amputation of left lower extremity: Plan: POD 2 - s/p left AKA with Dr. Hernandez Consfused but this is her baseline. She may be out of bed to chair with assistance only. Needs to maintain NWB LLE at all times. PT/OT consulted. Dressing changed left leg today. Hospitalist consulted for post op medical management - appreciate Assistance. May be out of bed to chair if tolerated or at least sitting up at bedside. Okay to discharge patient to [facility] today. Case management for disposition needs. Xarelto and Plavix (on both at [facility]) to be resumed today. Follow up on Friday as scheduled. Admission and Anticipated Discharge Date Admission Date: November 07, 2021 Subjective Patient resting in bed, arousable. Comfortable. Physical Exam Musculoskeletal: Dressings removed left leg today, incision clean, dry and intact. Retained sutures. mild bloody draingage, but not active bleeding. Leg not swollen, tender to palpation. Able to left leg leg, move left hip without discomfort. Results & Data ([facility]) Vital Signs (Past 12 Hours) Vital Signs Temp Pulse Resp BP Pulse Ox 11/08/21 08:06 36.4 C L 84 16 141/82 H 93 Laboratory Results 11/08/21 11/08/21 11/07/21 Range/Units 12:06 08:03 20:31 POC Glucose 100 H 91 112 H (70-99) mg/dl 11/07/21 Range/Units 17:01 POC Glucose 98 (70-99) mg/dl
--- NOTE | 2021-11-08 13:44 | Discharge Summary ---
Date of Service November 08, 2021 Discharge Data Consultations 11/06/21 11:14 Consult Hospitalist Routine Procedures Performed Operation Date: 11/06/21 07:00 Actual Procedures p Left Above Knee Amputation(Left) - Juan Hernandez MD Hospital Course (1) Above knee amputation of left lower extremity: Patient was admitted to [facility] on 11/06/21 after undergoing a left above knee amputation. Her surgery was performed with general anesthesia. She tolerated the procedure well without any intra-operative complications. She was given 1 gm IV ancef for surgical prophylaxis which was continued for 24 hours post operatively. She was allowed out of bed to her chair, but did not do this during her inpatient stay. She was kept for observation, then was admitted for care on post operative day 1 for continued monitoring. She was given a regular diet. She was placed back on all her home medications. PT/OT consulted. A hospitalist consult was placed for post operative medical management during her inpatient stay and a glycemic consult was placed for management of her DM. Case management was consulted for discharge needs. She was given Dulce for post op pain control. ON post operative day 2 her dressings were changed and new dressings were applied to her left leg stump. She was advised to leave these on until her outpatient follow up scheduled on 11/12/21. She was stable for discharge on post op day 2, and was discharged to [facility] in stable condition on November 08, 2021. She will follow up as scheduled. Discharge instructions were provided, home medications were continued.
== END 2021-11-08 13:48 | DRG 617 ==
LOC: PACUINP 05:30 → ASU 05:30 → 3W 13:52

== ENCOUNTER 2023-10-23 09:01 | Inpatient (IN) ==
--- NOTE | 2023-10-20 15:11 | PAT Medication Instructions ---
Medication Instructions Date of Service October 20, 2023 Home Medications diltiazem HCl 240 mg capsule,extended release 24 hr (Cartia XT) 240 mg PO DAILY digoxin 125 mcg (0.125 mg) tablet 125 mcg PO DAILY furosemide 20 mg tablet (Lasix) 20 mg PO DAILY acetaminophen 325 mg tablet 650 mg PO Q6 PRN mild pain (1-3) or fever magnesium hydroxide 400 mg/5 mL oral suspension (Milk of Magnesia) 30 ml PO UD PRN Constipation sodium phosphates 19 gram-7 gram/118 mL enema (Fleet Enema) 118 ml MI UD PRN Constipation apixaban 2.5 mg tablet (Eliquis) 2.5 mg PO BID gabapentin 100 mg capsule 100 mg PO HS metformin 500 mg tablet 500 mg PO BID sertraline 25 mg tablet 25 mg PO HS bisacodyl 10 mg rectal suppository (Dulcolax (bisacodyl)) 10 mg MI PM PRN Constipation calcium carbonate 500 mg calcium (1,250 mg) chewable tablet 500 mg PO Q8H PRN Dyspepsia levothyroxine 75 mcg tablet 75 mcg PO QAM metoprolol succinate 50 mg tablet,extended release 24 hr 50 mg PO DAILY morphine concentrate 20 mg/mL oral syringe (FOR ORAL USE ONLY) 10 mg PO Q6H PRN mod-severe pain (4-10) omeprazole 20 mg tablet,delayed release 20 mg PO BID polyethylene glycol 3350 17 gram oral powder packet (Miralax) 17 g PO HS tramadol 50 mg tablet 50 mg PO BID zinc gluconate 50 mg tablet 50 mg PO BID MEDICATION INSTRUCTIONS: ASK your prescriber and surgeon apixaban 2.5 mg tablet (Eliquis) 2.5 mg PO BID DO NOT take the morning of surgery furosemide 20 mg tablet (Lasix) 20 mg PO DAILY metformin 500 mg tablet 500 mg PO BID zinc gluconate 50 mg tablet 50 mg PO BID bisacodyl 10 mg rectal suppository (Dulcolax (bisacodyl)) 10 mg MI PM PRN Constipation magnesium hydroxide 400 mg/5 mL oral suspension (Milk of Magnesia) 30 ml PO UD PRN Constipation sodium phosphates 19 gram-7 gram/118 mL enema (Fleet Enema) 118 ml MI UD PRN Constipation calcium carbonate 500 mg calcium (1,250 mg) chewable tablet 500 mg PO Q8H PRN Dyspepsia Take morning of surgery With a small sip of water, OTHERWISE NOTHING TO EAT OR DRINK AFTER MIDNIGHT: levothyroxine 75 mcg tablet 75 mcg PO QAM diltiazem HCl 240 mg capsule,extended release 24 hr (Cartia XT) 240 mg PO DAILY digoxin 125 mcg (0.125 mg) tablet 125 mcg PO DAILY metoprolol succinate 50 mg tablet,extended release 24 hr 50 mg PO DAILY morphine concentrate 20 mg/mL oral syringe (FOR ORAL USE ONLY) 10 mg PO Q6H PRN mod-severe pain (4-10) (if needed) acetaminophen 325 mg tablet 650 mg PO Q6 PRN mild pain (1-3) or fever (if needed) omeprazole 20 mg tablet,delayed release 20 mg PO BID tramadol 50 mg tablet 50 mg PO BID Take evening before surgery metformin 500 mg tablet 500 mg PO BID zinc gluconate 50 mg tablet 50 mg PO BID morphine concentrate 20 mg/mL oral syringe (FOR ORAL USE ONLY) 10 mg PO Q6H PRN mod-severe pain (4-10) (if needed) acetaminophen 325 mg tablet 650 mg PO Q6 PRN mild pain (1-3) or fever (if needed) omeprazole 20 mg tablet,delayed release 20 mg PO BID tramadol 50 mg tablet 50 mg PO BID bisacodyl 10 mg rectal suppository (Dulcolax (bisacodyl)) 10 mg MI PM PRN Constipation (if needed) magnesium hydroxide 400 mg/5 mL oral suspension (Milk of Magnesia) 30 ml PO UD PRN Constipation (if needed) sodium phosphates 19 gram-7 gram/118 mL enema (Fleet Enema) 118 ml MI UD PRN Constipation (if needed) polyethylene glycol 3350 17 gram oral powder packet (Miralax) 17 g PO HS gabapentin 100 mg capsule 100 mg PO HS sertraline 25 mg tablet 25 mg PO HS calcium carbonate 500 mg calcium (1,250 mg) chewable tablet 500 mg PO Q8H PRN Dyspepsia Other Notes If you have any questions please call us at [phone] or [phone] or [phone] or [phone]
--- NOTE | 2023-10-22 09:46 | Anesthesiology Consultation ---
Date of Service October 22, 2023 Assessment & Plan (1) Encounter for pre-operative examination: Chart Review Chart Review: Acceptable Risk for Surgery and Patient NOT seen in Pre Admission Testing - Check BSG AM DOS -Infectious Disease screening: Per PAT nursing assessment on 10/20/23. Patient resides at [facility] facility. No known infectious disease contacts in past 10 days or current infectious disease symptoms. No recent travel outside the country. [place] ordered for DOS Cardiac Clearance Request 10/20/23= "Patient considered intermediate risk for car diac morbidity/mortality. PVD/CAD/dementia all increased risk of OR/anesthesia. If needed to allow for procedure you deem necessary, it is low risk to hold Xarelto 3 days prior and resume LAURIE after." PCP clearance request 10/19/2023 = "Yes" patient is medically cleared for surgery Left AKA 11/06/21= Done under [place] with LMA #4 x 1 attempt, atraumatic/good seal History Surgery Operation Date: 10/23/23 10:35 Proposed Procedures p Right Above Knee Amputation - Juan Hernandez MD Height/Weight Height: 5 ft 4 in Weight: 44.906 kg Allergies Allergy/AdvReac Type Severity Reaction Status Date / Time adhesive tape Allergy Intermediate Rash Verified 10/20/23 14:35 amoxicillin Allergy Intermediate Rash Verified 10/20/23 14:35 latex Allergy Unknown contact Verified 10/20/23 14:35 dermatitis per [facility] facility records Medications Home Medications Medication Instructions Recorded Confirmed Last Taken diltiazem HCl 240 mg 240 mg PO DAILY 07/20/18 10/20/23 11/05/21 11:00 capsule,extended release 24 hr (Cartia XT) digoxin 125 mcg (0.125 mg) tablet 125 mcg PO DAILY 08/12/19 10/20/23 11/05/21 11:00 furosemide 20 mg tablet (Lasix) 20 mg PO DAILY 08/12/19 10/20/23 11/05/21 11:00 acetaminophen 325 mg tablet 650 mg PO Q6 PRN mild pain (1-3) 10/02/21 10/20/23 Unknown or fever magnesium hydroxide 400 mg/5 mL 30 ml PO UD PRN Constipation 10/02/21 10/20/23 Unknown oral suspension (Milk of Magnesia) sodium phosphates 19 gram-7 118 ml MS UD PRN Constipation 10/02/21 10/20/23 Unknown gram/118 mL enema (Fleet Enema) apixaban 2.5 mg tablet (Eliquis) 2.5 mg PO BID 10/02/23 10/20/23 Unknown gabapentin 100 mg capsule 100 mg PO HS 10/02/23 10/20/23 Unknown metformin 500 mg tablet 500 mg PO BID 10/02/23 10/20/23 Unknown sertraline 25 mg tablet 25 mg PO HS 10/02/23 10/20/23 Unknown bisacodyl 10 mg rectal suppository 10 mg MS PM PRN Constipation 10/20/23 10/20/23 Unknown (Dulcolax (bisacodyl)) calcium carbonate 500 mg calcium 500 mg PO Q8H PRN Dyspepsia 10/20/23 10/20/23 Unknown (1,250 mg) chewable tablet levothyroxine 75 mcg tablet 75 mcg PO QAM 10/20/23 10/20/23 Unknown metoprolol succinate 50 mg 50 mg PO DAILY 10/20/23 10/20/23 Unknown tablet,extended release 24 hr morphine concentrate 20 mg/mL oral 10 mg PO Q6H PRN mod-severe pain 10/20/23 10/20/23 Unknown syringe (FOR ORAL USE ONLY) (4-10) omeprazole 20 mg tablet,delayed 20 mg PO BID 10/20/23 10/20/23 Unknown release polyethylene glycol 3350 17 gram 17 g PO HS 10/20/23 10/20/23 Unknown oral powder packet (Miralax) tramadol 50 mg tablet 50 mg PO BID 10/20/23 10/20/23 Unknown zinc gluconate 50 mg tablet 50 mg PO BID 10/20/23 10/20/23 Unknown Past Medical History Medical History (Updated 10/22/23 @ 13:28 by Roxanne Paulino PA-C) Adult failure to thrive Per records Atrial fibrillation dx 12/28/2017; has pacemaker ([employer], placed 2017) and on anticoagulation; 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 Dementia per records; 'confused although conversational' per 10/02/23 cardio note Past Family History Family History Son Family history of diabetes mellitus Past Surgical History Surgical History History of amputation Left 5th digit and Left 4th toe amputation per records; 11/06/2021 [facility]: GA: LMA #4 x 1 attempt (also regional anesthesia) S/P arterial stent BILAT LOWER LEGS S/P cardiac pacemaker procedure 2017; afib S/P cataract extraction and insertion of intraocular lens R/L S/P left knee arthroscopy Social History Smoking Status: Unknown if ever smoked substance use type: does not use Testing Laboratory Results 10/09/23= WBC: 8.45 H/H: 13.9/42.2 PLATELETS: 209 HGB A1C: 4.9 10/08/23= SODIUM: 138 POTASSIUM: 3.7 CHLORIDE: 100 CO2: 27.2 BUN: 13.0 CREATININE: 0.67 GLUCOSE: 85 TSH: 8.000 Electrocardiogram Date: 10/21/23 Demand pacemaker, interpretation is based on intrinsic rhythm Atrial fibrillation with premature ventricular or aberrantly conducted complexes Left axis deviation Low voltage QRS Septal infarct, age undetermined Possible lateral infarct, age undetermined Inferior infarct, age undetermined (EKG scanned under 11/23/18 for comparison; discussed with Dr. Jerome- due to nature of procedure- patient can proceed as scheduled but will be higher perioperative risk) Echocardiogram Date: 01/26/18 EF: 50-55% LV Function: normal Other Findings: + LVH (mild/concentric) and + diastolic dysfunction (Grade I ) LA moderately dilated. Right sided chambers were at least moderately dilated; RV function is mildly decreased At least moderate mitral annular calcification. Mild MV stenosis Moderate MR Moderate to severe TR Mild to moderate pulm HTN- estimated PASP 40-45mmHg Other Testing Pacemaker check 10/02/23= [employer] device. Implant date 07/02/2018. Battery longevity 5.2 years. Mode: VVI. (Per EP note 10/02/23- patient is not pacer dependent, u nderlying rhythm is atrial fibrillation)
[~2023-10-23 09:01] MED LIST changes: +BUPIVACAINE 0.25% PF 30 ML VIAL ONE; -BUPIVACAINE/EPINEPHRINE 0.5% MPF 1:200,000 30 ML VIAL ONE; -CEFAZOLIN 1000MG 1,000 MG/7.5 ML SYR IV SCH; -CEFAZOLIN 2000MG 2,000 MG/15 ML SYR IV SCH; +EPINEPHrine INJ 1 MG/ML AMP ONE; +TRANEXAMIC ACID 1,000 MG **IV Pre-op IV SCH; +ceFAZolin 2000MG 2,000 MG/15 ML SYR IV SCH
[2023-10-23] MEDS ORDERED: DEXTROSE 50% 50 ML SYRINGE IV ONE ×2 (09:36→09:38)
--- OUTSIDE RECORDS SUMMARY | 2023-10-23 10:23 | External Medical Summary | Continuity of Care Document ---
Author Name Unknown Organization [id number] Address [address] [place] [address] [phone] [id number] Date(s): 10/14/23 - 10/14/23 [facility] [address] [place] [id number] [address] Encounter Diagnosis Diabetic foot ulcer(Discharge Diagnosis) - 10/14/23 PAD (peripheral artery disease)(Discharge Diagnosis) - 10/14/23 Discharge Disposition: Home or Self Care Attending Physician: MD David, Juan Whalen Allergies, Adverse Reactions, Alerts Substance Reaction Severity Status amoxicillin rash Active Tape redness Active Medications acetaminophen Start: 01/01/19 11:23:00 EDT Start Date: 01/01/19 Status: Ordered Aplenzin Start: 10/14/23 10:02:00 EST Start Date: 10/14/23 Status: Ordered benzonatate 100 mg oral capsule Start: 10/14/23 10:02:00 EST Start Date: 10/14/23 Status: Ordered Cartia XT 240 mg/24 hours oral capsule, extended release Start: 11/20/18 9:14:00 EST, 1 cap, PO, Daily Start Date: 11/20/18 Status: Ordered clopidogrel 75 mg oral tablet Start: 10/01/21 11:44:00 EST, 1 tab, PO, Daily Start Date: 10/01/21 Status: Ordered digoxin Start: 10/01/21 11:44:00 EST, 125 mcg =, PO, Daily Start Date: 10/01/21 Status: Ordered Eliquis 2.5 mg oral tablet Start: 10/14/23 10:01:00 EST Start Date: 10/14/23 Status: Ordered famotidine 10 mg oral tablet Start: 10/01/21 11:45:00 EST, 1 tab, PO, Daily Start Date: 10/01/21 Status: Ordered furosemide Start: 10/01/21 11:45:00 EST, 40 mg =, PO, Daily Start Date: 10/01/21 Status: Ordered gabapentin 100 mg oral capsule Start: 10/01/21 11:45:00 EST, 1 cap, PO, bid Start Date: 10/01/21 Status: Ordered HYDROcodone Start: 09/26/21 13:20:00 EST, See Instructions, Refills: 0, 5-325mg 1 tab q 4 hrs Start Date: 09/26/21 Status: Ordered levothyroxine Start: 11/20/18 9:14:00 EST, 100 mcg =, Daily Start Date: 11/20/18 Status: Ordered loperamide Start: 10/01/21 11:46:00 EST, 2 mg = Start Date: 10/01/21 Status: Ordered metFORMIN 500 mg oral tablet Start: 11/20/18 9:14:00 EST, 1 tab, PO, Daily Start Date: 11/20/18 Status: Ordered metoprolol succinate (ER) Start: 11/20/18 9:15:00 EST, 150 mg =, PO, Daily Start Date: 11/20/18 Status: Ordered morphine 20 mg/mL oral concentrate Start: 10/14/23 10:01:00 EST, Refills: 0 Start Date: 10/14/23 Status: Ordered multivitamin Start: 10/01/21 11:47:00 EST, 1 tab, PO, Daily Start Date: 10/01/21 Status: Ordered omeprazole Start: 10/14/23 10:03:00 EST Start Date: 10/14/23 Status: Ordered omeprazole Start: 11/20/18 9:15:00 EST, 40 mg =, PO, Daily Start Date: 11/20/18 Status: Ordered Santyl 250 units/g topical ointment Start: 10/14/23 10:01:00 EST Start Date: 10/14/23 Status: Ordered traMADol 50 mg oral tablet Start: 10/14/23 10:01:00 EST Start Date: 10/14/23 Status: Ordered Xarelto 20 mg oral tablet Start: 09/11/21 14:08:00 EST Start Date: 09/11/21 Status: Ordered Mental Status 10/14/23 Barriers to Learning one year None evide nt Mandatory Health Literacy Documentation Yes Health Literacy Communication Barriers N ever Primary Language Cymro Problem List Condition Confirmation Course Effective Dates Status Health St atus Informant Diabetic foot ulcer Confirmed Active Left foot pain Confirmed Active S/P above knee amputation Confirmed Active Foot osteomyelitis, left Confirmed Active Pre-op exam Confirmed Active PAD (peripheral artery disease) Confirmed Active Diagnosis Diagnosis Type Effective Dates Health Status Cl inical Service Informant Diabetic foot ulcer Discharge Diagnosis 10/14/23 PAD (peripheral artery disease) Discharge Diagnosis 10/14/23 Procedures Procedure Date Related Diagnosis Body Site Status AKA - Above knee amputation 1 11/06/21 Completed Amputation lesser toe 2 10/09/21 C ompleted 1Left 2Left Fourth Toe Amputation Social History Social History Type Response Smoking Status Never smoked cigaret tanvi Sex Female Ortho Outpt Note * Lala Clement: PERFORM, MODIFY MD David, Juan Whalen: MODIFY Event Display: Ortho Outpt Note Authored Date: [id number] Name:DONTE COX Patient Number:[id number] :1940 Date of Service:10/14/2023 CHIEF COMPLAINT: right foot and leg ulcers; left above knee amputationDOS 11/06/2021 HPI: [id number] yearoldFemalewith dementia who presents today with her granddaughterforright foot and leg ulcers. Shehad a previous left above knee amputation. Her granddaughter notes she had a stroke. She is currently living at [facility]. Taking Eliquis. Her granddaughter notes she received IV antibioticslast month but is not currently on them. Granddaughter states that any imaging that was previously done should have been sent over. [facility] but states she does not think they do a very good job. Patient does not ambulate. She was seen by , cardiology, who referredthe patient to me.Granddaughter denies any past history with MRSA, bleeding, orblood clots. PHYSICAL EXAM: Focusing on the patient'srightlower extremity: Callus and necrosis 1cm lateral heel necrosis of the lateral first and most of medial and plantar second toe No palpable petal pulses Mild erythema appreciated in forefoot area Minimal swelling Diagnostic Results: The wound care information from [facility] white count of 8 on 10/09/23. They ordered ultrasound test of arteries. X-ray of her right foot on 09/08/2023 which was unremarkable. Right foot X-ray on 09/05/2023 question of hairline fracture at base of first distal phalanx,and arthritis. She had anterior doppler ultrasound on 08/26/2023. right ankle brachial index was 0.5. PLAN: - Patient's granddaughter was informed of all imaging and wound care results - Possiblevascular intervention and evaluation discussedbut this sounds like it is already beendone. - Surgical intervention discussed, but poor circulation may interfere. Granddaughter is in favor ofright knee amputation in order to relieve her pain. She notes thather brotherand herself hold power of health care attorney, and he would need to come in to sign the paper as she [place] out of [place]. Patient'editater was on the phone for the conversation as well. We talked about the options which include continued wound care, vascular interventionor surgery. I think given the limited blood flow and the ongoing necrosis that conservative measures are unlikely toresult in a positive outcome. She would likely benefit from amputation surgery. We talked about different levels including transmet BKA and AKA. In order topromote aone-time operationwith the least amount of complicationor risk of reoperation they like to proceed with a matchingright AKA. She will need to come offher blood thinners prior to surgery and we will need to coordinate that with medicine or cardiology. She will need to come back to get some paperwork doneonce we get surgery scheduled. Also will need son who is power of health care attorney to come in to sign the paperwork. Will plan on staying overnight at the hospital. - Continue progressing to activities as tolerated. - Follow-up with X-Ray and to havepowerof attorneysign consent forms ATTESTATION: Lala Morales, scribing for and in the presence of, Juan Hernandez, on this date,10/14/2023 09:51:54. Electronic Signature on File Electronically Reviewed/Signed by: Lala Clement Author Signature Dt/Tm:10/14/2023 10:39 AM Electronically Reviewed/Signed by: Juan Hernandez MD Cosigner Signature Dt/Tm: 10/14/2023 04:20 PM Division of Sports Medicine MR
--- NOTE | 2023-10-23 10:58 | History & Physical Bridge Note ---
Date of Service October 23, 2023 History & Physical Bridge Note I have examined the patient, reviewed the History & Physical and in the interval since the performance of the History & Physical I have noted the following changes of clinical significance: no changes noted
[2023-10-23] MEDS ORDERED: LIDOCAINE 2%/EPINEPHRINE 1:100,000 20ML INFIL ONE (11:25)
[2023-10-23] MEDS ORDERED: BUPIVACAINE 0.5 % 5 MG/1 ML MPF 30ML VIAL ONE (11:25)
--- NOTE | 2023-10-23 11:27 | XRay Report ---
XR femur RT 2V routine CLINICAL HISTORY: Diabetic foot ulcer, PAD; preop COMPARISON: None FINDINGS: No fracture or osseous lesion within the right femur is noted. There is no evidence for os teomyelitis within the right femur. Extensive vascular calcification is noted. Distal right SFA and a nterior tibial artery stents are incidentally noted. IMPRESSION: 1. No significant osseous abnormality within the right femur. 2. Extensive vascular calcification. Distal right SFA and anterior tibial artery stents. ACT 112: Negative or not required by law. Electronically signed by: Miguelangel Roche M.D. 10/23/2023 11:26 AM
[2023-10-23] MEDS ORDERED: fentaNYL citrate PF 100 MCG/2 ML VIAL ONE (11:39)
[2023-10-23] MEDS ORDERED: PHENYLEPHRINE 100MCG/ML 10ML SYR IV ONE (11:40)
[2023-10-23] MEDS ORDERED: PROPOFOL IV EMULSION 10 MG/ML 20 ML VIAL IV ONE (11:40)
[2023-10-23] MEDS ORDERED: KETAMINE HCL 10MG/ML SYR ONE (11:40)
[2023-10-23] MEDS ORDERED: LIDOCAINE 2% 2 ML VIAL/AMP(20MG/ML) INFIL ONE (11:40)
[2023-10-23] MEDS ORDERED: ePHEDrine sulfate 50 MG/ML AMP IV PRN (12:08)
[2023-10-23] MEDS ORDERED: ATROPINE SULFATE 0.1 MG/ML 10ML SYR IV PRN (12:08)
[2023-10-23] MEDS ORDERED: fentaNYL citrate PF 100 MCG/2 ML VIAL IV PRN (12:08)
[2023-10-23] MEDS ORDERED: ONDANSETRON INJ 2 MG/ML 2 ML VIAL IV PRN ×2 (12:08→15:28)
[2023-10-23] MEDS ORDERED: ONDANSETRON INJ 2 MG/ML 2 ML VIAL ONE (12:36)
--- NOTE | 2023-10-23 13:16 | Fluoroscopy Report ---
FL knee RT 1 or 2V CLINICAL HISTORY: RIGHT ABOVE KNEE AMPUTATION COMPARISON STUDY: Right femur radiographs 10/23/2023 FLUOROSCOPY TIME: 3.2 seconds FLUOROSCOPY IMAGES: 2 EXPOSURE DOSE: 0.12 mGy FINDINGS: Arterial calcifications with right superficial femoral arterial stent graft. The first imag e demonstrates an orthopedic device projected over the distal femoral diaphysis. The second image dem onstrates above the amputation of the distal femur. No unexpected opaque foreign bodies. IMPRESSION: Fluoroscopic assistance as above. ACT 112: Negative or not required by law. Electronically signed by: Florentino Chester M.D. 10/23/2023 1:15 PM
--- NOTE | 2023-10-23 13:53 | Operative Report ---
Post Operative Report Pre & Post Diagnosis Operation Date: 10/23/23 10:35 Pre-Op Diagnosis: Diabetic right foot ulcer and peripheral artery disease Post-Op Diagnosis: Diabetic right foot ulcer and peripheral artery disease I identified the patient and participated in the time-out.: Yes Procedure Operation Date: 10/23/23 10:35 Actual Procedures p Right Above Knee Amputation(Right) - Juan Hernandez MD Surgeon Juan Hernandez MD Armhole Feller Handstitching Machine Yusuf Lacy MD; Melissa Spangler PA - C, Tyson Mckeon MS II Estimated Blood Loss 10 Findings Consistent with Post-Op Diagnosis Same as postoperative diagnosis. Specimens None Description of Procedure Please see detailed operative note. I attest to the content of the Intraoperative Record and any orders documented therein. Any exceptions are noted below.
--- NOTE | 2023-10-23 14:00 | Operative Report ---
Post Operative Report Pre & Post Diagnosis Operation Date: 10/23/23 10:35 Pre-Op Diagnosis: Diabetic right foot ulcer and peripheral artery disease Post-Op Diagnosis: Diabetic right foot ulcer and peripheral artery disease I identified the patient and participated in the time-out.: Yes Procedure Operation Date: 10/23/23 10:35 Actual Procedures p Right Above Knee Amputation(Right) - Juan Hernandez MD Surgeon Juan Hernandez MD Gas Meter Reader Yusuf Lacy MD; Melissa Spangler PA - C, Tyson Mckeon, MS II Estimated Blood Loss 10 Findings Consistent with Post-Op Diagnosis Specimens Amputated right leg Drains Hemovac x 1 Anesthesia Type General Regional Complications none Disposition Accompanied Patient To Recovery: No Disposition: Recovery Room Indications Dionne is 83 and has peripheral vascular disease. She is status post a left above-knee amputation last year. She now has ischemic necrosis of her right foot. This is not unreconstructable from vascular perspective. Options discussed with family. Things were going well with wound care. She is suffering from dementia. The family has elected to proceed with an above-knee amputation. Description of Procedure Informed consent. Patient identified. The family identified the operative site as the right above-knee amputation. I marked with my initials. A preop surgical timeout performed. Preop dose of IV antibiotics and TXA given. Positioned supine on the OR table. The right leg was prepped and draped in the usual sterile fashion. The right ankle and foot were not prepped but were excluded from the field with a stocking it. DVT prophylaxis was not indicated/possible. Her blood thinner was held 48 hours prior to [facility] terile tourniquet applied to the thigh. The limb was exsanguinated from the calf to the thigh and then the tourniquet inflated. The level of the amputation was selected to match the contralateral side about 10 cm above the joint line and about 6 cm above the superior pole of the patella. [place] anterior and posterior flaps were fashioned. The skin was incised. Electrocautery was utilized down through the skin and subcutaneous tissues. The AP width of the leg at this level was 12 cm and 6 cm anterior and posterior flaps were created. Electrocautery was utilized down to the skin and subcutaneous tissues and then through the extensor mechanism and associated medial and lateral musculature down to the level of the bone. Fluoroscopy was utilized to help confirm and identify the position of the amputation. This was completed with An oscillatingsaw. The medial and lateral intermuscular septum's were divided. The femoral artery and vein were identified dissected out. Did not encounter stent. The vein was doubly ligated proximally single distally and transected. The artery was triple ligated proximally and single distally and divided. The sciatic nerve was identified posteriorly pulled into the wound cut and allowed to retract. The remainder of the posterior musculature was divided. 0 silk ties were utilized. The limb was then removed. The end of the bone was beveled with a rongeur. Irrigation performed and tourniquet let down with no significant bleeding. There were few small spots posteriorly which were electrocauterized. I then took the quad tendon and tied it down to the superficial fascia of the posterior leg covering over the above-knee femoral stump. #1 Vicryl's were utilized to do this to reapproximate along the remainder of the fascial layer. A Hemovac drain was inserted deep. Brought out laterally. The skin was then closed in layers with 0 and 2-0 Vicryl and 3-0 nylon sutures on the skin. Leg was cleaned with wet and dry sponges and soft sterile dressing was applied Xeroform 4 x 4's ABD soft wrap and an Gian wrap. Prior to applying the dressing 1% lidocaine and half percent Marcaine with epinephrine was injected into the skin and subcutaneous tissues. Her tissue appeared to be healthy at this level. There was minimal punctate bleeding. Her muscles appeared to be beefy red but were notably atrophied. She was awakened from anesthesia without difficulty and taken to the recovery room in stable condition. The resected limb was sent for specimen counts were correct blood loss was 10 cc. No complications. At the conclusion the operation I spoke to her son informed of my findings. The plan is to admit her to the hospital. Begin her anticoagulation in the morning. Manage her pain. Consult medicine. She will be sent back to her nursing facility when medically stable. I attest to the content of the Intraoperative Record and any orders documented therein. Any exceptions are noted below.
--- NOTE | 2023-10-23 14:42 | Anesthesiology Progress Note ---
Date of Service October 23, 2023 Anesthesia Post Procedure Vital Signs Vital Signs: Temp Pulse Resp BP Pulse Ox O2 Del Method O2 Flow Rate 10/23/23 14:30 70 14 130/50 L 91 Room Air 10/23/23 14:20 74 16 135/54 L 93 Room Air 10/23/23 14:10 72 19 129/52 L 93 Room Air 10/23/23 14:00 69 18 134/57 L 98 Oxymask 10 10/23/23 13:50 36.4 C L 71 19 134/52 L 99 Oxymask 10 10/23/23 09:50 36.5 C 72 20 130/61 96 Room Air Transfer of Care Handoff Completed per policy Notes Mental Status: alert / awake / arousable Patient Amnestic to Procedure: Yes Nausea / Vomiting: adequately controlled Pain: adequately controlled Airway Patency, RR, SpO2: stable & adequate BP & HR: stable & adequate Hydration State: stable & adequate Anesthetic Complications: no major complications apparent and Pt Satisfied with anesthetic care
[2023-10-23] MEDS ORDERED: NALOXONE HCL 0.4 MG/1 ML VIAL/CARP IV PRN (15:28)
[2023-10-23] MEDS ORDERED: MAGNESIUM HYDROXIDE SUSP 30 ML UDC PO PRN (15:28)
[2023-10-23] MEDS ORDERED: HYDROmorphone INJ 0.5 MG/0.5 ML SYR IV PRN ×2 (15:28→21:13)
[2023-10-23] MEDS ORDERED: MoRPHine SULFATE 10 MG/0.5 ML UDP PO PRN ×2 (15:28→21:13)
[2023-10-23] MEDS ORDERED: bisacodyL 10 MG SUPP PR PRN (15:28)
[2023-10-23] MEDS ORDERED: HYDROCODONE/ACETAMOPHEN 5/325MG TAB PO PRN (15:28)
[2023-10-23] MEDS ORDERED: ACETAMINOPHEN 325 MG TAB PO PRN (15:28)
[2023-10-23] MEDS ORDERED: SOD PHOSPHATE/SOD BIPHOSPHATE ENEMA 132 ML BTL PR PRN (15:28)
[2023-10-23] MEDS ORDERED: CALCIUM CARBONATE 500 MG CHEWABLE TAB PO PRN (15:41)
--- NOTE | 2023-10-23 15:45 | Hospitalist Consultation ---
Date of Consultation October 23, 2023 Assessment & Plan (1) Above knee amputation of right lower extremity: Pain/VTE/bowel management per primary orthopedic team Reduced tramadol in half along with PRN medications given her confusion although unclear whether this is acute or chronic bu from reading previous notes she does not appear far off her baseline. (2) Afib: Currently appears in regular rhythm although on review of prior EKG her a. fib appears relatively regular due to occasional pacing Irregardless her rate is fine. Per prior cardiology note she is in permanent a. fib. At some point she appears to have been switched from Xarelto to Eliquis for anticoagulation - lower dose (2.5mg PO BID) is appropriate for her weight and age - restart when ok from orthopedic perspective. Continue metoprolol, digoxin and diltiazem for rate control (3) DM type 2 (diabetes mellitus, type 2): Historically fingerstick glucose measurements do not match with venous draws Therefore no need for BSGs or sliding scale insulin She does not clearly need metformin however suggest this is addressed by her primary care physician (4) Chronic kidney disease, stage 3a: Post op labs tomorrow. No pre-op labs available to review in EHR. (5) Peripheral arterial disease: Reason for above knee amputations (6) GERD (gastroesophageal reflux disease): Continue pantoprazole 40mg PO BID (7) Hypothyroid: Continue levothyroxine. No need for inpatient TSH measurement - should be managed as outpatient Plan Thank you for the consult, we will continue to follow the patient. History of Present Illness Reason for Consultation: Post op medical management Attending Physician: Juan Hernandez MD History of Present Illness Dionne Marinelli is an 83-year-old female POD#0 right above-knee amputation performed by Dr. Hernandez earlier today. Estimated blood loss 10 mL. Patient appears tired. Not orientated to time, place or person. Unable to give me any history. On review of her outpatient notes in Sep 2023 she was seen in the electrophysiology office and could provide little history and was confused however conversational. Allergies Allergy/AdvReac Type Severity Reaction Status Date / Time adhesive tape Allergy Intermediate Rash Verified 10/23/23 09:53 amoxicillin Allergy Intermediate Rash Verified 10/23/23 09:53 latex Allergy Unknown contact Verified 10/23/23 09:53 dermatitis per [facility] facility records Home Medications Medication Instructions Recorded Confirmed Type diltiazem HCl 240 mg 240 mg PO DAILY 07/20/18 10/23/23 History capsule,extended release 24 hr (Cartia XT) digoxin 125 mcg (0.125 mg) tablet 125 mcg PO DAILY 08/12/19 10/23/23 History furosemide 20 mg tablet (Lasix) 20 mg PO DAILY 08/12/19 10/23/23 History acetaminophen 325 mg tablet 650 mg PO Q6 PRN mild pain (1-3) 10/02/21 10/23/23 History or fever magnesium hydroxide 400 mg/5 mL 30 ml PO UD PRN Constipation 10/02/21 10/23/23 History oral suspension (Milk of Magnesia) sodium phosphates 19 gram-7 118 ml OK UD PRN Constipation 10/02/21 10/23/23 History gram/118 mL enema (Fleet Enema) apixaban 2.5 mg tablet (Eliquis) 2.5 mg PO BID 10/02/23 10/23/23 History gabapentin 100 mg capsule 100 mg PO HS 10/02/23 10/23/23 History metformin 500 mg tablet 500 mg PO BID 10/02/23 10/23/23 History sertraline 25 mg tablet 25 mg PO HS 10/02/23 10/23/23 History bisacodyl 10 mg rectal suppository 10 mg OK PM PRN Constipation 10/20/23 10/23/23 History (Dulcolax (bisacodyl)) calcium carbonate 500 mg calcium 500 mg PO Q8H PRN Dyspepsia 10/20/23 10/23/23 History (1,250 mg) chewable tablet levothyroxine 75 mcg tablet 75 mcg PO QAM 10/20/23 10/23/23 History metoprolol succinate 50 mg 50 mg PO DAILY 10/20/23 10/23/23 History tablet,extended release 24 hr morphine concentrate 20 mg/mL oral 10 mg PO Q6H PRN mod-severe pain 10/20/23 10/23/23 History syringe (FOR ORAL USE ONLY) (4-10) omeprazole 20 mg tablet,delayed 20 mg PO BID 10/20/23 10/23/23 History release polyethylene glycol 3350 17 gram 17 g PO HS 10/20/23 10/23/23 History oral powder packet (Miralax) tramadol 50 mg tablet 50 mg PO BID 10/20/23 10/23/23 History zinc gluconate 50 mg tablet 50 mg PO BID 10/20/23 10/23/23 History Patient History Medical History (Updated 10/23/23 @ 18:49 by Marques Carbone MD) Pain pt taking pain medication (morphine concentrate and tramadol) History of left above knee amputation 11/06/2021 [facility]: [place]: LMA #4 x 1 attempt (also regional anesthesia) Iron deficiency anemia PVD (peripheral vascular disease) Hyperlipemia Chronic kidney disease, stage 3 Adult failure to thrive Per records Senile degeneration of brain Dementia per records; 'confused although conversational' per 10/02/23 cardio note Cardiac pacemaker in situ [employer]; placed for AFib 2017 (single chamber, VVI); last checked 10/02/23 [facility] GERD (gastroesophageal reflux disease) On anticoagulant therapy for hx AFib and severe PAD Atrial fibrillation dx 12/28/2017; has pacemaker ([employer], placed 2017) and on anticoagulation; follows with [facility] Cardio Mitral valve disorder Moderate mitral insufficiency and mild mitral stenosis per 12/2017 echo. 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13, ONE TIME INCIDENT Pressure ulcer Diabetic neuropathy PAD (peripheral artery disease) S/p angioplasty to left GIL/DPA 08/2018; S/p bilateral LE intervention (details unknown); S/p angioplasty x 3 to left LE 10/22/21; L AKA 11/06/2021 [facility] Hypothyroid Diabetes mellitus On Metformin Surgical History History of amputation Left 5th digit and Left 4th toe amputation per records; 11/06/2021 [facility]: [place]: LMA #4 x 1 attempt (also regional anesthesia) S/P left knee arthroscopy S/P arterial stent BILAT LOWER LEGS S/P cataract extraction and insertion of intraocular lens R/L S/P cardiac pacemaker procedure 2017; afib Family History Son Family history of diabetes mellitus Social History Smoking Status: Unknown if ever smoked Tobacco Cessation Education Requested by Patient: No Preferred Language: Citizen Of [place] Communication Ability: unknown Communication Ability Comment: unknown; resident at [facility] Visual Impairment: Limited Hearing Ability: Normal Enterprise Resource Planner Required: No Beliefs That Will Affect Care: None marital status: / Current Living Situation: Shelter Current Living Situation Comment: [facility] current occupational status: retired How many Children do You have: 2 Other Information That Helps Us Care for You: No other: HAS A WALKER AND CANE THAT SHE DOESN'T USE OFTEN Feels Safe at Home: Yes Diet: diabetic and low salt during the past year weight has: remained stable Assistive Devices: Wheelchair Review of Systems Review of Systems: Unobtainable due to cognitive status Physical Exam Constitutional: well developed; + not well nourished and no acute distress Eyes: PERRL, conjunctivae normal, anicteric sclerae ENMT: external ear and nose normal, oropharynx normal Respiratory: normal respiratory effort, lungs clear to auscultation Cardiovascular: Rate/Rhythm: regular rate and regular rhythm Heart Sounds: + abnormal S2 (splitting loudest in apex) Vessels: radial pulses present Gastrointestinal (Abdomen): normal bowel sounds, soft, nontender, no hepatosplenomegaly Skin: no rashes, warm and dry Neurologic: moves all extremities, awake and + confused Psychiatric: Orientation: alert; + not oriented x 3 Eye Contact: + poor eye contact Motor Behavior: + psychomotor retardation; no psychomotor agitation Affect: euthymic affect Thought Process: + incoherent thought process Results & Data Results & Data Vital Signs (Past 12 Hours) Vital Signs Temp Pulse Pulse Resp BP Pulse Ox O2 Del Method 10/23/23 15:30 37 C 77 17 119/74 94 Room Air 10/23/23 15:00 76 12 119/59 L 94 Room Air 10/23/23 14:50 74 16 123/60 99 Nasal Cannula 10/23/23 14:40 37 C 79 16 126/51 L 92 Room Air 10/23/23 14:30 70 14 130/50 L 91 Room Air 10/23/23 14:20 74 16 135/54 L 93 Room Air 10/23/23 14:10 72 19 129/52 L 93 Room Air 10/23/23 14:00 69 18 134/57 L 98 Oxymask 10/23/23 13:50 36.4 C L 71 19 134/52 L 99 Oxymask 10/23/23 09:50 36.5 C 72 20 130/61 96 Room Air O2 Flow Rate 10/23/23 15:30 10/23/23 15:00 10/23/23 14:50 2 10/23/23 14:40 10/23/23 14:30 10/23/23 14:20 10/23/23 14:10 10/23/23 14:00 10 10/23/23 13:50 10 10/23/23 09:50 PG Care Time/CCT Total # of Minutes Spent Total Time Spent with Patient: Total time spent is greater than 50% in coordination of care (as documented) at patient's floor/unit and/or counseling patient: Coding Level of Care Code 11639 IN/OBS CONSULT LVL 4,60M Diagnoses Above knee amputation of right lower extremity S78.111A Permanent atrial fibrillation I48.21 Atrial fibrillation type: permanent Type 2 diabetes mellitus without complication, without long-term current use of insulin E11.9 Diabetes mellitus complication status: without complication Diabetes mellitus watermelon harvesting supervisor insulin use: without half-way use Chronic kidney disease, stage 3a N18.3 Peripheral arterial disease I73.9 Gastroesophageal reflux disease, esophagitis presence not specified K21.9 Esophagitis presence: esophagitis presence not specified Acquired hypothyroidism E03.9 Hypothyroidism type: acquired (2) Afib Atrial fibrillation type: permanent Qualified Code(s): I48.21 - Permanent atrial fibrillation (3) DM type 2 (diabetes mellitus, type 2) Diabetes mellitus complication status: without complication Diabetes mellitus watermelon harvesting supervisor insulin use: without watermelon harvesting supervisor use Qualified Code(s): E11.9 - Type 2 diabetes mellitus without complications (6) GERD (gastroesophageal reflux disease) Esophagitis presence: esophagitis presence not specified Qualified Code(s): K21.9 - Gastro-esophageal reflux disease without esophagitis (7) Hypothyroid Hypothyroidism type: acquired Qualified Code(s): E03.9 - Hypothyroidism, unspecified
[2023-10-23] MEDS: SODIUM CHLORIDE 0.9% 1,000 ML IV SCH (15:49)
[2023-10-23] MEDS: ceFAZolin 1000MG 1,000 MG/7.5 ML SYR IV SCH (19:57)
[2023-10-23] MEDS: SERTRALINE HCL 50 MG TABLET PO SCH (20:00)
[2023-10-23] MEDS: ZINC SULFATE 220 MG CAPSULE PO SCH (20:00)
[2023-10-23] MEDS ORDERED: TRANEXAMIC ACID / 0.7% NACL 1,000 MG/100 ML BAG IV SCH (20:00)
[2023-10-23] MEDS: PANTOprazole 40 MG TAB PO SCH (20:00)
[2023-10-23] MEDS: GABAPENTIN 100 MG CAP PO SCH (20:01)
[2023-10-23] MEDS: POLYETHYLENE (MIRALAX) 17 GM PACK PO SCH ×2 (20:01→22:08)
[2023-10-23] MEDS ORDERED: traMADol HCL 50 MG TABLET PO SCH (21:00)
[2023-10-24] MEDS: SODIUM CHLORIDE 0.9% 1,000 ML IV SCH (01:05)
[2023-10-24] MEDS: ceFAZolin 1000MG 1,000 MG/7.5 ML SYR IV SCH (03:24)
[2023-10-24] MEDS: LEVOTHYROXINE SODIUM 75 MCG TABLET PO SCH (05:37)
[2023-10-24] MEDS ORDERED: SODIUM CHLORIDE 0.9% 1,000 ML IV SCH (06:30)
[2023-10-24 07:40] LABS: Hematocrit (blood only) 34.1 % (37.0-47.0); Hemoglobin 11.6 g/dl (12.0-16.0); Mean Corpuscular Volume 88.1 fL (80.0-100.0); Mean Platelet Volume 10.3 fL (9.4-12.4); Platelet Count 219 K/uL (130-400); RDW Coefficient of Variation 13.7 % (11.5-14.5); RDW Standard Deviation 43.9 fL (36.4-46.3); Red Blood Count 3.87 M/uL (4.20-5.40); White Blood Count 9.73 K/ul (4.8-10.8)
[2023-10-24 08:04] LABS: BUN Creatinine Ratio 21.7 (10-20); Calcium 8.7 mg/dl (8.6-10.3); Creatinine Clr Calc Pharmacy 63.2 ml/min; Est GFR (African American) 106.6 ml/min; Potassium 3.4 mmol/L (3.5-5.1)
[2023-10-24] MEDS: PANTOprazole 40 MG TAB PO SCH ×2 (08:19→20:44)
[2023-10-24] MEDS: traMADol HCL 50 MG TABLET PO SCH ×2 (08:19→20:43)
[2023-10-24] MEDS: METOPROLOL SUCC 50MG EXT REL TAB PO SCH (08:20)
[2023-10-24] MEDS: APIXABAN 2.5 MG TAB PO SCH ×2 (08:20→20:44)
[2023-10-24] MEDS: MULTIVITAMIN TAB PO SCH (08:20)
[2023-10-24] MEDS: FUROSEMIDE 20 MG TAB PO SCH (08:20)
[2023-10-24] MEDS: dilTIAZem HCL 240 MG CAPCR PO SCH (08:20)
[2023-10-24] MEDS: ZINC SULFATE 220 MG CAPSULE PO SCH ×2 (08:20→20:44)
[2023-10-24] MEDS ORDERED: POTASSIUM CHLORIDE CRTAB 20 MEQ TABCR PO STA (08:38)
--- NOTE | 2023-10-24 10:45 | Orthopedic Progress Note ---
Date of Service October 24, 2023 Assessment & Plan (1) Above knee amputation of right lower extremity: Plan: Patient is postop day 1 status post above-knee amputation with Dr. Hernandez on 10/23/2023. Patient does not appear to be in any distress. She is alert to self this seems to be baseline for her. She has very little drainage from the Hemovac this was pulled. Her dressing is intact negative for any soiling. She completed her post op antibiotic and restarted her Eliquis. She did have urinary retention and had a catheter placed last night by hospitalist. Will discuss further with Dr. Hernandez in regards to [facility] . Admission and Anticipated Discharge Date Admission Date: October 23, 2023 Subjective Patient is an 83-year-old female who is a known patient of Dr. Hernandez. She is postop day 1 status post above-knee amputation on 10/23/2023. She was seen bedside this a.m. nursing was present. She is lethargic. She does not report any pain when asked. Nursing reports that she was having urinary retention and they had to place a catheter. Nursing reports she had very little drainage in her Hemovac. Review of Systems Review of Systems: Unobtainable due to cognitive status Physical Exam Physical Exam: General: Patient is alert to person lethargic Integumentary/musculoskeletal: Attention to the right AKA. Dressing is intact negative for any soiling. Hemovac is in place this was drained has approximately 10 cc of blood. This was consistent from overnight. Hemovac was pulled. Patient did have some discomfort during this being pulled. She was able to tolerate it. AKA was placed on pillow. Catheter is in place. Results & Data Vital Signs (Past 12 Hours) Vital Signs Temp Pulse Resp BP Pulse Ox O2 Del Method 10/24/23 07:02 36.5 C 83 16 159/74 H 96 Room Air 10/24/23 03:22 36.6 C 84 16 155/84 H 95 Room Air 10/23/23 23:05 36.9 C 80 16 151/83 H 97 Room Air Laboratory Results 10/24/23 10/23/23 10/23/23 Range/Units 07:13 20:23 16:57 WBC 9.73 (4.8-10.8) K/ul RBC 3.87 L (4.20-5.40) M/uL Hgb 11.6 L (12.0-16.0) g/dl Hct 34.1 L (37.0-47.0) % MCV 88.1 (80.0-100.0) fL MCH 30.0 (25.0-34.0) pg MCHC 34.0 (32.0-36.0) g/dL RDW Std Deviation 43.9 (36.4-46.3) fL RDW Coeff of Lucas 13.7 (11.5-14.5) % Plt Count 219 (130-400) K/uL MPV 10.3 (9.4-12.4) fL Sodium 137 (136-145) mmol/L Potassium 3.4 L (3.5-5.1) mmol/L Chloride 103 (98-107) mmol/L Carbon Dioxide 25 (21-32) mmol/L Anion Gap 9 (3-11) BUN 10 (6-23) mg/dl Creatinine 0.46 L (0.6-1.2) mg/dl Est Cr Clr Drug Dosing 63.2 ml/min Est GFR ( Amer) 106.6 ml/min Est GFR (Non-Af Amer) 92.0 ml/min BUN/Creatinine Ratio 21.7 H (10-20) Glucose 114 H (70-99(Fasting)) mg/dl POC Glucose 166 H 128 H (70-99) mg/dl Calcium 8.7 (8.6-10.3) mg/dl Blood Type Antibody Screen 10/23/23 10/23/23 Range/Units 14:12 09:26 WBC (4.8-10.8) K/ul RBC (4.20-5.40) M/uL Hgb (12.0-16.0) g/dl Hct (37.0-47.0) % MCV (80.0-100.0) fL MCH (25.0-34.0) pg MCHC (32.0-36.0) g/dL RDW Std Deviation (36.4-46.3) fL RDW Coeff of Lucas (11.5-14.5) % Plt Count (130-400) K/uL MPV (9.4-12.4) fL Sodium (136-145) mmol/L Potassium (3.5-5.1) mmol/L Chloride (98-107) mmol/L Carbon Dioxide (21-32) mmol/L Anion Gap (3-11) BUN (6-23) mg/dl Creatinine (0.6-1.2) mg/dl Est Cr Clr Drug Dosing ml/min Est GFR ( Amer) ml/min Est GFR (Non-Af Amer) ml/min BUN/Creatinine Ratio (10-20) Glucose (70-99(Fasting)) mg/dl POC Glucose 103 H (70-99) mg/dl Calcium (8.6-10.3) mg/dl Blood Type B Positive Antibody Screen NEGATIVE Intake & Output 10/22/23 10/23/23 10/24/23 10/25/23 06:59 06:59 06:59 06:59 Intake Total 1976.667 / 1975.667 Output Total 370 / 370 Balance 1606.667 / 1606.667 Weight 43.2 kg Diagnostic Findings Femur X-Ray 10/23/23 06:00 XR femur RT 2V routine CLINICAL HISTORY: Diabetic foot ulcer, PAD; preop COMPARISON: None FINDINGS: No fracture or osseous lesion within the right femur is noted. There is no evidence for osteomyelitis within the right femur. Extensive vascular calcification is noted. Distal right SFA and anterior tibial artery stents are incidentally noted. IMPRESSION: 1. No significant osseous abnormality within the right femur. 2. Extensive vascular calcification. Distal right SFA and anterior tibial artery stents. ACT 112: Negative or not required by law. Electronically signed by: Miguelangel Roche M.D. 10/23/2023 11:26 AM Knee X-Ray 10/23/23 10:35 FL knee RT 1 or 2V CLINICAL HISTORY: RIGHT ABOVE KNEE AMPUTATION COMPARISON STUDY: Right femur radiographs 10/23/2023 FLUOROSCOPY TIME: 3.2 seconds FLUOROSCOPY IMAGES: 2 EXPOSURE DOSE: 0.12 mGy FINDINGS: Arterial calcifications with right superficial femoral arterial stent graft. The first image demonstrates an orthopedic device projected over the distal femoral diaphysis. The second image demonstrates above the amputation of the distal femur. No unexpected opaque foreign bodies. IMPRESSION: Fluoroscopic assistance as above. ACT 112: Negative or not required by law. Electronically signed by: Florentino Chester M.D. 10/23/2023 1:15 PM
--- NOTE | 2023-10-24 10:49 | Hospitalist Progress Note ---
Date of Service October 24, 2023 Assessment & Plan (1) Above knee amputation of right lower extremity: Plan: Pain/VTE/bowel management per primary orthopedic team -Martinez placed overnight for retention, okay to remove martinez today and see if she voids K 3.4 --> PO replacement ordered, per RN pt not following commands to take medications this morning (2) Afib: Plan: Per prior cardiology note she is in permanent a. fib. At some point she appears to have been switched from Xarelto to Eliquis for anticoagulation - lower dose (2.5mg PO BID) is appropriate for her weight and age - restarted 10/24 Continue metoprolol, digoxin and diltiazem for rate control (3) DM type 2 (diabetes mellitus, type 2): Plan: No on insulin at baseline. Do not need to continue ACHS checks here. She does not clearly need metformin however suggest this is addressed by her primary care physician (4) Chronic kidney disease, stage 3a: Plan: Creatinine 0.46 GFR 92 (5) Peripheral arterial disease: Plan: Type 2 diabetes w diabetic PAD Reason for above knee amputations (6) GERD (gastroesophageal reflux disease): Plan: Continue pantoprazole 40mg PO BID (7) Hypothyroid: Plan: Continue levothyroxine. No need for inpatient TSH measurement - should be managed as outpatient Plan Dispo: medically stable, agreeable to discharge if not retaining urine. Per case management [facility] can accept patient tomorrow Admission and Anticipated Discharge Date Admission Date: October 23, 2023 Subjective Patient seen sitting up in bed, family at besides. Patient alert and conversing but nonsenical. Per family this is baseline. Patient denies pain. Per nursing, pt required martinez overnight for retention and has not been following commands to take pills. 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 Review of Systems Review of Systems: Unobtainable due to cognitive status Physical Exam Physical Exam: General: NAD, VS as above HEENT: poor dentition Resp: normal respiratory effort, lungs clear to auscultation CV: RRR, no murmur, Abd: normal bowel sounds, non tender, no hepatosplenomegaly Extremities: b/l above the knee amputations, dressing and javier wrap over right stump. : martinez in place Neuro: Alert but not oriented. Skin: intact, no lesions noted Results & Data Results & Data Vital Signs (Past 12 Hours) Vital Signs Temp Pulse Resp BP Pulse Ox O2 Del Method 10/24/23 07:02 36.5 C 83 16 159/74 H 96 Room Air 10/24/23 03:22 36.6 C 84 16 155/84 H 95 Room Air 10/23/23 23:05 36.9 C 80 16 151/83 H 97 Room Air Laboratory Results CBC and chemistry reviewed PG Care Time/CCT Total # of Minutes Spent Total Time Spent with Patient: Total time spent is greater than 50% in coordination of care (as documented) at patient's floor/unit and/or counseling patient: Coding Level of Care Code 25620 SUB INP/OBS CARE 2/35MIN Diagnoses Above knee amputation of right lower extremity S78.111A Permanent atrial fibrillation I48.21 Atrial fibrillation type: permanent Type 2 diabetes mellitus without complication, without long-term current use of insulin E11.9 Diabetes mellitus complication status: without complication Diabetes mellitus medical terminologist insulin use: without medical terminologist use Chronic kidney disease, stage 3a N18.3 Peripheral arterial disease I73.9 Gastroesophageal reflux disease, esophagitis presence not specified K21.9 Esophagitis presence: esophagitis presence not specified Acquired hypothyroidism E03.9 Hypothyroidism type: acquired (2) Afib Atrial fibrillation type: permanent Qualified Code(s): I48.21 - Permanent atrial fibrillation (3) DM type 2 (diabetes mellitus, type 2) Diabetes mellitus complication status: without complication Diabetes mellitus chcf insulin use: without chcf use Qualified Code(s): E11.9 - Type 2 diabetes mellitus without complications (6) GERD (gastroesophageal reflux disease) Esophagitis presence: esophagitis presence not specified Qualified Code(s): K21.9 - Gastro-esophageal reflux disease without esophagitis (7) Hypothyroid Hypothyroidism type: acquired Qualified Code(s): E03.9 - Hypothyroidism, unspecified
[2023-10-24] MEDS: DIGOXIN 0.125 MG TAB PO SCH (16:07)
[2023-10-24] MEDS: SERTRALINE HCL 50 MG TABLET PO SCH (20:43)
[2023-10-24] MEDS: POLYETHYLENE (MIRALAX) 17 GM PACK PO SCH (20:44)
[2023-10-24] MEDS: GABAPENTIN 100 MG CAP PO SCH (20:44)
[2023-10-25] MEDS: LEVOTHYROXINE SODIUM 75 MCG TABLET PO SCH (05:42)
[2023-10-25] MEDS: FUROSEMIDE 20 MG TAB PO SCH (09:42)
[2023-10-25] MEDS: traMADol HCL 50 MG TABLET PO SCH ×2 (09:42→20:55)
[2023-10-25] MEDS: METOPROLOL SUCC 50MG EXT REL TAB PO SCH (09:42)
[2023-10-25] MEDS: APIXABAN 2.5 MG TAB PO SCH ×2 (09:43→20:55)
[2023-10-25] MEDS: ZINC SULFATE 220 MG CAPSULE PO SCH ×2 (09:43→20:55)
[2023-10-25] MEDS: PANTOprazole 40 MG TAB PO SCH ×2 (09:43→20:55)
[2023-10-25] MEDS: MULTIVITAMIN TAB PO SCH (09:43)
[2023-10-25] MEDS: dilTIAZem HCL 240 MG CAPCR PO SCH (09:43)
--- NOTE | 2023-10-25 12:29 | Orthopedic Progress Note ---
Date of Service October 25, 2023 Assessment & Plan (1) Above knee amputation of right lower extremity: Plan: She is stable. Plan for discharge back to nursing facility when transport available. She has voided since the catheter has been pulled. 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 Physical Exam Physical Exam: Her dressing is clean dry and intact. Results & Data Vital Signs (Past 12 Hours) Vital Signs Temp Pulse Pulse Resp BP BP Pulse Ox 10/25/23 11:01 36.7 C 76 79 14 141/80 H 163/87 H 95 10/25/23 09:45 10/25/23 07:13 36.7 C 79 14 141/80 H 95 O2 Del Method 10/25/23 11:01 10/25/23 09:45 Room Air 10/25/23 07:13 Room Air
--- NOTE | 2023-10-25 15:35 | Hospitalist Progress Note ---
Date of Service October 25, 2023 Assessment & Plan (1) Above knee amputation of right lower extremity: Plan: S/p R AKA 10/23/23. Hx L AKA Pain/VTE/bowel management per primary orthopedic team Abdi had been placed for retention but since removal has voided successfully (incontinent) (2) Afib: Plan: Per prior cardiology note she is in permanent a. fib. At some point she appears to have been switched from Xarelto to Eliquis for anticoagulation - lower dose (2.5mg PO BID) is appropriate for her weight and age - restarted 10/24 Continue metoprolol, digoxin and diltiazem for rate control (3) DM type 2 (diabetes mellitus, type 2): Plan: No on insulin at baseline. Do not need to continue ACHS checks here. She does not clearly need metformin however suggest this is addressed by her primary care physician (4) Chronic kidney disease, stage 3a: Plan: Creatinine 0.46 GFR 92 (5) Peripheral arterial disease: Plan: Type 2 diabetes w diabetic PAD Reason for above knee amputations (6) GERD (gastroesophageal reflux disease): Plan: Continue pantoprazole 40mg PO BID (7) Hypothyroid: Plan: Continue levothyroxine Plan Dispo: medically stable, patient to discharge to [facility] when transport available Admission and Anticipated Discharge Date Admission Date: October 23, 2023 Subjective Very drowsy this morning, opens eyes to sternal rub and then minimally following one-step commands. Unable to answer remaining questions. Per nursing, has voided (incontinent) status post removal of Abdi Review of Systems Review of Systems: Unobtainable due to cognitive status Physical Exam Physical Exam: General: Drowsy, NAD, laying in bed Cardiovascular: RRR, no M/R/G Pulmonary: CTAB anteriorly Abdomen: Soft, ND, no guarding Extremities: S/p R AKA with c/d/i dressing. L AKA unremarkable Neurologic: Drowsy, opens eyes to sternal rub, squeezes hands bilaterally Psychiatric: Appropriate mood/affect Results & Data Results & Data Vital Signs (Past 12 Hours) Vital Signs Temp Pulse Pulse Resp BP BP Pulse Ox 10/25/23 15:12 36.9 C 70 14 130/78 94 10/25/23 11:01 36.7 C 76 79 14 141/80 H 163/87 H 95 10/25/23 09:45 10/25/23 07:13 36.7 C 79 14 141/80 H 95 O2 Del Method 10/25/23 15:12 Room Air 10/25/23 11:01 10/25/23 09:45 Room Air 10/25/23 07:13 Room Air PG Care Time/CCT Total # of Minutes Spent Total Time Spent with Patient: Total time spent is greater than 50% in coordination of care (as documented) at patient's floor/unit and/or counseling patient: Coding Level of Care Code 62314 SUB INP/OBS CARE 2/35MIN Diagnoses Above knee amputation of right lower extremity S78.111A Permanent atrial fibrillation I48.21 Atrial fibrillation type: permanent Type 2 diabetes mellitus without complication, without long-term current use of insulin E11.9 Diabetes mellitus intermediate frame tender insulin use: without intermediate frame tender use Diabetes mellitus complication status: without complication Chronic kidney disease, stage 3a N18.3 Peripheral arterial disease I73.9 Gastroesophageal reflux disease, esophagitis presence not specified K21.9 Esophagitis presence: esophagitis presence not specified Acquired hypothyroidism E03.9 Hypothyroidism type: acquired (2) Afib Atrial fibrillation type: permanent Qualified Code(s): I48.21 - Permanent atrial fibrillation (3) DM type 2 (diabetes mellitus, type 2) Diabetes mellitus correction insulin use: without intermediate frame tender use Diabetes mellitus complication status: without complication Qualified Code(s): E11.9 - Type 2 diabetes mellitus without complications (6) GERD (gastroesophageal reflux disease) Esophagitis presence: esophagitis presence not specified Qualified Code(s): K21.9 - Gastro-esophageal reflux disease without esophagitis (7) Hypothyroid Hypothyroidism type: acquired Qualified Code(s): E03.9 - Hypothyroidism, unspecified
[2023-10-25] MEDS: DIGOXIN 0.125 MG TAB PO SCH (15:43)
[2023-10-25] MEDS: POLYETHYLENE (MIRALAX) 17 GM PACK PO SCH (20:55)
[2023-10-25] MEDS: GABAPENTIN 100 MG CAP PO SCH (20:55)
[2023-10-25] MEDS: SERTRALINE HCL 50 MG TABLET PO SCH (20:55)
[2023-10-26] MEDS: LEVOTHYROXINE SODIUM 75 MCG TABLET PO SCH (05:21)
[2023-10-26] MEDS: dilTIAZem HCL 240 MG CAPCR PO SCH (07:52)
[2023-10-26] MEDS: APIXABAN 2.5 MG TAB PO SCH (07:52)
[2023-10-26] MEDS: traMADol HCL 50 MG TABLET PO SCH (07:53)
[2023-10-26] MEDS: METOPROLOL SUCC 50MG EXT REL TAB PO SCH (07:53)
[2023-10-26] MEDS: ZINC SULFATE 220 MG CAPSULE PO SCH (07:53)
[2023-10-26] MEDS: MULTIVITAMIN TAB PO SCH (07:53)
[2023-10-26] MEDS: FUROSEMIDE 20 MG TAB PO SCH (07:53)
[2023-10-26] MEDS: PANTOprazole 40 MG TAB PO SCH (07:53)
== END 2023-10-26 09:00 | DRG 240 ==
LOC: ASU 09:01 → 3N 13:55